=== PATIENT | female | born 1945 | race Caucasian/White ===

== ENCOUNTER 2017-04-25 13:29 | Emergency (ER) | payer OTHER, MEDICARE ==
[2017-04-25] MEDS ORDERED: SODIUM CHLORIDE 0.9% 1,000 ML IV STA (14:00)
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
[2017-04-25] MEDS ORDERED: LORazepam 1 MG TAB PO STA (14:02)
[2017-04-25 14:35] LABS: Basophils % (A) 1 %; Eosinophils # (A) 0.1 k/uL (0-0.7); Eosinophils % (A) 2 %; HCT 41.8 % (34.0-46.0); Lymphocytes # (A) 1.7 k/uL (1.0-4.8); Lymphocytes % (A) 24 %; MCH 29.5 pg (25.0-35.0); MCHC 33.5 g/dL (31.0-37.0); Mean Platelet Volume 7.1; Monocytes # (A) 0.5 k/uL (0-1.0); Monocytes % (A) 6 %; Neutrophils % (A) 67 %; Platelet Count 308 k/uL (150-450); RBC 4.76 m/uL (3.80-5.40); RDW 13.7 % (11.5-15.5); WBC 7.4 k/uL (3.8-10.6)
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
[2017-04-25 14:43] LABS: Partial Thromboplastin Time 23.7 sec (22.0-30.0)
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
[2017-04-25 14:49] LABS: ALT 46 U/L (9-52); AST 29 U/L (14-36); Albumin 4.4 g/dL (3.5-5.0); Alcohol <10 mg/dL; Alkaline Phosphatase 82 U/L (38-126); Anion Gap 10 mmol/L; Blood Urea Nitrogen 16 mg/dL (7-17); Carbon Dioxide 28 mmol/L (22-30); Chloride 106 mmol/L (98-107); Glucose 103 mg/dL (74-99); Potassium 4.3 mmol/L (3.5-5.1); Sodium 144 mmol/L (137-145); Total Bilirubin 0.4 mg/dL (0.2-1.3); Total Protein 7.4 g/dL (6.3-8.2)
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
[2017-04-25 14:59] LABS: Creatine Kinase 49 U/L (30-135)
[2017-04-25 15:00] LABS: Appearance,Urine Clear (Clear); Bilirubin,Urine Negative (Negative); Blood,Urine Negative (Negative); Color,Urine Colorless; Glucose,Urine (UA) Negative (Negative); Ketones,Urine Negative (Negative); Leukocyte Esterase,Urine Negative (Negative); Nitrite,Urine Negative (Negative); PH, Urine 5.5 (5.0-8.0); Protein,Urine Negative (Negative); Specific Gravity,Urine 1.004 (1.001-1.035); Urobilinogen,Urine <2.0 mg/dL (<2.0)
[2017-04-25 15:11] LABS: Creatine Kinase MB 0.8 ng/mL (0.0-2.4); Troponin I <0.012 ng/mL (0.000-0.034)
[2017-04-25 18:32] VITALS: BP 152/63; PULSE 68; RESP 12; TEMP 98.5
== END 2017-04-25 18:51 | disposition home or self-care (01) ==
LOC: EC 13:29
DX: D32.9 Benign neoplasm of meninges, unspecified (principal); E78.5 Hyperlipidemia, unspecified; I10 Essential (primary) hypertension; E11.9 Type 2 diabetes mellitus without complications; Z79.82 Long term (current) use of aspirin; Z79.84 Long term (current) use of oral hypoglycemic drugs; Z79.899 Other long term (current) drug therapy; V49.50XA Passenger injured in collision with unspecified motor vehicles in traffic accident, initial encounter; Y93.89 Activity, other specified; Y92.410 Unspecified street and highway as the place of occurrence of the external cause
CPT/HCPCS: 36415; 70450; 71045; 72170; 80053; 80320; 81003; 82550; 82553; 84484; 85025; 85610; 85730; 93005; 96360; 96361; 99284

== ENCOUNTER → 2017-11-12 | Outpatient (CLI) | payer MEDICARE ==
--- NOTE | 2017-11-13 12:16 | ECHOF ---
Referral Reason:R55 syncope and collapse MEASUREMENTS -------- HEIGHT: 170.2 cm WEIGHT: 101.6 kg BP: IVSd: 1.3 cm (0.6 - 1.1) LVIDd: 3.8 cm (3.9 - 5.3) LVPWd: 1.5 cm (0.6 - 1.1) IVSs: 2.2 cm LVIDs: 2.5 cm LVPWs: 1.5 cm Ao Diam: 3.2 cm (2.0 - 3.7) AV Cusp: 1.8 cm (1.5 - 2.6) LA Diam: 3.7 cm (2.7 - 3.8) MV EXCURSION: 12.842 mm (> 18.000) MV EF SLOPE: 86 mm/s (70 - 150) EPSS: 0.7 cm MV E Dany: 1.08 m/s MV DecT: 205 ms MV A Dany: 1.11 m/s MV E/A Ratio: 0.97 RAP: 5.00 mmHg RVSP: 12.67 mmHg FINDINGS -------- Sinus rhythm. This was a technically good study. The left ventricular size is normal. There is mild concentric left ventricular hypertrophy. Overa ll left ventricular systolic function is normal with, an EF between 55 - 60 %. The right ventricle is normal in size and function. The left atrium is normal in size. The right atrium is normal in size. The aortic valve is trileaflet and appears structurally normal. There is trace mitral regurgitation. Trace tricuspid regurgitation present. The right ventricular systolic pressure, as measured by Dopp ler, is 12.67mmHg. Pulmonic valve appears structurally normal. The aortic root size is normal. The pericardium is normal. CONCLUSIONS -------- 1. Sinus rhythm. 2. This was a technically good study. 3. The left ventricular size is normal. 4. There is mild concentric left ventricular hypertrophy. 5. Overall left ventricular systolic function is normal with, an EF between 55 - 60 %. 6. The right ventricle is normal in size and function. 7. The left atrium is normal in size. 8. The right atrium is normal in size. 9. The aortic valve is trileaflet and appears structurally normal. 10. There is trace mitral regurgitation. 11. Trace tricuspid regurgitation present. 12. The right ventricular systolic pressure, as measured by Doppler, is 12.67mmHg. 13. Pulmonic valve appears structurally normal. 14. The aortic root size is normal. 15. The pericardium is normal. MIXER AND BLENDER: Candice Gagnon RDCS
== END | disposition home or self-care (01) ==
LOC: RADECHMAIN 12:55
PROVIDERS: ATTEND Family Medicine
DX: I08.1 Rheumatic disorders of both mitral and tricuspid valves (principal); I11.9 Hypertensive heart disease without heart failure
CPT/HCPCS: 93306

== ENCOUNTER → 2017-12-03 | Outpatient (CLI) | payer MEDICARE | LOC: RADMRIMAIN 12:05 | PROVIDERS: ATTEND Family Medicine | DX: Z53.9 Procedure and treatment not carried out, unspecified reason (principal) ==

== ENCOUNTER 2018-02-05 15:36 | Emergency (ER) | payer MEDICARE ==
[2018-02-05 15:56] VITALS: TEMP 98.2
--- NOTE | 2018-02-05 17:24 | ED ---
Recheck HPI - General Chief Complaint: Neuro Symptoms/Deficit Stated Complaint: Headaches/vision problems Time Seen by Provider: 02/05/18 16:55 Source: patient, RN notes reviewed, old records reviewed Mode of arrival: ambulatory Limitations: no limitations - History of Present Illness Initial Comments: This is a 72-year-old female the ER for evaluation. Today she presents for evaluation regards to headache dizziness vision changes in blood pressure issues. Patient has been increasing her blood pressure medication will blood pressure is continued to run high. Patient denies any chest pain shortness of breath or abdominal pain. Patient is stable medically medication for quite some time. Patient's current finding of abnormal blood pressure was issue with the family doctor did note elevated blood pressure, patient has been continually checking her blood pressure been noticing it to be continually high. MD Complaint: other (Abnormal blood pressure) -: month(s) Initial Visit For: other (Abnormal blood pressure) Symptoms Since Prior Visit: no new symptoms Associated Symptoms: none Treatments Prior to Arrival: other (None) - Related Data Home Medications Medication Instructions Recorded Confirmed Ascorbic Acid [Vitamin C] 1,000 mg PO DAILY 04/25/17 02/05/18 Aspirin 81 mg PO DAILY 04/25/17 02/05/18 Levothyroxine Sodium [Synthroid] 112 mcg PO DAILY 04/25/17 02/05/18 Metoprolol Succinate [Toprol XL] 25 mg PO DAILY 04/25/17 02/05/18 Insulin Glargine,Hum.rec.anlog 18 unit SQ HS 02/05/18 02/05/18 [Lantus Solostar] Lisinopril [Zestril] 10 mg PO DAILY 02/05/18 02/05/18 Omeprazole 20 mg PO DAILY 02/05/18 02/05/18 Previous Rx's Medication Instructions Recorded Metoprolol Succinate (ER) [Toprol 50 mg PO DAILY #30 tab 02/05/18 XL] Allergies Allergy/AdvReac Type Severity Reaction Status Date / Time No Known Allergies Allergy Verified 02/05/18 17:53 Review of Systems ROS Statement: Those systems with pertinent positive or pertinent negative responses have been documented in the HPI. ROS Other: All systems not noted in ROS Statement are negative. Past Medical History Past Medical History: Diabetes Mellitus, Hyperlipidemia, Hypertension History of Any Multi-Drug Resistant Organisms: None Reported Past Surgical History: Tubal Ligation Past Psychological History: No Psychological Hx Reported Smoking Status: Never smoker Past Alcohol Use History: None Reported Past Drug Use History: None Reported General Exam Limitations: no limitations General appearance: alert, in no apparent distress Head exam: Present: atraumatic, normocephalic, normal inspection Eye exam: Present: normal appearance, PERRL, EOMI. Absent: scleral icterus, conjunctival injection, periorbital swelling ENT exam: Present: normal exam, mucous membranes moist Neck exam: Present: normal inspection. Absent: tenderness, meningismus, lymphadenopathy Respiratory exam: Present: normal lung sounds bilaterally. Absent: respiratory distress, wheezes, rales, rhonchi, stridor Cardiovascular Exam: Present: regular rate, normal rhythm, normal heart sounds. Absent: systolic murmur, diastolic murmur, rubs, gallop, clicks GI/Abdominal exam: Present: soft, normal bowel sounds. Absent: distended, tenderness, guarding, rebound, rigid Extremities exam: Present: normal inspection, full ROM, normal capillary refill. Absent: tenderness, pedal edema, joint swelling, calf tenderness Back exam: Present: normal inspection Neurological exam: Present: alert, oriented X3, CN II-XII intact Psychiatric exam: Present: normal affect, normal mood Skin exam: Present: warm, dry, intact, normal color. Absent: rash Course Vital Signs 02/05/18 02/05/18 15:53 20:01 Temperature 98.2 F Pulse Rate 74 65 Respiratory 18 16 Rate Blood Pressure 157/75 145/71 O2 Sat by Pulse 97 98 Oximetry - Reevaluation(s) Reevaluation #1: Medical record is reviewed Patient has improvement in blood pressure here in the emergency room and remains asymptomatic Medical Decision Making - Medical Decision Making 72 female the ER for evaluation of elevated blood pressure. We did have normal CAT scan lab values and EKG here in the ER, patient can be discharged home with increased blood pressure - Lab Data Result diagrams: 02/05/18 18:03 02/05/18 18:03 Lab Results 02/05/18 02/05/18 02/05/18 Range/Units 18:03 18:03 18:03 WBC 7.6 (3.8-10.6) k/uL RBC 4.80 (3.80-5.40) m/uL Hgb 14.2 (11.4-16.0) gm/dL Hct 42.9 (34.0-46.0) % MCV 89.4 (80.0-100.0) fL MCH 29.5 (25.0-35.0) pg MCHC 33.0 (31.0-37.0) g/dL RDW 14.1 (11.5-15.5) % Plt Count 295 (150-450) k/uL Neutrophils % 59 % Lymphocytes % 31 % Monocytes % 5 % Eosinophils % 2 % Basophils % 1 % Neutrophils # 4.4 (1.3-7.7) k/uL Lymphocytes # 2.3 (1.0-4.8) k/uL Monocytes # 0.4 (0-1.0) k/uL Eosinophils # 0.2 (0-0.7) k/uL Basophils # 0.1 (0-0.2) k/uL Sodium 143 (137-145) mmol/L Potassium 4.5 (3.5-5.1) mmol/L Chloride 108 H (98-107) mmol/L Carbon Dioxide 25 (22-30) mmol/L Anion Gap 10 mmol/L BUN 17 (7-17) mg/dL Creatinine 0.76 (0.52-1.04) mg/dL Est GFR (CKD-EPI)AfAm >90 (>60 ml/min/1.73 sqM) Est GFR (CKD-EPI)NonAf 80 (>60 ml/min/1.73 sqM) Glucose 87 (74-99) mg/dL Calcium 9.9 (8.4-10.2) mg/dL Phosphorus 3.8 (2.5-4.5) mg/dL Magnesium 1.8 (1.6-2.3) mg/dL Total Bilirubin 0.5 (0.2-1.3) mg/dL AST 29 (14-36) U/L ALT 35 (9-52) U/L Alkaline Phosphatase 86 (38-126) U/L Total Creatine Kinase 52 (30-135) U/L CK-MB (CK-2) 1.0 (0.0-2.4) ng/mL CK-MB (CK-2) Rel Index 1.9 Troponin I <0.012 (0.000-0.034) ng/mL Total Protein 7.7 (6.3-8.2) g/dL Albumin 4.5 (3.5-5.0) g/dL Urine Color Urine Appearance (Clear) Urine pH (5.0-8.0) Ur Specific [place] (1.001-1.035) Urine Protein (Negative) Urine Glucose (UA) (Negative) Urine Ketones (Negative) Urine Blood (Negative) Urine Nitrite (Negative) Urine Bilirubin (Negative) Urine Urobilinogen (<2.0) mg/dL Ur Leukocyte Esterase (Negative) Urine RBC (0-5) /hpf Urine WBC (0-5) /hpf 02/05/18 Range/Units 19:32 WBC (3.8-10.6) k/uL RBC (3.80-5.40) m/uL Hgb (11.4-16.0) gm/dL Hct (34.0-46.0) % MCV (80.0-100.0) fL MCH (25.0-35.0) pg MCHC (31.0-37.0) g/dL RDW (11.5-15.5) % Plt Count (150-450) k/uL Neutrophils % % Lymphocytes % % Monocytes % % Eosinophils % % Basophils % % Neutrophils # (1.3-7.7) k/uL Lymphocytes # (1.0-4.8) k/uL Monocytes # (0-1.0) k/uL Eosinophils # (0-0.7) k/uL Basophils # (0-0.2) k/uL Sodium (137-145) mmol/L Potassium (3.5-5.1) mmol/L Chloride (98-107) mmol/L Carbon Dioxide (22-30) mmol/L Anion Gap mmol/L BUN (7-17) mg/dL Creatinine (0.52-1.04) mg/dL Est GFR (CKD-EPI)AfAm (>60 ml/min/1.73 sqM) Est GFR (CKD-EPI)NonAf (>60 ml/min/1.73 sqM) Glucose (74-99) mg/dL Calcium (8.4-10.2) mg/dL Phosphorus (2.5-4.5) mg/dL Magnesium (1.6-2.3) mg/dL Total Bilirubin (0.2-1.3) mg/dL AST (14-36) U/L ALT (9-52) U/L Alkaline Phosphatase (38-126) U/L Total Creatine Kinase (30-135) U/L CK-MB (CK-2) (0.0-2.4) ng/mL CK-MB (CK-2) Rel Index Troponin I (0.000-0.034) ng/mL Total Protein (6.3-8.2) g/dL Albumin (3.5-5.0) g/dL Urine Color Light Yellow Urine Appearance Clear (Clear) Urine pH 6.0 (5.0-8.0) Ur Specific [place] 1.006 (1.001-1.035) Urine Protein Negative (Negative) Urine Glucose (UA) Negative (Negative) Urine Ketones Negative (Negative) Urine Blood Negative (Negative) Urine Nitrite Negative (Negative) Urine Bilirubin Negative (Negative) Urine Urobilinogen <2.0 (<2.0) mg/dL Ur Leukocyte Esterase Small H (Negative) Urine RBC 1 (0-5) /hpf Urine WBC 5 (0-5) /hpf - EKG Data -: EKG Interpreted by Me (EKG shows sinus bradycardia, rate 59, MD 160, QRS 90 QTc 427) - Radiology Data Radiology results: report reviewed (CT brain is negative for acute disease), image reviewed Disposition Clinical Impression: Uncontrolled hypertension Disposition: HOME SELF-CARE Condition: Good Instructions: Hypertension (ED) Prescriptions: Metoprolol Succinate (ER) [Toprol XL] 50 mg PO DAILY #30 tab Is patient prescribed a controlled substance at d/c from ED?: No Referrals: Mitch Hayes DO [Primary Care Provider] - 1-2 days
[2018-02-05] MEDS ORDERED: LABETALOL 5 MG/ML VIAL MDV IVP STA (18:27)
--- NOTE | 2018-02-05 18:53 | CT ---
EXAMINATION TYPE: CT brain wo con DATE OF EXAM: 02/05/2018 COMPARISON: 04/25/2017 HISTORY: HEADACHES, VISION ISSUES, HYPERTENTION CT DLP: 1105.4 mGycm Automated exposure control for dose reduction was used. FINDINGS: Ventricles and sulci appear normal. There is no mass effect nor midline shift. There is no sign of in tracranial hemorrhage. The calvarium is intact. There is 2 cm extra-axial calcifying mass at the inne r table of the lateral right frontal lobe consistent with a meningioma. IMPRESSION: RIGHT FRONTAL LOBE CALCIFYING MASS CONSISTENT WITH MENINGIOMA AND UNCHANGED COMPARED TO OLD EXAM. NO ACUTE INTRACRANIAL ABNORMALITY.
[2018-02-05 19:31] LABS: Basophils # (A) 0.1 k/uL (0-0.2); Basophils % (A) 1 %; Eosinophils # (A) 0.2 k/uL (0-0.7); Eosinophils % (A) 2 %; HCT 42.9 % (34.0-46.0); HGB 14.2 gm/dL (11.4-16.0); Lymphocytes # (A) 2.3 k/uL (1.0-4.8); Lymphocytes % (A) 31 %; MCH 29.5 pg (25.0-35.0); MCV 89.4 fL (80.0-100.0); Monocytes # (A) 0.4 k/uL (0-1.0); Monocytes % (A) 5 %; Neutrophils # (A) 4.4 k/uL (1.3-7.7); Neutrophils % (A) 59 %; Platelet Count 295 k/uL (150-450); RDW 14.1 % (11.5-15.5); WBC 7.6 k/uL (3.8-10.6)
[2018-02-05 19:43] LABS: ALT 35 U/L (9-52); AST 29 U/L (14-36); Albumin 4.5 g/dL (3.5-5.0); Alkaline Phosphatase 86 U/L (38-126); Anion Gap 10 mmol/L; Blood Urea Nitrogen 17 mg/dL (7-17); Calcium 9.9 mg/dL (8.4-10.2); Carbon Dioxide 25 mmol/L (22-30); Chloride 108 mmol/L (98-107); Glucose 87 mg/dL (74-99); Magnesium 1.8 mg/dL (1.6-2.3); Phosphorus 3.8 mg/dL (2.5-4.5); Potassium 4.5 mmol/L (3.5-5.1); Sodium 143 mmol/L (137-145); Total Bilirubin 0.5 mg/dL (0.2-1.3); Total Protein 7.7 g/dL (6.3-8.2)
[2018-02-05 19:50] LABS: Creatine Kinase 52 U/L (30-135)
[2018-02-05 19:57] LABS: Appearance,Urine Clear (Clear); Bilirubin,Urine Negative (Negative); Blood,Urine Negative (Negative); Color,Urine Light Yellow; Glucose,Urine (UA) Negative (Negative); Ketones,Urine Negative (Negative); Leukocyte Esterase,Urine Small (Negative); Nitrite,Urine Negative (Negative); Protein,Urine Negative (Negative); RBC,Urine 1 /hpf (0-5); Specific Gravity,Urine 1.006 (1.001-1.035); Urobilinogen,Urine <2.0 mg/dL (<2.0); WBC,Urine 5 /hpf (0-5)
[2018-02-05 20:02] VITALS: BP 145/71; PULSE 65; RESP 16
[2018-02-05 20:03] LABS: Troponin I <0.012 ng/mL (0.000-0.034)
== END 2018-02-05 20:07 | disposition home or self-care (01) ==
LOC: EC 15:36
DX: I10 Essential (primary) hypertension (principal); E11.9 Type 2 diabetes mellitus without complications; Z79.4 Long term (current) use of insulin; Z79.82 Long term (current) use of aspirin; Z79.899 Other long term (current) drug therapy
CPT/HCPCS: 36415; 70450; 80053; 81001; 82550; 82553; 83735; 84100; 84484; 85025; 93005; 96374; 99285

== ENCOUNTER → 2018-11-01 | Outpatient (CLI) | payer MEDICARE ==
--- NOTE | 2018-11-01 14:39 | XR ---
EXAMINATION TYPE: XR finger RT DATE OF EXAM: 11/01/2018 COMPARISON: None HISTORY: Cellulitis, July stuck in finger TECHNIQUE: 2 view right index finger FINDINGS: There are advanced degenerative changes at the index finger metacarpal phalangeal joint spa ce. Note is made of degenerative changes at the first metacarpal phalangeal joint space the scaphoid. No acute fractures are evident. Radiopaque or radiolucent foreign bodies are not identified. There is subluxation of the proximal phalanx on the second metacarpal. IMPRESSION: 1. Advanced degenerative changes second metacarpal phalangeal joint space. 2. Mild diffuse joint space degenerative changes of the remaining visualized osseous structures. 3. No foreign bodies are identified.
== END ==
LOC: RADXRYALE 13:57
PROVIDERS: ATTEND Physician Assistant Medical
DX: M19.041 Primary osteoarthritis, right hand (principal)

== ENCOUNTER → 2019-01-09 | Outpatient (CLI) | payer MEDICARE ==
--- NOTE | 2019-01-10 13:54 | MM ---
Reason for exam: screening (asymptomatic). Last mammogram was performed 3 years and 1 month ago. History: Patient is postmenopausal. Took hormonal contraceptives for 1 year beginning at age 21. Physical Findings: A clinical breast exam by your physician is recommended on an annual basis and results should be correlated with mammographic findings. MG 3D Screening Mammo W/Cad Bilateral CC and MLO view(s) were taken. Prior study comparison: November 26, 2015, bilateral MG 3d screening mammo w/cad. There are scattered fibroglandular densities. No suspicious abnormality. No significant changes when compared with prior studies. ASSESSMENT: Negative, BI-RAD 1 RECOMMENDATION: Routine screening mammogram of both breasts in 1 year.
== END | disposition home or self-care (01) ==
LOC: RADMAMWWP 09:14
PROVIDERS: ATTEND Family Medicine
DX: Z12.31 Encounter for screening mammogram for malignant neoplasm of breast (principal)
CPT/HCPCS: 77063; 77067

== ENCOUNTER → 2019-08-27 | Outpatient (CLI) | payer MEDICARE ==
--- NOTE | 2019-08-27 14:49 | US ---
EXAMINATION TYPE: US kidneys/renal and bladder DATE OF EXAM: 08/27/2019 COMPARISON: NONE CLINICAL HISTORY: I129 Chronic Kidney Disease, N183 Chronic kidney disease. CKD EXAM MEASUREMENTS: Right Kidney: 10.5 x 4.4 x 4.4 cm Left Kidney: 10.9 x 5.6 x 4.8 cm Right Kidney: wnl Left Kidney: wnl Bladder: wnl Bilateral Jets seen: Yes There is no evidence for hydronephrosis at this point in time. No nephrolithiasis is seen. No aditya s are identified on images saved. The urinary bladder is satisfactorily distended. Bilateral ureter al jets are seen. IMPRESSION: No hydronephrosis is seen bilaterally.
== END | disposition home or self-care (01) ==
LOC: RADUSWWP 14:19
PROVIDERS: ATTEND Family Medicine
DX: I12.9 Hypertensive chronic kidney disease with stage 1 through stage 4 chronic kidney disease, or unspecified chronic kidney disease (principal); N18.3 Chronic kidney disease, stage 3 (moderate)
CPT/HCPCS: 76770

== ENCOUNTER → 2020-06-02 | Outpatient (CLI) | payer MEDICARE ==
--- NOTE | 2020-06-02 09:27 | US ---
EXAMINATION TYPE: US abdomen limited DATE OF EXAM: 06/02/2020 COMPARISON: NONE CLINICAL HISTORY: R10.11 RUQ Pain. right upper back issue, got out of bed a couple weeks ago and back pain was present. EXAM MEASUREMENTS: Liver Length: 18.8 cm Gallbladder Wall: 0.2 cm CBD: 0.6 cm Right Kidney: 9.1 x 3.4 x 4.2 cm Pancreas: wnl Liver: wnl Gallbladder: wnl Evidence for sonographic Rivers's sign: no CBD: wnl Right Kidney: wnl IMPRESSION: No distinct abnormality seen.
== END | disposition home or self-care (01) ==
LOC: RADUSWWP 08:04
PROVIDERS: ATTEND Family Medicine
DX: R10.11 Right upper quadrant pain (principal)
CPT/HCPCS: 76705

== ENCOUNTER 2021-02-20 13:26 | Inpatient (IN) | payer MEDICARE ==
[2021-02-20] MEDS ORDERED: SODIUM CHLORIDE 0.9% 1,000 ML IV STA (14:33)
--- NOTE | 2021-02-20 14:43 | ED ---
General Adult HPI - General Chief complaint: Dizziness Stated complaint: dizziness, BP fluctuating Time Seen by Provider: 02/20/21 14:06 Source: patient, family, RN notes reviewed Mode of arrival: EMS Limitations: no limitations - History of Present Illness Initial comments: 75-year-old female presents to the emergency department with complaints of dizz iness onset this morning. Patient states she is COVID +, with symptom onset February 09. States she was started on oral steroids Sunday the and declined the monoclonal antibody infusion at that time. States since Sunday she has had elevated with glucose readings and is using sliding scale insulin for coverage. Woke up this morning with profuse sweating, feeling lightheaded, and somewhat short of breath. Reports a morning blood pressure reading of 66/49 and glucose of 130. He also had a mild headache for which she took Tylenol and had improvement. States she was unable to prepare a meal for herself due to her dizziness therefore family came over and assisted her. Has also had decreased appetite and poor oral intake. States recheck of her blood pressure was 101/53 around noon. States dizziness/lightheaded has persisted; shortness of breath and diaphoresis have resolved. Patient denies fever, chills, blurry vision, chest pain, difficulty breathing, abdominal pain, nausea, vomiting, diarrhea, dysuria, or hematuria. - Related Data Home Medications Medication Instructions Recorded Confirmed Ascorbic Acid [Vitamin C] 1,000 mg PO BID 04/25/17 02/20/21 Aspirin 81 mg PO DAILY 04/25/17 02/20/21 Levothyroxine Sodium [Synthroid] 112 mcg PO DAILY 04/25/17 02/20/21 Insulin Glargine,Hum.rec.anlog 24 unit SQ HS 02/05/18 02/20/21 [Lantus Solostar] Omeprazole 20 mg PO AC-BRKFST 02/05/18 02/20/21 Allopurinol [Zyloprim] 100 mg PO DAILY 02/20/21 02/20/21 Carvedilol [Coreg] 25 mg PO BID 02/20/21 02/20/21 Cholecalciferol [Vitamin D3 (25 25 mcg PO DAILY 02/20/21 02/20/21 Mcg = 1000 Iu)] Ezetimibe [Zetia] 10 mg PO DAILY 02/20/21 02/20/21 Furosemide [Lasix] 20 mg PO DAILY PRN 02/20/21 02/20/21 Indapamide [Lozol] 1.25 mg PO DAILY 02/20/21 02/20/21 Insulin Lispro [humaLOG Kwikpen] See Protocol SQ AC-TID 02/20/21 02/20/21 Isosorbide Mononitrate ER [Imdur] 30 mg PO DAILY 02/20/21 02/20/21 Multivitamins, Thera [Multivitamin 1 tab PO DAILY 02/20/21 02/20/21 (formulary)] [place]-3 Fatty Acids/Fish Oil [Fish 1 cap PO BID 02/20/21 02/20/21 Oil 1,000 mg Softgel] Rosuvastatin [Crestor] 10 mg PO HS 02/20/21 02/20/21 Zinc 50 mg PO DAILY 02/20/21 02/20/21 lisinopriL [Zestril] 20 mg PO DAILY 02/20/21 02/20/21 Allergies Allergy/AdvReac Type Severity Reaction Status Date / Time No Known Allergies Allergy Verified 02/20/21 16:01 Review of Systems ROS Statement: Those systems with pertinent positive or pertinent negative responses have been documented in the HPI. ROS Other: All systems not noted in ROS Statement are negative. Past Medical History Past Medical History: Diabetes Mellitus, Hyperlipidemia, Hypertension History of Any Multi-Drug Resistant Organisms: None Reported Past Surgical History: Tubal Ligation Past Psychological History: No Psychological Hx Reported Smoking Status: Never smoker Past Alcohol Use History: None Reported Past Drug Use History: None Reported General Exam Limitations: no limitations (Developed, well nourished female in no acute distress. Initial temperature 98.1, pulse 73, respirations 18, blood pressure 102/63, pulse ox 99% on room air.) General appearance: alert, in no apparent distress Head exam: Present: atraumatic, normocephalic, normal inspection Eye exam: Present: normal appearance, PERRL, EOMI. Absent: scleral icterus, conjunctival injection, periorbital swelling, periorbital tenderness Pupils: Present: normal accommodation ENT exam: Present: mucous membranes dry Neck exam: Present: normal inspection. Absent: tenderness, meningismus, lymphadenopathy Respiratory exam: Present: normal lung sounds bilaterally. Absent: respiratory distress, wheezes, rales, rhonchi, stridor Cardiovascular Exam: Present: regular rate, normal rhythm, normal heart sounds. Absent: systolic murmur, diastolic murmur, rubs, gallop, clicks GI/Abdominal exam: Present: soft, normal bowel sounds. Absent: distended, tenderness, guarding, rebound, rigid Neurological exam: Present: alert, oriented X3, CN II-XII intact Psychiatric exam: Present: normal affect, normal mood Skin exam: Present: warm, dry, intact, normal color Course Vital Signs 02/20/21 02/20/21 02/20/21 13:56 17:00 18:14 Temperature 98.1 F Pulse Rate 73 67 80 Respiratory 18 18 18 Rate Blood Pressure 102/63 119/53 154/77 O2 Sat by Pulse 99 98 96 Oximetry 02/20/21 02/20/21 02/20/21 18:16 19:19 23:11 Temperature Pulse Rate 67 74 Respiratory 16 16 Rate Blood Pressure 139/63 154/77 151/79 O2 Sat by Pulse 97 98 Oximetry - Reevaluation(s) Reevaluation #1: 02/20/21 17:47 Upon reevaluation, patient's family is present at bedside. Discussed recommendation that patient be admitted to the hospital for further evaluation and treatment due to her persistent weakness and concern for her safety at home. Patient and family are agreeable to this plan. She is resting comfortably and is able to tolerate small amount of oral intake. Medical Decision Making - Medical Decision Making This is a 75-year-old female with a past medical history of diabetes and hypertension who presents to the emergency department for evaluation of weakness. Patient is Covid positive and is on oral steroids. Upon exam, patient is weak and has very dry oral mucosa. Vital signs are stable. However, she reports an episode of hypotension and diaphoresis this morning. States she is too weak to care for herself and reports significant decrease in appetite and oral intake. Laboratory studies were obtained showing dehydration and renal impairment. D-Dimer is elevated, though when adjusted for age, is not alarming. Blood glucose is 110. Chest Xray and EKG are unremarkable. After discussion with patient and family, it was felt that patient would benefit from inpatient admission for IV hydration, blood pressure monitoring, and tight glucose control. This patient's care was discussed with attending, Dr. Ferrell who spoke with admitting physician provider. - Lab Data Result diagrams: 02/20/21 15:25 02/20/21 15:25 Lab Results 02/20/21 02/20/21 02/20/21 Range/Units 15:25 15:25 15:25 WBC 10.3 (3.8-10.6) k/uL RBC 4.43 (3.80-5.40) m/uL Hgb 13.1 (11.4-16.0) gm/dL Hct 39.5 (34.0-46.0) % MCV 89.1 (80.0-100.0) fL MCH 29.6 (25.0-35.0) pg MCHC 33.2 (31.0-37.0) g/dL RDW 15.1 (11.5-15.5) % Plt Count 262 (150-450) k/uL MPV 7.0 Neutrophils % 81 % Lymphocytes % 13 % Monocytes % 4 % Eosinophils % 0 % Basophils % 0 % Neutrophils # 8.3 H (1.3-7.7) k/uL Lymphocytes # 1.4 (1.0-4.8) k/uL Monocytes # 0.5 (0-1.0) k/uL Eosinophils # 0.0 (0-0.7) k/uL Basophils # 0.0 (0-0.2) k/uL PT (9.0-12.0) sec INR (<1.2) APTT (22.0-30.0) sec D-Dimer (<0.60) mg/L FEU Sodium 131 L (137-145) mmol/L Potassium 3.6 (3.5-5.1) mmol/L Chloride 101 (98-107) mmol/L Carbon Dioxide 21 L (22-30) mmol/L Anion Gap 9 mmol/L BUN 44 H (7-17) mg/dL Creatinine 1.20 H (0.52-1.04) mg/dL Est GFR (CKD-EPI)AfAm 52 (>60 ml/min/1.73 sqM) Est GFR (CKD-EPI)NonAf 45 (>60 ml/min/1.73 sqM) Glucose 110 H (74-99) mg/dL Calcium 8.4 (8.4-10.2) mg/dL Total Bilirubin 0.8 (0.2-1.3) mg/dL AST 30 (14-36) U/L ALT 20 (4-34) U/L Alkaline Phosphatase 63 (38-126) U/L Troponin I <0.012 (0.000-0.034) ng/mL Total Protein 6.2 L (6.3-8.2) g/dL Albumin 3.3 L (3.5-5.0) g/dL Urine Color Urine Appearance (Clear) Urine pH (5.0-8.0) Ur Specific [place] (1.001-1.035) Urine Protein (Negative) Urine Glucose (UA) (Negative) Urine Ketones (Negative) Urine Blood (Negative) Urine Nitrite (Negative) Urine Bilirubin (Negative) Urine Urobilinogen (<2.0) mg/dL Ur Leukocyte Esterase (Negative) Urine RBC (0-5) /hpf Urine WBC (0-5) /hpf Urine Bacteria (None) /hpf Hyaline Casts (0-2) /lpf Urine Mucus (None) /hpf 02/20/21 02/20/21 Range/Units 15:25 18:43 WBC (3.8-10.6) k/uL RBC (3.80-5.40) m/uL Hgb (11.4-16.0) gm/dL Hct (34.0-46.0) % MCV (80.0-100.0) fL MCH (25.0-35.0) pg MCHC (31.0-37.0) g/dL RDW (11.5-15.5) % Plt Count (150-450) k/uL MPV Neutrophils % % Lymphocytes % % Monocytes % % Eosinophils % % Basophils % % Neutrophils # (1.3-7.7) k/uL Lymphocytes # (1.0-4.8) k/uL Monocytes # (0-1.0) k/uL Eosinophils # (0-0.7) k/uL Basophils # (0-0.2) k/uL PT 10.1 (9.0-12.0) sec INR 0.9 (<1.2) APTT 23.8 (22.0-30.0) sec D-Dimer 0.68 H (<0.60) mg/L FEU Sodium (137-145) mmol/L Potassium (3.5-5.1) mmol/L Chloride (98-107) mmol/L Carbon Dioxide (22-30) mmol/L Anion Gap mmol/L BUN (7-17) mg/dL Creatinine (0.52-1.04) mg/dL Est GFR (CKD-EPI)AfAm (>60 ml/min/1.73 sqM) Est GFR (CKD-EPI)NonAf (>60 ml/min/1.73 sqM) Glucose (74-99) mg/dL Calcium (8.4-10.2) mg/dL Total Bilirubin (0.2-1.3) mg/dL AST (14-36) U/L ALT (4-34) U/L Alkaline Phosphatase (38-126) U/L Troponin I (0.000-0.034) ng/mL Total Protein (6.3-8.2) g/dL Albumin (3.5-5.0) g/dL Urine Color Yellow Urine Appearance Clear (Clear) Urine pH 5.5 (5.0-8.0) Ur Specific [place] 1.012 (1.001-1.035) Urine Protein Negative (Negative) Urine Glucose (UA) Negative (Negative) Urine Ketones Negative (Negative) Urine Blood Negative (Negative) Urine Nitrite Negative (Negative) Urine Bilirubin Negative (Negative) Urine Urobilinogen <2.0 (<2.0) mg/dL Ur Leukocyte Esterase Moderate H (Negative) Urine RBC 1 (0-5) /hpf Urine WBC 16 H (0-5) /hpf Urine Bacteria Occasional H (None) /hpf Hyaline Casts 1 (0-2) /lpf Urine Mucus Rare H (None) /hpf - EKG Data EKG shows normal: sinus rhythm Rate: normal EKG Comments: EKG was obtained at 1513 and shows normal sinus rhythm. Ventricular rate 63, HI interval 150, QRS duration 80, QT/QTc 422/with 31. Interpretation normal ECG. - Radiology Data Radiology results: report reviewed, image reviewed Two-view chest x-ray was obtained. Report was reviewed in its entirety. Impression per Dr. Weiss as no acute cardiopulmonary process. Disposition Clinical Impression: COVID-19, Weakness, Dehydration Disposition: ADMITTED IP TO THIS [facility] Condition: Serious Is patient prescribed a controlled substance at d/c from ED?: No Decision Date: 02/20/21 Decision Time: 19:51
--- NOTE | 2021-02-20 15:46 | XR ---
EXAMINATION TYPE: XR chest 2V DATE OF EXAM: 02/20/2021 COMPARISON: Radiograph 04/25/2017 HISTORY: Cough TECHNIQUE: Frontal and lateral views of the chest are obtained. FINDINGS: There is no focal air space opacity, pleural effusion, or pneumothorax seen. The cardiac silhouette size is within normal limits. The osseous structures are intact. IMPRESSION: No acute cardiopulmonary process.
[2021-02-20 15:50] LABS: Albumin 3.3 g/dL (3.5-5.0); Calcium 8.4 mg/dL (8.4-10.2); Potassium 3.6 mmol/L (3.5-5.1); Total Bilirubin 0.8 mg/dL (0.2-1.3); Total Protein 6.2 g/dL (6.3-8.2)
[2021-02-20 15:51] LABS: INR 0.9 (<1.2); Partial Thromboplastin Time 23.8 sec (22.0-30.0); Prothrombin Time 10.1 sec (9.0-12.0)
[2021-02-20 16:10] LABS: Basophils % (A) 0 %; Eosinophils % (A) 0 %; HCT 39.5 % (34.0-46.0); HGB 13.1 gm/dL (11.4-16.0); Lymphocytes # (A) 1.4 k/uL (1.0-4.8); Lymphocytes % (A) 13 %; MCH 29.6 pg (25.0-35.0); MCHC 33.2 g/dL (31.0-37.0); MCV 89.1 fL (80.0-100.0); Monocytes # (A) 0.5 k/uL (0-1.0); Monocytes % (A) 4 %; Neutrophils # (A) 8.3 k/uL (1.3-7.7); Neutrophils % (A) 81 %; Platelet Count 262 k/uL (150-450); RBC 4.43 m/uL (3.80-5.40); RDW 15.1 % (11.5-15.5); WBC 10.3 k/uL (3.8-10.6)
[2021-02-20] MEDS ORDERED: SODIUM CHLORIDE 0.9% 500 ML 500 ML IV STA (17:45)
[2021-02-20] MEDS ORDERED: IBUPROFEN 600 MG TAB PO STA (18:05)
[2021-02-20 18:54] LABS: Appearance,Urine Clear (Clear); Bacteria,Urine Occasional /hpf; Bilirubin,Urine Negative (Negative); Blood,Urine Negative (Negative); Color,Urine Yellow; Glucose,Urine (UA) Negative (Negative); Hyaline Casts,Urine 1 /lpf (0-2); Ketones,Urine Negative (Negative); Leukocyte Esterase,Urine Moderate (Negative); Mucus,Urine Rare /hpf; Nitrite,Urine Negative (Negative); PH, Urine 5.5 (5.0-8.0); Protein,Urine Negative (Negative); RBC,Urine 1 /hpf (0-5); Specific Gravity,Urine 1.012 (1.001-1.035); Urobilinogen,Urine <2.0 mg/dL (<2.0); WBC,Urine 16 /hpf (0-5)
[2021-02-20] MEDS ORDERED: ONDANSETRON 4 MG/2 ML VIAL IVP PRN (19:36)
[2021-02-20] MEDS ORDERED: NALOXONE 0.4 MG/ML 1 ML VIAL IV PRN (19:36)
[2021-02-20] MEDS: ATORVASTATIN 20 MG TAB PO SCH (20:47)
[2021-02-20] MEDS: carvediloL 12.5 MG TAB PO SCH (20:47)
[2021-02-20] MEDS: ASCORBIC ACID 500 MG TAB PO SCH (20:48)
[2021-02-20] MEDS: INSULIN DETEMIR (LEVEMIR) 100 UNIT/ML SYR SQ SCH (20:48)
[2021-02-20 20:55] LABS: Glucose,Whole Blood 153 mg/dL (75-99)
[2021-02-20] MEDS ORDERED: NON FORMULARY DRUG (Omega-3 Fatty Acids/Fish Oil [Fish Oil 1,000 Mg Softgel] 1 EACH Capsul PO SCH (21:00)
[2021-02-21] MEDS: ACETAMINOPHEN TAB 325 MG TAB PO PRN ×2 (08:00→17:28)
[2021-02-21] MEDS: SODIUM CHLORIDE 0.9% 1,000 ML IV SCH ×4 (09:12→20:27)
[2021-02-21] MEDS: ISOSORBIDE MONONITRATE ER 30 MG TAB.ER.24H PO SCH (09:12)
[2021-02-21] MEDS: PANTOPRAZOLE 40 MG TABLET PO SCH (09:13)
[2021-02-21] MEDS: MULTIVITAMINS, THERA 1 EACH TAB PO SCH (09:13)
[2021-02-21] MEDS: allopurinoL 100 MG TAB PO SCH (09:13)
[2021-02-21] MEDS: carvediloL 12.5 MG TAB PO SCH ×2 (09:13→18:13)
[2021-02-21] MEDS: ASCORBIC ACID 500 MG TAB PO SCH ×2 (09:13→20:27)
[2021-02-21] MEDS: hydroCHLOROthiazide 12.5 MG CAP PO SCH (09:14)
[2021-02-21] MEDS: ZINC SULFATE 220 MG CAP PO SCH (09:14)
[2021-02-21] MEDS: ASPIRIN 81 MG PO SCH (09:14)
[2021-02-21] MEDS: CHOLECALCIFEROL 25 MCG (1000 IU) TABLET PO SCH (09:14)
[2021-02-21 10:58] LABS: Basophils % (A) 0 %; Eosinophils % (A) 0 %; HCT 37.9 % (34.0-46.0); HGB 12.4 gm/dL (11.4-16.0); Lymphocytes # (A) 0.9 k/uL (1.0-4.8); Lymphocytes % (A) 9 %; MCH 29.1 pg (25.0-35.0); MCHC 32.8 g/dL (31.0-37.0); MCV 88.6 fL (80.0-100.0); Mean Platelet Volume 7.2; Monocytes # (A) 0.4 k/uL (0-1.0); Monocytes % (A) 4 %; Neutrophils # (A) 8.3 k/uL (1.3-7.7); Neutrophils % (A) 85 %; Platelet Count 263 k/uL (150-450); RBC 4.28 m/uL (3.80-5.40); RDW 14.7 % (11.5-15.5); WBC 9.7 k/uL (3.8-10.6)
[2021-02-21 11:09] LABS: Calcium 8.3 mg/dL (8.4-10.2); Potassium 3.8 mmol/L (3.5-5.1)
--- NOTE | 2021-02-21 11:40 | P.HPIM ---
History of Present Illness This is a pleasant 75 years old female with past medical history of diabetes mellitus, hypertension, hyperlipidemia, gout, hypothyroidism. Her PCP is Dr. 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 Her system has been going on for about a week. She denies chest pain or dyspnea. No abdominal pain or vomiting or diarrhea. She denies any dysuria or urgency or suprapubic tenderness. But also she is diabetic. No numbness or weakness in limbs. No blurred vision or slurred speech. She denies smoking, alcohol or illicit drug She has dry mucous membranes so decreased appetite and eating drinking for the last few days. The patient is saturating 97% on room air. She's been afebrile. Labs show an unremarkable CBC except for mild lymphopenia, d-dimer slightly elevated at 0.68. INR is normal at 0.9. Sodium is 131, BUN is 44 and creatinine 1.2. Baseline creatinine is 1.1-1.3. Urinalysis is suspicious for infection, maravilla first detected EKG showing normal sinus rhythm at [address]-T changes and 50 mL 431 Review of Systems CONSTITUTIONAL: No fever, no malaise, no fatigue. HEENT: No recent visual problems or hearing problems. Denied any sore throat. CARDIOVASCULAR: No orthopnea, PND, no palpitations, no syncope. PULMONARY: No shortness of breath, no cough, no hemoptysis. GASTROINTESTINAL: No diarrhea, no nausea, no vomiting, no abdominal pain. Normoactive bowel sounds. NEUROLOGICAL: No headaches, no weakness, no numbness. HEMATOLOGICAL: Denies any bleeding or petechiae. GENITOURINARY: Denies any burning micturition, frequency, or urgency. MUSCULOSKELETAL/RHEUMATOLOGICAL: Denies any joint pain, swelling, or any muscle pain. ENDOCRINE: Denies any polyuria or polydipsia. Past Medical History Past Medical History: Diabetes Mellitus, Hyperlipidemia, Hypertension History of Any Multi-Drug Resistant Organisms: None Reported Past Surgical History: Tubal Ligation Past Psychological History: No Psychological Hx Reported Smoking Status: Never smoker Past Alcohol Use History: None Reported Past Drug Use History: None Reported Medications and Allergies Home Medications Medication Instructions Recorded Confirmed Type Ascorbic Acid [Vitamin C] 1,000 mg PO BID 04/25/17 02/20/21 History Aspirin 81 mg PO DAILY 04/25/17 02/20/21 History Levothyroxine Sodium [Synthroid] 112 mcg PO DAILY 04/25/17 02/20/21 History Insulin Glargine,Hum.rec.anlog 24 unit SQ HS 02/05/18 02/20/21 History [Lantus Solostar] Omeprazole 20 mg PO AC-BRKFST 02/05/18 02/20/21 History Allopurinol [Zyloprim] 100 mg PO DAILY 02/20/21 02/20/21 History Carvedilol [Coreg] 25 mg PO BID 02/20/21 02/20/21 History Cholecalciferol [Vitamin D3 (25 25 mcg PO DAILY 02/20/21 02/20/21 History Mcg = 1000 Iu)] Ezetimibe [Zetia] 10 mg PO DAILY 02/20/21 02/20/21 History Furosemide [Lasix] 20 mg PO DAILY PRN 02/20/21 02/20/21 History Indapamide [Lozol] 1.25 mg PO DAILY 02/20/21 02/20/21 History Insulin Lispro [humaLOG Kwikpen] See Protocol SQ AC-TID 02/20/21 02/20/21 History Isosorbide Mononitrate ER [Imdur] 30 mg PO DAILY 02/20/21 02/20/21 History Multivitamins, Thera [Multivitamin 1 tab PO DAILY 02/20/21 02/20/21 History (formulary)] [place]-3 Fatty Acids/Fish Oil [Fish 1 cap PO BID 02/20/21 02/20/21 History Oil 1,000 mg Softgel] Rosuvastatin [Crestor] 10 mg PO HS 02/20/21 02/20/21 History Zinc 50 mg PO DAILY 02/20/21 02/20/21 History lisinopriL [Zestril] 20 mg PO DAILY 02/20/21 02/20/21 History Allergies Allergy/AdvReac Type Severity Reaction Status Date / Time No Known Allergies Allergy Verified 02/20/21 16:01 Physical Exam Vitals: Vital Signs Temp Pulse Resp BP Pulse Ox 02/21/21 09:24 73 20 120/50 95 02/21/21 06:00 78 16 120/88 99 02/20/21 23:11 74 16 151/79 98 02/20/21 19:19 67 16 154/77 97 02/20/21 18:16 139/63 02/20/21 18:14 80 18 154/77 96 02/20/21 17:00 67 18 119/53 98 02/20/21 13:56 98.1 F 73 18 102/63 99 GENERAL: The patient is alert and oriented x3, not in any acute distress. Well developed, well nourished. -HEENT: Pupils are round and equally reacting to light. EOMI. No scleral icterus. No conjunctival pallor. Normocephalic, atraumatic. No pharyngeal erythema. No thyromegaly. Dry mucous membranes CARDIOVASCULAR: S1 and S2 present. No murmurs, rubs, or gallops. PULMONARY: Chest is clear to auscultation, no wheezing or crackles. ABDOMEN: Soft, nontender, nondistended, normoactive bowel sounds. No palpable organomegaly. MUSCULOSKELETAL: No joint swelling or deformity. EXTREMITIES: No cyanosis, clubbing, or pedal edema. NEUROLOGICAL: Gross neurological examination did not reveal any focal deficits. SKIN: No rashes. No petechiae Results CBC & Chem 7: 02/21/21 10:34 02/20/21 15:25 Labs: Abnormal Lab Results - Last 24 Hours (Table) 02/20/21 02/20/21 02/20/21 Range/Units 15:25 15:25 15:25 Neutrophils # 8.3 H (1.3-7.7) k/uL Lymphocytes # (1.0-4.8) k/uL D-Dimer 0.68 H (<0.60) mg/L FEU Sodium 131 L (137-145) mmol/L Carbon Dioxide 21 L (22-30) mmol/L BUN 44 H (7-17) mg/dL Creatinine 1.20 H (0.52-1.04) mg/dL Glucose 110 H (74-99) mg/dL POC Glucose (mg/dL) (75-99) mg/dL Total Protein 6.2 L (6.3-8.2) g/dL Albumin 3.3 L (3.5-5.0) g/dL Ur Leukocyte Esterase (Negative) Urine WBC (0-5) /hpf Urine Bacteria (None) /hpf Urine Mucus (None) /hpf Coronavirus (PCR) (Not Detectd) 02/20/21 02/20/21 02/20/21 Range/Units 18:43 20:10 20:53 Neutrophils # (1.3-7.7) k/uL Lymphocytes # (1.0-4.8) k/uL D-Dimer (<0.60) mg/L FEU Sodium (137-145) mmol/L Carbon Dioxide (22-30) mmol/L BUN (7-17) mg/dL Creatinine (0.52-1.04) mg/dL Glucose (74-99) mg/dL POC Glucose (mg/dL) 153 H (75-99) mg/dL Total Protein (6.3-8.2) g/dL Albumin (3.5-5.0) g/dL Ur Leukocyte Esterase Moderate H (Negative) Urine WBC 16 H (0-5) /hpf Urine Bacteria Occasional H (None) /hpf Urine Mucus Rare H (None) /hpf Coronavirus (PCR) Detected A (Not Detectd) 02/21/21 Range/Units 10:34 Neutrophils # 8.3 H (1.3-7.7) k/uL Lymphocytes # 0.9 L (1.0-4.8) k/uL D-Dimer (<0.60) mg/L FEU Sodium (137-145) mmol/L Carbon Dioxide (22-30) mmol/L BUN (7-17) mg/dL Creatinine (0.52-1.04) mg/dL Glucose (74-99) mg/dL POC Glucose (mg/dL) (75-99) mg/dL Total Protein (6.3-8.2) g/dL Albumin (3.5-5.0) g/dL Ur Leukocyte Esterase (Negative) Urine WBC (0-5) /hpf Urine Bacteria (None) /hpf Urine Mucus (None) /hpf Coronavirus (PCR) (Not Detectd) Microbiology - Last 24 Hours (Table) 02/20/21 18:43 Urine Culture - Preliminary Urine,Voided Assessment and Plan Assessment: Generalized deconditioning and dehydration Possible Acute urinary tract infection versus asymptomatic bacteriuria Acute Covid infection without pneumonia Chronic kidney disease, stage III most likely diabetic nephropathy Diabetes mellitus Hypertension Hyperlipidemia History of gout hypothyroidism Plan: his is a pleasant 75 years old female who presents with UTI and covid infection without pneumonia continue with intravenous hydration Continue with ceftriaxone follow-up urine culture. Check production calcitonin Continue with vitamin C, vitamin D and zinc Check inflammatory markers Labs and medication were reviewed.. Continue same treatment. Continue with symptomatic treatment. Resume home medication. Monitor lytes and vitals. DVT and GI prophylaxis. Further recommendations depends on the clinical course of the patient DVT prophylaxis: Subcutaneous heparin GI Prophylaxis: Ppiu PT/OT: Pending Prognosis is guarded
[2021-02-21] MEDS: EZETIMIBE 10 MG TAB PO SCH (13:03)
[2021-02-21] MEDS: LEVOTHYROXINE 112 MCG TAB PO SCH (13:03)
[2021-02-21 17:22] LABS: Glucose,Whole Blood 100 mg/dL (75-99)
[2021-02-21 20:27] LABS: Glucose,Whole Blood 119 mg/dL (75-99)
[2021-02-21] MEDS: ATORVASTATIN 20 MG TAB PO SCH ×2 (20:27→20:32)
[2021-02-21] MEDS: TEMAZEPAM 15 MG CAP PO PRN ×2 (20:27→20:40)
[2021-02-21] MEDS: INSULIN DETEMIR (LEVEMIR) 100 UNIT/ML SYR SQ SCH (20:27)
[2021-02-22] MEDS: ENOXAPARIN 30 MG/0.3 ML SYRINGE SQ SCH ×2 (00:05→10:13)
[2021-02-22] MEDS: LEVOTHYROXINE 112 MCG TAB PO SCH (06:14)
[2021-02-22 08:07] LABS: Glucose,Whole Blood 63 mg/dL (75-99)
[2021-02-22 08:07] LABS: Glucose,Whole Blood 78 mg/dL (75-99)
[2021-02-22] MEDS: hydroCHLOROthiazide 12.5 MG CAP PO SCH (10:13)
[2021-02-22] MEDS: EZETIMIBE 10 MG TAB PO SCH (10:13)
[2021-02-22] MEDS: PANTOPRAZOLE 40 MG TABLET PO SCH (10:14)
[2021-02-22] MEDS: ASPIRIN 81 MG PO SCH (10:14)
[2021-02-22] MEDS: MULTIVITAMINS, THERA 1 EACH TAB PO SCH (10:14)
[2021-02-22] MEDS: ZINC SULFATE 220 MG CAP PO SCH (10:14)
[2021-02-22] MEDS: ISOSORBIDE MONONITRATE ER 30 MG TAB.ER.24H PO SCH (10:15)
[2021-02-22] MEDS: carvediloL 12.5 MG TAB PO SCH ×2 (10:15→18:35)
[2021-02-22] MEDS: ASCORBIC ACID 500 MG TAB PO SCH ×2 (10:15→21:36)
[2021-02-22] MEDS: CHOLECALCIFEROL 25 MCG (1000 IU) TABLET PO SCH (10:15)
[2021-02-22] MEDS: allopurinoL 100 MG TAB PO SCH (10:16)
[2021-02-22 10:37] LABS: Basophils # (A) 0.02 X 10*3/uL (0.00-0.10); Basophils % (A) 0.2 %; Eosinophils # (A) 0.03 X 10*3/uL (0.04-0.35); Eosinophils % (A) 0.3 %; HCT 37.3 % (37.2-46.3); HGB 12.1 g/dL (12.0-15.0); Lymphocytes % (A) 13.9 %; MCH 28.1 pg (27.0-32.0); MCHC 32.4 g/dL (32.0-37.0); MCV 86.5 fL (80.0-97.0); Mean Platelet Volume 9.7 fL (9.5-12.2); Monocytes # (A) 0.57 X 10*3/uL (0.20-1.00); Monocytes % (A) 6.1 %; Neutrophils # (A) 7.32 X 10*3/uL (1.80-7.70); Neutrophils % (A) 78.2 %; Platelet Count 240 X 10*3/uL (140-440); RBC 4.31 X 10*6/uL (4.10-5.20); RDW 15.2 % (11.5-14.5); WBC 9.36 X 10*3/uL (4.50-10.00)
[2021-02-22 11:11] LABS: C Reactive Protein 12.3 mg/dL (0.00-0.80)
[2021-02-22 11:15] LABS: African American GFR (CKD) 53.7 (60.0-200.0); Albumin 3.2 g/dL (3.8-4.9); Albumin/Globulin Ratio 1.37 (1.60-3.17); Anion Gap 13.1 mmol/L (10.00-18.00); BUN/Creat Ratio 20.95 Ratio (12.00-20.00); Blood Urea Nitrogen 24.3 mg/dL (9.0-27.0); Calcium 8.3 mg/dL (8.7-10.3); Carbon Dioxide 21.2 mmol/L (20.0-27.5); Globulin 2.3 g/dL (1.6-3.3); Non-African American GFR(CKD) 46.4 (60.0-200.0); Potassium 3.9 mmol/L (3.5-5.5); Total Bilirubin 0.4 mg/dL (0.30-1.20); Total Protein 5.5 g/dL (6.2-8.2)
[2021-02-22 12:17] LABS: Glucose,Whole Blood 90 mg/dL (75-99)
--- NOTE | 2021-02-22 13:14 | US ---
EXAMINATION TYPE: US venous doppler duplex LE DATE OF EXAM: 02/22/2021 1:06 PM COMPARISON: NONE CLINICAL HISTORY: leg swelling. Covid +, on baby aspirin, no redness SIDE PERFORMED: Bilateral TECHNIQUE: The lower extremity deep venous system is examined utilizing real time linear array sonog lucia with graded compression, doppler sonography and color-flow sonography. VESSELS IMAGED: Common Femoral Vein Deep Femoral Vein Greater Saphenous Vein * Femoral Vein Popliteal Vein Small Saphenous Vein * Proximal Calf Veins (* superficial vessels) Right Leg: Negative for DVT Left Leg: Negative for DVT, Rouleaux flow seen Grayscale, color doppler, spectral doppler imaging performed of the deep veins of the bilateral lower extremities. There is normal flow, compressibility, vascular waveforms. IMPRESSION: No ultrasound evidence for acute DVT in either lower extremity.
[2021-02-22 14:46] VITALS: BMI 35.5
--- NOTE | 2021-02-22 15:10 | NM ---
EXAMINATION TYPE: NM pul perfusion DATE OF EXAM: 02/22/2021 COMPARISON: Chest x-ray 2 days ago. HISTORY: Shortness of breath Following administration of 5.3 mCi Tc 99m MAA. Images obtained post injection. FINDINGS: In the posterior lower aspect of the right lower lobe seen best on RPO image there is moderate to lar ge sized segmental defect without chest x-ray abnormality. Some smaller segmental perfusion defects a re suspected. IMPRESSION: Nondiagnostic (low or intermediate probability)
[2021-02-22] MEDS: ACETAMINOPHEN TAB 325 MG TAB PO PRN (16:51)
[2021-02-22 17:27] LABS: Glucose,Whole Blood 105 mg/dL (75-99)
[2021-02-22] MEDS: SODIUM CHLORIDE 0.9% 1,000 ML IV SCH ×2 (20:04→21:36)
[2021-02-22 20:39] LABS: Glucose,Whole Blood 146 mg/dL (75-99)
[2021-02-22] MEDS ORDERED: INSULIN DETEMIR (LEVEMIR) 100 UNIT/ML SYR SQ SCH (21:00)
[2021-02-22] MEDS: ATORVASTATIN 20 MG TAB PO SCH (21:36)
--- NOTE | 2021-02-22 23:06 | P.PN ---
Subjective This is a pleasant 75 years old female with past medical history of diabetes mellitus, hypertension, hyperlipidemia, gout, hypothyroidism. Her PCP is Dr. Hayes an sustainable systems analyst Dr. nettles and she has a cuff stitcher at [place] for blockage and her heart but no history of stent She presents with generalized weakness, shakiness and hyperglycemia while she is on steroids for her Covid associated with some severe headache which is improved with Tylenol but not completely resolved and some postural lightheadedness. Her system has been going on for about a week. She denies chest pain or dyspnea. No abdominal pain or vomiting or diarrhea. She denies any dysuria or urgency or suprapubic tenderness. But also she is diabetic. No numbness or weakness in limbs. No blurred vision or slurred speech. She denies smoking, alcohol or illicit drug She has dry mucous membranes so decreased appetite and eating drinking for the last few days. The patient is saturating 97% on room air. She's been afebrile. Labs show an unremarkable CBC except for mild lymphopenia, d-dimer slightly elevated at 0.68. INR is normal at 0.9. Sodium is 131, BUN is 44 and creatinine 1.2. Baseline creatinine is 1.1-1.3. Urinalysis is suspicious for infection, maravilla first detected EKG showing normal sinus rhythm at [address]-T changes and 50 mL 431 02/22/2021 Patient today started feeling better but she still feels malaise and week, she is not tachypneic or shortness of breath but she staying on the bed most of the time. Patient developed a fever today for 102, her oxygen saturation was 92-93% on room air which is lower than yesterday. Her glucose was on the low side and this morning so we lowered her Levemir 24 units at bedtime down to 20 units. Other labs showed creatinine slightly better at 1.2 with evidence of chronic kidney disease stage III. Urine culture was negative. Broad discussed on it is only slightly elevated at 0.12. D-dimer increased from 0.68 up to 1.1. VQ scan is nondiagnostic with low and intermediate probability for PE, while Doppler of the lower extremity is negative for DVT. Patient kept on Lovenox renal dose after 20 mg daily, vitamin C, D and zinc, normal sinus 75 mm/h and Protonix We'll keep monitoring the patient for now. Check labs in the morning and repeat chest x-ray in the morning Objective - Vital Signs Vital signs: Vital Signs Temp 99.0 F 02/22/21 08:00 Pulse 70 02/22/21 08:00 Resp 18 02/22/21 08:00 BP 135/70 02/22/21 08:00 Pulse Ox 92 L 02/22/21 08:00 Intake & Output 02/21/21 02/22/21 02/22/21 18:59 06:59 18:59 Intake Total 120 120 Balance 120 120 Weight 100.244 kg 103 kg Intake: Oral 120 120 Other: # Voids 1 2 - Exam -GENERAL: The patient is alert and oriented x3, not in any acute distress. Well developed, well nourished. Malaise and generally weak HEENT: Pupils are round and equally reacting to light. EOMI. No scleral icterus. No conjunctival pallor. Normocephalic, atraumatic. No pharyngeal erythema. No thyromegaly. CARDIOVASCULAR: S1 and S2 present. No murmurs, rubs, or gallops. PULMONARY: Chest is clear to auscultation, no wheezing or crackles. ABDOMEN: Soft, nontender, nondistended, normoactive bowel sounds. No palpable organomegaly. MUSCULOSKELETAL: No joint swelling or deformity. EXTREMITIES: No cyanosis, clubbing, or pedal edema. NEUROLOGICAL: Gross neurological examination did not reveal any focal deficits. SKIN: No rashes. no petechiae. - Labs CBC & Chem 7: 02/22/21 06:35 02/22/21 06:35 Labs: Abnormal Lab Results - Last 24 Hours (Table) 02/21/21 02/21/21 02/21/21 Range/Units 10:34 10:34 17:18 Neutrophils # 8.3 H (1.3-7.7) k/uL Lymphocytes # 0.9 L (1.0-4.8) k/uL D-Dimer (<0.60) mg/L FEU Sodium 133 L (137-145) mmol/L Carbon Dioxide 20 L (22-30) mmol/L BUN 35 H (7-17) mg/dL Creatinine 1.30 H (0.52-1.04) mg/dL Glucose 120 H (74-99) mg/dL POC Glucose (mg/dL) 100 H (75-99) mg/dL Calcium 8.3 L (8.4-10.2) mg/dL 02/21/21 02/22/21 02/22/21 Range/Units 20:26 06:35 07:47 Neutrophils # (1.3-7.7) k/uL Lymphocytes # (1.0-4.8) k/uL D-Dimer 1.11 H (<0.60) mg/L FEU Sodium (137-145) mmol/L Carbon Dioxide (22-30) mmol/L BUN (7-17) mg/dL Creatinine (0.52-1.04) mg/dL Glucose (74-99) mg/dL POC Glucose (mg/dL) 119 H 63 L (75-99) mg/dL Calcium (8.4-10.2) mg/dL Microbiology - Last 24 Hours (Table) 02/20/21 18:43 Urine Culture - Final Urine,Voided Assessment and Plan Assessment: Generalized deconditioning and dehydration Possible Acute urinary tract infection versus asymptomatic bacteriuria Acute Covid infection without pneumonia Chronic kidney disease, stage III most likely diabetic nephropathy Diabetes mellitus Hypertension Hyperlipidemia History of gout hypothyroidism Plan: his is a pleasant 75 years old female who presents with UTI and covid infection without pneumonia continue with intravenous hydration Discontinue antibiotics for negative urine culture Continue with vitamin C, vitamin D and zinc And dexamethasone for mild hypoxia Perfusion scan and Doppler of the lower extremity are nondiagnostic. Check inflammatory markers, general labs and repeat chest x-ray in the morning. We will keep monitoring d-dimer in the morning Labs and medication were reviewed.. Continue same treatment. Continue with symptomatic treatment. Resume home medication. Monitor lytes and vitals. DVT and GI prophylaxis. Further recommendations depends on the clinical course of the patient DVT prophylaxis: Subcutaneous Lovenox GI Prophylaxis: Ppi PT/OT: Recommended home health care versus subacute rehab, bilingual social worker consulted Prognosis is guarded
[2021-02-22] MEDS: DEXAMETHASONE SOD PHOSPHATE 10 MG/ML 1 ML VIAL IVP SCH (23:18)
[2021-02-23] MEDS: LEVOTHYROXINE 112 MCG TAB PO SCH (05:57)
[2021-02-23] MEDS ORDERED: carvediloL 12.5 MG TAB PO SCH (07:30)
[2021-02-23 07:34] LABS: Glucose,Whole Blood 200 mg/dL (75-99)
--- NOTE | 2021-02-23 08:07 | XR ---
EXAMINATION TYPE: XR chest 1V DATE OF EXAM: 02/23/2021 COMPARISON: 02/20/2021 INDICATION: Short of breath TECHNIQUE: Single frontal view of the chest is obtained. FINDINGS: The heart size is normal. The pulmonary vasculature is normal. Mild scattered increased infiltrates through the right mid and lower lung field. This is nonspecific. Correlate for atelectasis and pneumonia. Consider atypical. IMPRESSION: 1. Developing nonspecific infiltrate in the right mid and lower lung field. Follow-up can be performe d.
[2021-02-23 09:36] LABS: Basophils # (A) 0.02 X 10*3/uL (0.00-0.10); Basophils % (A) 0.2 %; Eosinophils # (A) 0 X 10*3/uL (0.04-0.35); Eosinophils % (A) 0 %; HCT 36.9 % (37.2-46.3); Lymphocytes # (A) 0.71 X 10*3/uL (0.90-5.00); Lymphocytes % (A) 8.1 %; MCH 28.1 pg (27.0-32.0); MCHC 32.5 g/dL (32.0-37.0); MCV 86.4 fL (80.0-97.0); Mean Platelet Volume 9.6 fL (9.5-12.2); Monocytes # (A) 0.21 X 10*3/uL (0.20-1.00); Monocytes % (A) 2.4 %; Neutrophils # (A) 7.73 X 10*3/uL (1.80-7.70); Neutrophils % (A) 88.4 %; Platelet Count 256 X 10*3/uL (140-440); RBC 4.27 X 10*6/uL (4.10-5.20); RDW 15.4 % (11.5-14.5); WBC 8.75 X 10*3/uL (4.50-10.00)
[2021-02-23] MEDS: ASCORBIC ACID 500 MG TAB PO SCH (10:09)
[2021-02-23] MEDS: ASPIRIN 81 MG PO SCH (10:10)
[2021-02-23] MEDS: ISOSORBIDE MONONITRATE ER 30 MG TAB.ER.24H PO SCH (10:10)
[2021-02-23] MEDS: ZINC SULFATE 220 MG CAP PO SCH (10:10)
[2021-02-23] MEDS: CHOLECALCIFEROL 25 MCG (1000 IU) TABLET PO SCH (10:10)
[2021-02-23] MEDS: PANTOPRAZOLE 40 MG TABLET PO SCH (10:13)
[2021-02-23] MEDS: allopurinoL 100 MG TAB PO SCH (10:14)
[2021-02-23] MEDS: DEXAMETHASONE SOD PHOSPHATE 10 MG/ML 1 ML VIAL IVP SCH ×2 (10:14→10:41)
[2021-02-23] MEDS: MULTIVITAMINS, THERA 1 EACH TAB PO SCH (10:14)
[2021-02-23] MEDS: EZETIMIBE 10 MG TAB PO SCH (10:26)
[2021-02-23] MEDS: ENOXAPARIN 30 MG/0.3 ML SYRINGE SQ SCH (10:26)
[2021-02-23] MEDS: hydroCHLOROthiazide 12.5 MG CAP PO SCH (10:26)
[2021-02-23 11:29] LABS: C Reactive Protein 12.4 mg/dL (0.00-0.80); Magnesium 2.3 mg/dL (1.5-2.4)
[2021-02-23 11:40] LABS: African American GFR (CKD) 57.3 (60.0-200.0); Anion Gap 13.2 mmol/L (10.00-18.00); BUN/Creat Ratio 19.55 Ratio (12.00-20.00); Blood Urea Nitrogen 21.5 mg/dL (9.0-27.0); Calcium 8.2 mg/dL (8.7-10.3); Carbon Dioxide 20.8 mmol/L (20.0-27.5); Non-African American GFR(CKD) 49.4 (60.0-200.0); Potassium 4.6 mmol/L (3.5-5.5)
[2021-02-23 12:18] LABS: Glucose,Whole Blood 277 mg/dL (75-99)
[2021-02-23] MEDS ORDERED: dexAMETHasone 2 MG TAB PO SCH ×2 (12:38→12:45)
[2021-02-23 14:01] VITALS: BP 105/54; PULSE 66; RESP 18; TEMP 98.1
[2021-02-23] MEDS ORDERED: INSULIN DETEMIR (LEVEMIR) 100 UNIT/ML SYR SQ SCH (21:00)
[2021-02-24] MEDS ORDERED: dexAMETHasone 2 MG TAB PO SCH (09:00)
--- NOTE | 2021-02-24 23:02 | P.DS ---
Providers Date of admission: 02/23/21 07:31 Attending physician: Jeronimo Thorpe MD Primary care physician: Mitch Hayes [facility] Course: Final Diagnosis Generalized deconditioning and dehydration Asymptomatic bacteriuria, urine culture negative Acute Covid infection without pneumonia Chronic kidney disease, stage III most likely diabetic nephropathy Diabetes mellitus Hypertension Hyperlipidemia History of gout hypothyroidism Obesity Discharge Disposition Patient is cleared medically for discharge in stable condition. She has maintained oxygen saturation on room air. Hospital Course This is a pleasant 75 years old female with past medical history of diabetes mellitus, hypertension, hyperlipidemia, gout, hypothyroidism. 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 She presents with generalized weakness, shakiness and hyperglycemia while she is on steroids for her Covid, she also has been lightheaded while ambulating. She has had decreased oral intak e over the last few days as well. Denies chest pain, shortness of breath. Denies dysuria, urgency, frequency. The patient is saturating 97% on room air. She's been afebrile. Labs show an unremarkable CBC except for mild lymphopenia, d-dimer slightly elevated at 0.68, 1.11, 0.85. CRP 12.40, LDH within normal limits at 202, 218. AST 59, ALT 73. INR is normal at 0.9. Sodium is 131, BUN is 44 and creatinine 1.2. Baseline creatinine is 1.1-1.3. Urinalysis is suspicious for infection, coronavirus detected via PCR. EKG showing normal sinus rhythm at [address]-T changes. Vital signs on admission, pt is afebrile, heart rate 78, blood pressure 120/88, 99% on room air. VQ scan nondiagnostic with low and intermediate probability for PE, doppler of lower extremity negative for DVT. Patient treated with IV decadron 6 mg for 2 days and will finish a course of therapy with 8 days of oral decadron 6 mg PO daily. Carvedilol decreased to 12.5 mg po BID and lantus decreased to lantus 20 units HS. Repeat chest xray shoes developing infiltrate in the right mid and lower lung field, recommend follow up. Incentive spirometry supplied. 02/23/2021 Patient evaluated today resting in bed. She has been ambulating to room and to the bathroom and back. No acute events overnight and her main complete is mild fatigue. She feels ready for discharge. She remains on room air, vitals stable. Denies chest pain, shortness of breath, cough. Denies further episodes of lightheadedness. Blood glucose has stabilized. Lungs are clear, S1 S2 auscultated. Focal neurological exam is negative. PT evaluation recommends home on discharge. Repeat metabolic panel in 3 days. Follow up with PCP. Please see medication reconciliation for a list of current medications. Thank you for allowing us to participate in the care of this patient. Patient Condition at Discharge: Fair Plan - Discharge Summary Discharge Rx Participant: No New Discharge Prescriptions: New Acetaminophen Tab [Tylenol] 650 mg PO Q6HR PRN tab PRN Reason: Mild Pain Or Fever > 100.5 carvediloL [Coreg*] 12.5 mg PO AC-BID 30 Days #60 tab dexAMETHasone ORAL [Hexadrol] 6 mg PO DAILY #8 tab Continue Ascorbic Acid [Vitamin C] 1,000 mg PO BID Levothyroxine Sodium [Synthroid] 112 mcg PO DAILY Aspirin 81 mg PO DAILY Omeprazole 20 mg PO AC-BRKFST Rosuvastatin [Crestor] 10 mg PO HS Isosorbide Mononitrate ER [Imdur] 30 mg PO DAILY Indapamide [Lozol] 1.25 mg PO DAILY Insulin Lispro [humaLOG Kwikpen] See Protocol SQ AC-TID Zinc 50 mg PO DAILY Furosemide [Lasix] 20 mg PO DAILY PRN PRN Reason: Edema [place]-3 Fatty Acids/Fish Oil [Fish Oil 1,000 mg Softgel] 1 cap PO BID Multivitamins, Thera [Multivitamin (formulary)] 1 tab PO DAILY Cholecalciferol [Vitamin D3 (25 Mcg = 1000 Iu)] 25 mcg PO DAILY Ezetimibe [Zetia] 10 mg PO DAILY Allopurinol [Zyloprim] 100 mg PO DAILY Changed Insulin Glargine,Hum.rec.anlog [Lantus Solostar Pen] 20 unit SQ HS #0 Discontinued Carvedilol [Coreg] 25 mg PO BID lisinopriL [Zestril] 20 mg PO DAILY Discharge Medication List Ascorbic Acid [Vitamin C] 1,000 mg PO BID 04/25/17 [History] Aspirin 81 mg PO DAILY 04/25/17 [History] Levothyroxine Sodium [Synthroid] 112 mcg PO DAILY 04/25/17 [History] Omeprazole 20 mg PO AC-BRKFST 02/05/18 [History] Allopurinol [Zyloprim] 100 mg PO DAILY 02/20/21 [History] Cholecalciferol [Vitamin D3 (25 Mcg = 1000 Iu)] 25 mcg PO DAILY 02/20/21 [History] Ezetimibe [Zetia] 10 mg PO DAILY 02/20/21 [History] Furosemide [Lasix] 20 mg PO DAILY PRN 02/20/21 [History] Indapamide [Lozol] 1.25 mg PO DAILY 02/20/21 [History] Insulin Lispro [humaLOG Kwikpen] See Protocol SQ AC-TID 02/20/21 [History] Isosorbide Mononitrate ER [Imdur] 30 mg PO DAILY 02/20/21 [History] Multivitamins, Thera [Multivitamin (formulary)] 1 tab PO DAILY 02/20/21 [History] [place]-3 Fatty Acids/Fish Oil [Fish Oil 1,000 mg Softgel] 1 cap PO BID 02/20/21 [History] Rosuvastatin [Crestor] 10 mg PO HS 02/20/21 [History] Zinc 50 mg PO DAILY 02/20/21 [History] Acetaminophen Tab [Tylenol] 650 mg PO Q6HR PRN tab 02/23/21 [Rx] Insulin Glargine,Hum.rec.anlog [Lantus Solostar Pen] 20 unit SQ HS #0 02/23/21 [Rx] carvediloL [Coreg*] 12.5 mg PO AC-BID 30 Days #60 tab 02/23/21 [Rx] dexAMETHasone ORAL [Hexadrol] 6 mg PO DAILY #8 tab 02/23/21 [Rx] Follow up Appointment(s)/Referral(s): Mitch Hayes DO [Primary Care Provider] - 1-2 days (let the office know you were just discharged from the hospital) Ambulatory/Diagnostic Orders: Comprehensive Metabolic Panel [LAB.AMB] Time Frame: 3 Days, Location: None Selected Patient Instructions/Handouts: Coronavirus Disease 2019 (COVID-19) Activity/Diet/Wound Care/Special Instructions: Can resume lisinopril outpatient if blood pressure increases ( BP at 1pm 94/48. take BP at home before taking BP meds at night) consistent carbohydrate diet at home. drink fluids. Follow up Dr as directed. Call his office with return or worsening of symptoms that brought you here or any concerns. lab script to patient. Discharge Disposition: HOME SELF-CARE
== END 2021-02-23 15:55 | disposition home or self-care (01) | DRG 179 ==
LOC: EC 13:26 → 3SCARD 19:39 → 6NMEDSUR 02-21 11:48 → OBSVTOIN 02-23 07:31
PROVIDERS: ADMIT Internal Medicine; ATTEND Internal Medicine
DX: U07.1 COVID-19 (principal); E11.22 Type 2 diabetes mellitus with diabetic chronic kidney disease; I95.9 Hypotension, unspecified; E11.65 Type 2 diabetes mellitus with hyperglycemia; E03.9 Hypothyroidism, unspecified; D72.810 Lymphocytopenia; N18.30 Chronic kidney disease, stage 3 unspecified; Z79.4 Long term (current) use of insulin; I12.9 Hypertensive chronic kidney disease with stage 1 through stage 4 chronic kidney disease, or unspecified chronic kidney disease; E86.0 Dehydration; R82.71 Bacteriuria; E78.5 Hyperlipidemia, unspecified; E66.9 Obesity, unspecified; Z68.35 Body mass index [BMI] 35.0-35.9, adult; M10.9 Gout, unspecified; Z79.82 Long term (current) use of aspirin; Z79.890 Hormone replacement therapy; Z79.899 Other long term (current) drug therapy; Z98.51 Tubal ligation status; Z71.3 Dietary counseling and surveillance
CPT/HCPCS: 36415; 71045; 71046; 78580; 80048; 80053; 81001; 83615; 83735; 84145; 84484; 85025; 85379; 85610; 85730; 86140; 87086; 87635; 93005; 93970; 96360; 96361; 96372; 99285

== ENCOUNTER → 2021-02-24 | Outpatient (CLI) | payer MEDICARE ==
[2021-02-25 00:18] LABS: ALT 61 U/L (8-44); AST 25 U/L (13-35); African American GFR (CKD) 51.6 (60.0-200.0); Albumin 3.4 g/dL (3.8-4.9); Albumin/Globulin Ratio 1.03 (1.60-3.17); Alkaline Phosphatase 112 U/L (41-126); BUN/Creat Ratio 28.92 Ratio (12.00-20.00); Blood Urea Nitrogen 34.7 mg/dL (9.0-27.0); Carbon Dioxide 17.4 mmol/L (20.0-27.5); Chloride 102 mmol/L (96-109); Globulin 3.3 g/dL (1.6-3.3); Glucose 333 mg/dL (70-110); Non-African American GFR(CKD) 44.5 (60.0-200.0); Potassium 4.6 mmol/L (3.5-5.5); Sodium 132 mmol/L (135-145); Total Bilirubin <0.20 mg/dL (0.30-1.20); Total Protein 6.7 g/dL (6.2-8.2)
== END | disposition home or self-care (01) ==
LOC: LABWHC1 15:49
PROVIDERS: ATTEND Nurse Practitioner Family
DX: U07.1 COVID-19 (principal)
CPT/HCPCS: 36415; 80053

== ENCOUNTER → 2021-03-29 | Outpatient (CLI) | payer MEDICARE ==
--- NOTE | 2021-03-29 18:31 | BD ---
EXAMINATION TYPE: Axial Bone Density DATE OF EXAM: 03/29/2021 COMPARISON: NONE CLINICAL HISTORY: disorder of continuity of bone Height: 5'6 Weight: 226 FRAX RISK QUESTIONS: History of Fracture in Adulthood: y Secondary Osteoporosis: RISK FACTORS HISTORY OF: Family History of Osteoporosis: y Diet low in dairy products/other sources of calcium: y Postmenopausal woman: y MEDICATIONS: Thyroid Medications: Which medication: Synthroid How Lon-30 years Additional Medications: cholesterol pressure, insulin type 2 diabetes Additional History: EXAM MEASUREMENTS: Bone mineral densitometry was performed using the [employer]. Bone mineral density as measured about the Lumbar spine is: ----- L1-L4(G/cm2): 1.198 T Score Values are as follows: ----- L2: -0.5 ----- L3: 0.5 ----- L4: 0.7 ----- L1-L4:0.1 Bone mineral density about the R hip (g/cm2): 0.963 Bone mineral density about the L hip (g/cm2): 0.945 T Score values are as follows: -----R Neck: -0.5 -----L Neck: -0.7 -----R Total: 0.2 -----L Total: -0.2 IMPRESSION: Normal (Values between +1 and -1 indicate normal bone mass). Consider repeating this study in 5 year s or sooner if there is some new clinical indication. NOTE: T-SCORE=SD OF THE YOUNG ADULT MEAN.
--- NOTE | 2021-03-31 10:54 | MM ---
Reason for exam: screening (asymptomatic). Last mammogram was performed 2 years and 3 months ago. History: Patient is postmenopausal. Took hormonal contraceptives for 1 year beginning at age 21. Physical Findings: A clinical breast exam by your physician is recommended on an annual basis and results should be correlated with mammographic findings. MG 3D Screening Mammo W/Cad Bilateral CC and MLO view(s) were taken. Prior study comparison: January 09, 2019, bilateral MG 3d screening mammo w/cad. November 26, 2015, bilateral MG 3d screening mammo w/cad. There are scattered fibroglandular densities. No significant changes when compared with prior studies. ASSESSMENT: Benign, BI-RAD 2 RECOMMENDATION: Routine screening mammogram of both breasts in 1 year.
== END | disposition home or self-care (01) ==
LOC: RADMAMWWP 11:52
PROVIDERS: ATTEND Family Medicine
DX: Z12.31 Encounter for screening mammogram for malignant neoplasm of breast (principal); M84.80 Other disorders of continuity of bone, unspecified site
CPT/HCPCS: 77063; 77067; 77080

== ENCOUNTER → 2021-09-19 | Outpatient (CLI) | payer MEDICARE ==
[2021-09-19 19:19] LABS: T4, Free (Free Thyroxine) 1.65 ng/dL (0.800-1.800)
== END | disposition home or self-care (01) ==
LOC: LABWHC1 13:55
PROVIDERS: ATTEND Internal Medicine Endocrinology, Diabetes & Metabolism
DX: E11.21 Type 2 diabetes mellitus with diabetic nephropathy (principal); E11.65 Type 2 diabetes mellitus with hyperglycemia; E55.9 Vitamin D deficiency, unspecified; E79.0 Hyperuricemia without signs of inflammatory arthritis and tophaceous disease
CPT/HCPCS: 36415; 84439; 84443; 84481

== ENCOUNTER 2021-11-23 11:06 | Observation (INO) | payer MEDICARE ==
[2021-11-23] MEDS ORDERED: SODIUM CHLORIDE 0.9% 1,000 ML IV STA (11:28)
[2021-11-23] MEDS ORDERED: SODIUM CHLORIDE 0.9% 500 ML 500 ML IV STA (11:28)
[2021-11-23 11:49] LABS: Partial Thromboplastin Time 26.9 sec (22.0-30.0); Prothrombin Time 10.7 sec (9.0-12.0)
[2021-11-23 11:52] LABS: Albumin 3.8 g/dL (3.5-5.0); Calcium 8.2 mg/dL (8.4-10.2); Magnesium 1.8 mg/dL (1.6-2.3); Potassium 3.7 mmol/L (3.5-5.1); Total Bilirubin 0.4 mg/dL (0.2-1.3)
[2021-11-23 11:56] LABS: Basophils % (A) 1 %; Eosinophils % (A) 0 %; HCT 33.8 % (34.0-46.0); HGB 11.4 gm/dL (11.4-16.0); Lymphocytes # (A) 1.6 k/uL (1.0-4.8); Lymphocytes % (A) 44 %; MCH 30.1 pg (25.0-35.0); MCHC 33.7 g/dL (31.0-37.0); MCV 89.4 fL (80.0-100.0); Mean Platelet Volume 7.9; Monocytes # (A) 0.3 k/uL (0-1.0); Monocytes % (A) 9 %; Neutrophils # (A) 1.5 k/uL (1.3-7.7); Neutrophils % (A) 43 %; Platelet Count 216 k/uL (150-450); RBC 3.78 m/uL (3.80-5.40); RDW 14.2 % (11.5-15.5); WBC 3.6 k/uL (3.8-10.6)
--- NOTE | 2021-11-23 12:17 | XR ---
EXAMINATION TYPE: XR chest 2V DATE OF EXAM: 11/23/2021 12:13 PM COMPARISON: Chest radiographs from 02/23/2021. TECHNIQUE: XR chest 2V Frontal and lateral views of the chest. CLINICAL INDICATION:Female, 75 years old with history of syncope; FINDINGS: Lungs/Pleura: There is no evidence of pleural effusion, focal consolidation, or pneumothorax. Improv ed aeration of the right lung from prior examination. Pulmonary vascularity: Unremarkable. Heart/mediastinum: Cardiomediastinal silhouette is prominent in size. Musculoskeletal: No acute osseous pathology. IMPRESSION: No acute cardiopulmonary disease/process.
--- NOTE | 2021-11-23 13:14 | ED ---
General Adult HPI - General Chief complaint: Syncope Stated complaint: Syncope,flu symptoms Time Seen by Provider: 11/23/21 11:11 Source: patient, RN notes reviewed Mode of arrival: ambulatory Limitations: no limitations - History of Present Illness Initial comments: This a 75-year-old female presents emergency from chief complaint of syncopal episode patient brought to the emergency Department via EMS. Patient states she has not felt well for several days. She states that cough congestion decreased appetite states she's not eating or drinking much over the last day she felt nauseated today states that she walked short distance wants it down does not remember anything after that. She states that she felt very sick to her stomach felt skin pass out. Patient brought to emergency Department which he feels slightly improved but very weak denies any chest pain no current blurred vision or any focal weakness. - Related Data Home Medications Medication Instructions Recorded Confirmed Ascorbic Acid [Vitamin C] 1,000 mg PO BID 04/25/17 02/20/21 Aspirin 81 mg PO DAILY 04/25/17 02/20/21 Levothyroxine Sodium [Synthroid] 112 mcg PO DAILY 04/25/17 02/20/21 Omeprazole 20 mg PO AC-BRKFST 02/05/18 02/20/21 Cholecalciferol [Vitamin D3 (25 25 mcg PO DAILY 02/20/21 02/20/21 Mcg = 1000 Iu)] Ezetimibe [Zetia] 10 mg PO DAILY 02/20/21 02/20/21 Furosemide [Lasix] 20 mg PO DAILY PRN 02/20/21 02/20/21 Indapamide [Lozol] 1.25 mg PO DAILY 02/20/21 02/20/21 Insulin Lispro [humaLOG Kwikpen] See Protocol SQ AC-TID 02/20/21 02/20/21 Isosorbide Mononitrate ER [Imdur] 30 mg PO DAILY 02/20/21 02/20/21 Multivitamins, Thera [Multivitamin 1 tab PO DAILY 02/20/21 02/20/21 (formulary)] [place]-3 Fatty Acids/Fish Oil [Fish 1 cap PO BID 02/20/21 02/20/21 Oil 1,000 mg Softgel] Rosuvastatin [Crestor] 10 mg PO HS 02/20/21 02/20/21 Zinc 50 mg PO DAILY 02/20/21 02/20/21 allopurinoL [Zyloprim] 100 mg PO DAILY 02/20/21 02/20/21 Previous Rx's Medication Instructions Recorded Acetaminophen Tab [Tylenol] 650 mg PO Q6HR PRN tab 02/23/21 Insulin Glargine,Hum.rec.anlog 20 unit SQ HS #0 02/23/21 [Lantus Solostar Pen] carvediloL [Coreg*] 12.5 mg PO AC-BID 30 Days #60 tab 02/23/21 dexAMETHasone ORAL [Hexadrol] 6 mg PO DAILY #8 tab 02/23/21 Allergies Allergy/AdvReac Type Severity Reaction Status Date / Time No Known Allergies Allergy Verified 11/23/21 11:21 Review of Systems ROS Statement: Those systems with pertinent positive or pertinent negative responses have been documented in the HPI. ROS Other: All systems not noted in ROS Statement are negative. 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, UTI years ago, hypothyroid, occasional back pain History of Any Multi-Drug Resistant Organisms: None Reported Past Surgical History: Tubal Ligation Additional Past Surgical History / Comment(s): EGD, colonoscopy, endocapsule Past Anesthesia/Blood Transfusion Reactions: No Reported Reaction Past Psychological History: No Psychological Hx Reported Smoking Status: Never smoker Past Alcohol Use History: None Reported Past Drug Use History: None Reported - Past Family History Father Family Medical History: Coronary Artery Disease (CAD) Mother Family Medical History: Coronary Artery Disease (CAD) Additional Family Medical History / Comment(s): Mother had 4 vessel CABG General Exam Limitations: no limitations General appearance: alert, in no apparent distress Head exam: Present: atraumatic, normocephalic, normal inspection Eye exam: Present: normal appearance, PERRL, EOMI. Absent: scleral icterus, conjunctival injection, periorbital swelling ENT exam: Present: normal exam, normal oropharynx, mucous membranes moist Neck exam: Present: normal inspection, full ROM. Absent: tenderness, meningismus, lymphadenopathy Respiratory exam: Present: normal lung sounds bilaterally. Absent: respiratory distress, wheezes, rales, rhonchi, stridor Cardiovascular Exam: Present: normal rhythm, bradycardia, normal heart sounds. Absent: systolic murmur, diastolic murmur, rubs, gallop, clicks GI/Abdominal exam: Present: soft, normal bowel sounds. Absent: distended, tenderness, guarding, rebound, rigid Course Vital Signs 11/23/21 11/23/21 11/23/21 11:15 12:20 12:30 Temperature 98 F Pulse Rate 48 L 50 L Pulse Rate [ 52 L Pulse Oximetery ] Respiratory 18 16 17 Rate Blood Pressure 118/55 146/69 Blood Pressure [Sitting] Blood Pressure [Standing] Blood Pressure 136/65 [Supine] O2 Sat by Pulse 98 98 100 Oximetry 11/23/21 11/23/21 12:32 12:36 Temperature Pulse Rate Pulse Rate [ 56 L 57 L Pulse Oximetery ] Respiratory 18 18 Rate Blood Pressure Blood Pressure 147/80 [Sitting] Blood Pressure 138/78 [Standing] Blood Pressure [Supine] O2 Sat by Pulse 99 96 Oximetry Medical Decision Making - Medical Decision Making 75-year-old presented from it for syncopal episode. Patient found to be acutely dehydrated with acute kidney injury creatinine 2.3 from baseline less than 1. Patient was given fluid bolus. Patient will be admitted for dehydration, syncopal episode, acute kidney injury patient is influenza a positive - Lab Data Result diagrams: 11/23/21 11:30 11/23/21 11:30 Lab Results 11/23/21 11/23/21 11/23/21 Range/Units 11:30 11:30 11:30 WBC 3.6 L (3.8-10.6) k/uL RBC 3.78 L (3.80-5.40) m/uL Hgb 11.4 (11.4-16.0) gm/dL Hct 33.8 L (34.0-46.0) % MCV 89.4 (80.0-100.0) fL MCH 30.1 (25.0-35.0) pg MCHC 33.7 (31.0-37.0) g/dL RDW 14.2 (11.5-15.5) % Plt Count 216 (150-450) k/uL MPV 7.9 Neutrophils % 43 % Lymphocytes % 44 % Monocytes % 9 % Eosinophils % 0 % Basophils % 1 % Neutrophils # 1.5 (1.3-7.7) k/uL Lymphocytes # 1.6 (1.0-4.8) k/uL Monocytes # 0.3 (0-1.0) k/uL Eosinophils # 0.0 (0-0.7) k/uL Basophils # 0.0 (0-0.2) k/uL PT 10.7 (9.0-12.0) sec INR 1.0 (<1.2) APTT 26.9 (22.0-30.0) sec Sodium 139 (137-145) mmol/L Potassium 3.7 (3.5-5.1) mmol/L Chloride 102 (98-107) mmol/L Carbon Dioxide 24 (22-30) mmol/L Anion Gap 13 mmol/L BUN 41 H (7-17) mg/dL Creatinine 2.30 H (0.52-1.04) mg/dL Est GFR (CKD-EPI)AfAm 23 (>60 ml/min/1.73 sqM) Est GFR (CKD-EPI)NonAf 20 (>60 ml/min/1.73 sqM) Glucose 94 (74-99) mg/dL Calcium 8.2 L (8.4-10.2) mg/dL Magnesium 1.8 (1.6-2.3) mg/dL Total Bilirubin 0.4 (0.2-1.3) mg/dL AST 42 H (14-36) U/L ALT 34 (4-34) U/L Alkaline Phosphatase 71 (38-126) U/L Troponin I (0.000-0.034) ng/mL Total Protein 6.0 L (6.3-8.2) g/dL Albumin 3.8 (3.5-5.0) g/dL Coronavirus (PCR) (Not Detectd) Influenza Type A RNA (Not Detectd) Influenza Type B (PCR) (Not Detectd) 11/23/21 11/23/21 11/23/21 Range/Units 11:30 11:42 11:42 WBC (3.8-10.6) k/uL RBC (3.80-5.40) m/uL Hgb (11.4-16.0) gm/dL Hct (34.0-46.0) % MCV (80.0-100.0) fL MCH (25.0-35.0) pg MCHC (31.0-37.0) g/dL RDW (11.5-15.5) % Plt Count (150-450) k/uL MPV Neutrophils % % Lymphocytes % % Monocytes % % Eosinophils % % Basophils % % Neutrophils # (1.3-7.7) k/uL Lymphocytes # (1.0-4.8) k/uL Monocytes # (0-1.0) k/uL Eosinophils # (0-0.7) k/uL Basophils # (0-0.2) k/uL PT (9.0-12.0) sec INR (<1.2) APTT (22.0-30.0) sec Sodium (137-145) mmol/L Potassium (3.5-5.1) mmol/L Chloride (98-107) mmol/L Carbon Dioxide (22-30) mmol/L Anion Gap mmol/L BUN (7-17) mg/dL Creatinine (0.52-1.04) mg/dL Est GFR (CKD-EPI)AfAm (>60 ml/min/1.73 sqM) Est GFR (CKD-EPI)NonAf (>60 ml/min/1.73 sqM) Glucose (74-99) mg/dL Calcium (8.4-10.2) mg/dL Magnesium (1.6-2.3) mg/dL Total Bilirubin (0.2-1.3) mg/dL AST (14-36) U/L ALT (4-34) U/L Alkaline Phosphatase (38-126) U/L Troponin I <0.012 (0.000-0.034) ng/mL Total Protein (6.3-8.2) g/dL Albumin (3.5-5.0) g/dL Coronavirus (PCR) Not Detected (Not Detectd) Influenza Type A RNA Detected H (Not Detectd) Influenza Type B (PCR) Not Detected (Not Detectd) Disposition Clinical Impression: Influenza A, Dehydration, Syncope, Acute kidney injury Disposition: ADMITTED IP TO THIS HOSP Condition: Fair Referrals: Mitch Hayes DO [Primary Care Provider] - 1-2 days Time of Disposition: 13:14
[2021-11-23] MEDS ORDERED: NALOXONE 0.4 MG/ML 1 ML VIAL IV PRN (13:15)
[2021-11-23] MEDS ORDERED: ACETAMINOPHEN TAB 325 MG TAB PO PRN (13:15)
--- NOTE | 2021-11-23 13:55 | P.HPIM ---
History of Present Illness H&P Date: 11/23/21 Chief Complaint: Syncope Patient is a 75-year-old female with a past medical history of diabetes, hypertension, hyperlipidemia, gout, hypothyroidism who presents to the ED with an episode of syncope. Patient states that she was sitting on a recliner and told her grandchild to get her something to vomit in because she felt nauseous. The next thing she remembers is that her granddaughter is trying to wake her up. The granddaughter then told her she passed out and had called EMS. When EMS arrived they tried to make the patient stand up however she felt dizzy. She was then brought into the ED for further evaluation. Patient denied any urinary incontinence, confusion or tongue soreness. She also denied any chest pain or diaphoresis. Patient was found to have influenza A. Patient admitted that for the past 2 days she has been having a cough and a headache. She states that her cough is improving. Currently she said that she is feeling much better. In the ED patient was found to have a creatinine of 2.2. Her baseline creatinine is around 1.3. Patient was referred for admission for an acute kidney injury. Review of Systems 10 ROS reviewed and are negative except as noted in HPI 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, UTI years ago, hypothyroid, occasional back pain History of Any Multi-Drug Resistant Organisms: None Reported Past Surgical History: Tubal Ligation Additional Past Surgical History / Comment(s): EGD, colonoscopy, endocapsule Past Anesthesia/Blood Transfusion Reactions: No Reported Reaction Past Psychological History: No Psychological Hx Reported Smoking Status: Never smoker Past Alcohol Use History: None Reported Past Drug Use History: None Reported - Past Family History Father Family Medical History: Coronary Artery Disease (CAD) Mother Family Medical History: Coronary Artery Disease (CAD) Additional Family Medical History / Comment(s): Mother had 4 vessel CABG Medications and Allergies Home Medications Medication Instructions Recorded Confirmed Type Ascorbic Acid [Vitamin C] 1,000 mg PO BID 04/25/17 02/20/21 History Aspirin 81 mg PO DAILY 04/25/17 02/20/21 History Levothyroxine Sodium [Synthroid] 112 mcg PO DAILY 04/25/17 02/20/21 History Omeprazole 20 mg PO AC-BRKFST 02/05/18 02/20/21 History Cholecalciferol [Vitamin D3 (25 25 mcg PO DAILY 02/20/21 02/20/21 History Mcg = 1000 Iu)] Ezetimibe [Zetia] 10 mg PO DAILY 02/20/21 02/20/21 History Furosemide [Lasix] 20 mg PO DAILY PRN 02/20/21 02/20/21 History Indapamide [Lozol] 1.25 mg PO DAILY 02/20/21 02/20/21 History Insulin Lispro [humaLOG Kwikpen] See Protocol SQ AC-TID 02/20/21 02/20/21 History Isosorbide Mononitrate ER [Imdur] 30 mg PO DAILY 02/20/21 02/20/21 History Multivitamins, Thera [Multivitamin 1 tab PO DAILY 02/20/21 02/20/21 History (formulary)] [place]-3 Fatty Acids/Fish Oil [Fish 1 cap PO BID 02/20/21 02/20/21 History Oil 1,000 mg Softgel] Rosuvastatin [Crestor] 10 mg PO HS 02/20/21 02/20/21 History Zinc 50 mg PO DAILY 02/20/21 02/20/21 History allopurinoL [Zyloprim] 100 mg PO DAILY 02/20/21 02/20/21 History Acetaminophen Tab [Tylenol] 650 mg PO Q6HR PRN tab 02/23/21 Rx Insulin Glargine,Hum.rec.anlog 20 unit SQ HS #0 02/23/21 02/20/21 Rx [Lantus Solostar Pen] carvediloL [Coreg*] 12.5 mg PO AC-BID 30 Days #60 tab 02/23/21 Rx dexAMETHasone ORAL [Hexadrol] 6 mg PO DAILY #8 tab 02/23/21 Rx Allergies Allergy/AdvReac Type Severity Reaction Status Date / Time No Known Allergies Allergy Verified 11/23/21 11:21 Physical Exam Osteopathic Statement: *. No significant issues noted on an osteopathic structural exam other than those noted in the History and Physical/Consult. Vitals: Vital Signs Temp Pulse Pulse Resp BP BP BP 11/23/21 13:45 53 L 16 133/61 11/23/21 12:36 57 L 18 138/78 11/23/21 12:32 56 L 18 147/80 11/23/21 12:30 52 L 17 11/23/21 12:20 50 L 16 146/69 11/23/21 11:15 98 F 48 L 18 118/55 BP Pulse Ox 11/23/21 13:45 97 11/23/21 12:36 96 11/23/21 12:32 99 11/23/21 12:30 136/65 100 11/23/21 12:20 98 11/23/21 11:15 98 Intake and Output 11/22/21 11/23/21 11/23/21 22:59 06:59 14:59 Other: Weight 103.419 kg General: [Alert and oriented, well nourished, no acute distress]. Eye: [PERRL, EOMI, normal conjunctiva]. HENT: [Normocephalic, clear tympanic membranes, normal hearing, dry oral mucosa, no scleral icterus, no sinus tenderness]. Neck: [Supple, non-tender, no carotid bruits, no JVD, no lymphadenopathy]. Lungs: [Clear to auscultation and percussion, non-labored respiration]. Heart: [Normal rate, regular rhythm, no murmur, gallop or edema]. Abdomen: [Soft, non-tender, non-distended, normal bowel sounds, no masses]. Musculoskeletal: [Normal range of motion and strength, no tenderness or swelling]. Skin: [Skin is warm, dry and pink, no rashes or lesions]. Neurologic: [Awake, alert, and oriented X3, CN II-XII intact]. Psychiatric: [Cooperative, appropriate mood and affect]. Results CBC & Chem 7: 11/23/21 11:30 11/23/21 11:30 Labs: Abnormal Lab Results - Last 24 Hours (Table) 11/23/21 11/23/21 11/23/21 Range/Units 11:30 11:30 11:42 WBC 3.6 L (3.8-10.6) k/uL RBC 3.78 L (3.80-5.40) m/uL Hct 33.8 L (34.0-46.0) % BUN 41 H (7-17) mg/dL Creatinine 2.30 H (0.52-1.04) mg/dL Calcium 8.2 L (8.4-10.2) mg/dL AST 42 H (14-36) U/L Total Protein 6.0 L (6.3-8.2) g/dL Influenza Type A RNA Detected H (Not Detectd) Assessment and Plan Assessment: Syncope secondary to orthostatic hypotension from dehydration Acute kidney injury Resume fluids trend BMP Influenza A We'll start the patient on Tamiflu Diabetes mellitus Resume insulin regimen Hyperlipidemia Resume zetia Gout Resume allopurinol Hypothyroidism Resume the levothyroxine CODE STATUS:full code DVT prophylaxis: Subcu heparin Discussed with: Patient, ER, rn Anticipated length of stay < than [address]: home A total of 50 minutes was spent on the care of this complex patient more than 50% of the time was spent in counseling and care coordination.
[2021-11-23] MEDS ORDERED: DEXTROSE 50% SYRINGE 50 ML IVP PRN ×2 (13:57)
[2021-11-23 14:59] LABS: Glucose,Whole Blood 124 mg/dL (70-110)
[2021-11-23] MEDS: SODIUM CHLORIDE 0.9% 1,000 ML IV SCH (15:00)
[2021-11-23] MEDS: OSELTAMIVIR 60 MG/10 ML ORAL SYRINGE PO SCH (15:46)
[2021-11-23 17:51] LABS: Glucose,Whole Blood 94 mg/dL (70-110)
[2021-11-23] MEDS: INSULIN ASPART (NovoLOG) 100 UNIT/ML VIAL SQ SCH ×3 (18:05→20:38)
[2021-11-23 20:12] LABS: Glucose,Whole Blood 119 mg/dL (70-110)
[2021-11-23] MEDS: INSULIN DETEMIR (LEVEMIR) 100 UNIT/ML SYR SQ SCH (20:51)
[2021-11-23] MEDS: HEPARIN SODIUM,PORCINE/PF 5,000 UNIT/0.5 ML SYRINGE SQ SCH (20:51)
[2021-11-24] MEDS: SODIUM CHLORIDE 0.9% 1,000 ML IV SCH (01:57)
[2021-11-24 06:12] LABS: African American GFR (CKD) 52 (>60 ml/min/1.73 sqM); Anion Gap 8 mmol/L; Blood Urea Nitrogen 27 mg/dL (7-17); Calcium 8.1 mg/dL (8.4-10.2); Carbon Dioxide 22 mmol/L (22-30); Chloride 110 mmol/L (98-107); Glucose 105 mg/dL (74-99); Non-African American GFR(CKD) 45 (>60 ml/min/1.73 sqM); Sodium 140 mmol/L (137-145)
[2021-11-24 07:03] LABS: Glucose,Whole Blood 99 mg/dL (70-110)
[2021-11-24 08:01] VITALS: BP 129/67; PULSE 56; RESP 16; TEMP 98.3
[2021-11-24] MEDS: INSULIN DETEMIR (LEVEMIR) 100 UNIT/ML SYR SQ SCH (08:59)
[2021-11-24] MEDS: INSULIN ASPART (NovoLOG) 100 UNIT/ML VIAL SQ SCH ×4 (08:59→12:02)
[2021-11-24] MEDS ORDERED: carvediloL 12.5 MG TAB PO SCH (09:00)
[2021-11-24] MEDS ORDERED: allopurinoL 100 MG TAB PO SCH (09:00)
[2021-11-24] MEDS ORDERED: hydroCHLOROthiazide 12.5 MG CAP PO SCH (09:00)
[2021-11-24] MEDS ORDERED: ZINC SULFATE 220 MG CAP PO SCH (09:00)
[2021-11-24] MEDS ORDERED: ASCORBIC ACID 500 MG TAB PO SCH (09:00)
[2021-11-24] MEDS ORDERED: MULTIVITAMINS, THERA 1 EACH TAB PO SCH (09:00)
[2021-11-24] MEDS ORDERED: ASPIRIN 81 MG PO SCH (09:00)
[2021-11-24] MEDS ORDERED: ISOSORBIDE MONONITRATE ER 30 MG TAB.ER.24H PO SCH (09:00)
[2021-11-24] MEDS ORDERED: NON FORMULARY DRUG (Omega-3 Fatty Acids/Fish Oil [Fish Oil 1,000 Mg Softgel] 1 EACH Capsul PO SCH (09:00)
[2021-11-24] MEDS ORDERED: CHOLECALCIFEROL 125 MCG (5000 IU) TABLET PO SCH (09:00)
[2021-11-24] MEDS ORDERED: EZETIMIBE 10 MG TAB PO SCH (09:00)
--- NOTE | 2021-11-24 09:00 | P.DS ---
Providers Date of admission: 11/23/21 13:12 Expected date of discharge: 11/24/21 Attending physician: Sd Pruett MD Primary care physician: Mitch Hayes [facility] Course: Discharge Diagnosis: Syncope Dehydration Acute kidney injury Influenza A Diabetes mellitus Hyperlipidemia Gout Hypothyroidism Hospital Course: Patient is a 75-year-old female with a past medical history of diabetes, hypertension, hyperlipidemia, gout, hypothyroidism who presents to the ED with an episode of syncope. Patient was found to have influenza A and she is also found to have renal failure likely due to dehydration. Patient was referred for admission for her acute kidney injury. Patient was given fluids overnight. The following day her renal function improved. Patient is also feeling better and was looking for to going home. I told the patient to hold off on the lisinopril for a week. Patient will be also be discharged on Tamiflu to complete her antiviral course. Patient seen and examined at bedside on 11/24/2021 Vital signs reviewed and stable. General: [non toxic], [no distress], [appears at stated age] Derm: [warm], [dry] Head: [atraumatic], [normocephalic], [symmetric] Eyes: [EOMI], [no lid lag], [anicteric sclera] Mouth: [no lip lesion], [mucus membranes moist] Cardiovascular: [S1S2 reg], [no murmur], [positive posterior tibial pulse cindi ateral], Lungs: [CTA bilateral], [no rhonchi, no rales] , [no accessory muscle use] Abdominal: [soft], [ nontender to palpation], [no guarding], [no appreciable organomegaly] Ext: [no gross muscle atrophy], [no edema], [no contractures] Neuro: [ CN II-XI grossly intact], [no focal neuro deficits] Psych: [Alert], [oriented], [appropriate affect] A total of [33] minutes of time were spent preparing this complex discharge summary . Patient Condition at Discharge: Fair Plan - Discharge Summary Discharge Rx Participant: No New Discharge Prescriptions: New Oseltamivir 6Mg/ml Oral Susp [Tamiflu] 30 mg PO DAILY 3 Days #3 each Continue Ascorbic Acid [Vitamin C] 1,000 mg PO BID Levothyroxine Sodium [Synthroid] 112 mcg PO DAILY@0600 Aspirin 81 mg PO DAILY Omeprazole 20 mg PO DAILY@0600 Isosorbide Mononitrate ER [Imdur] 30 mg PO DAILY Indapamide [Lozol] 1.25 mg PO DAILY Zinc 50 mg PO DAILY carvediloL [Coreg] 25 mg PO BID [place]-3 Fatty Acids/Fish Oil [Fish Oil 1,000 mg Softgel] 1 cap PO TID Multivitamins, Thera [Multivitamin (formulary)] 1 tab PO DAILY Ezetimibe [Zetia] 10 mg PO DAILY allopurinoL [Zyloprim] 100 mg PO DAILY Insulin Aspart [NovoLOG Flexpen] 5 units SQ AC-BRKFST Cholecalciferol [Vitamin D3 (125 Mcg = 5000 Iu)] 125 mcg PO DAILY Levothyroxine Sodium [Synthroid] 50 mcg PO DOHERTY@0600 Insulin Glargine,Hum.rec.anlog [Lantus Solostar Pen] 30 unit SQ HS Discontinued lisinopriL [Zestril] 40 mg PO HS Discharge Medication List Ascorbic Acid [Vitamin C] 1,000 mg PO BID 04/25/17 [History] Aspirin 81 mg PO DAILY 04/25/17 [History] Levothyroxine Sodium [Synthroid] 112 mcg PO DAILY@0600 04/25/17 [History] Omeprazole 20 mg PO DAILY@0600 02/05/18 [History] Ezetimibe [Zetia] 10 mg PO DAILY 02/20/21 [History] Indapamide [Lozol] 1.25 mg PO DAILY 02/20/21 [History] Isosorbide Mononitrate ER [Imdur] 30 mg PO DAILY 02/20/21 [History] Multivitamins, Thera [Multivitamin (formulary)] 1 tab PO DAILY 02/20/21 [History] [place]-3 Fatty Acids/Fish Oil [Fish Oil 1,000 mg Softgel] 1 cap PO TID 02/20/21 [History] Zinc 50 mg PO DAILY 02/20/21 [History] allopurinoL [Zyloprim] 100 mg PO DAILY 02/20/21 [History] Cholecalciferol [Vitamin D3 (125 Mcg = 5000 Iu)] 125 mcg PO DAILY 11/23/21 [History] Insulin Aspart [NovoLOG Flexpen] 5 units SQ AC-BRKFST 11/23/21 [History] Insulin Glargine,Hum.rec.anlog [Lantus Solostar Pen] 30 unit SQ HS 11/23/21 [History] Levothyroxine Sodium [Synthroid] 50 mcg PO DOHERTY@0600 11/23/21 [History] carvediloL [Coreg] 25 mg PO BID 11/23/21 [History] Oseltamivir 6Mg/ml Oral Susp [Tamiflu] 30 mg PO DAILY 3 Days #3 each 11/24/21 [Rx] Follow up Appointment(s)/Referral(s): Mitch Hayes DO [Primary Care Provider] - 1-2 days Discharge Disposition: HOME SELF-CARE
[2021-11-24] MEDS: HEPARIN SODIUM,PORCINE/PF 5,000 UNIT/0.5 ML SYRINGE SQ SCH (09:06)
[2021-11-24] MEDS: OSELTAMIVIR 60 MG/10 ML ORAL SYRINGE PO SCH (09:13)
[2021-11-24] MEDS ORDERED: NON FORMULARY DRUG (Lisinopril [Zestril] 40 MG Tablet) PO SCH (21:00)
[2021-11-24] MEDS ORDERED: OSELTAMIVIR 60 MG/10 ML ORAL SYRINGE PO SCH (21:00)
[2021-11-25] MEDS ORDERED: LEVOTHYROXINE 112 MCG TAB PO SCH (06:00)
[2021-11-25] MEDS ORDERED: PANTOPRAZOLE 40 MG TABLET PO SCH (06:00)
[2021-11-27] MEDS ORDERED: LEVOTHYROXINE 50 MCG TAB PO SCH (06:00)
== END 2021-11-24 12:15 | disposition home or self-care (01) ==
LOC: EC 11:06 → 6NMEDSUR 13:12
PROVIDERS: ADMIT Internal Medicine; ATTEND Internal Medicine
DX: R55 Syncope and collapse (principal); E86.0 Dehydration; N17.9 Acute kidney failure, unspecified; J10.1 Influenza due to other identified influenza virus with other respiratory manifestations; E11.9 Type 2 diabetes mellitus without complications; E78.5 Hyperlipidemia, unspecified; M10.9 Gout, unspecified; E03.9 Hypothyroidism, unspecified; I10 Essential (primary) hypertension; G47.33 Obstructive sleep apnea (adult) (pediatric); K21.9 Gastro-esophageal reflux disease without esophagitis; Z20.822 Contact with and (suspected) exposure to COVID-19; Z79.890 Hormone replacement therapy; Z79.82 Long term (current) use of aspirin; Z79.899 Other long term (current) drug therapy; Z79.4 Long term (current) use of insulin; Z82.49 Family history of ischemic heart disease and other diseases of the circulatory system
CPT/HCPCS: 96372; 96360; 99285; 36415; 93005; 80053; 80048; 83735; 84484; 85025; 85610; 85730; 87502; 87635; 71046; G0378 ×2

== ENCOUNTER 2021-11-27 12:47 | Observation (INO) | payer MEDICARE ==
--- NOTE | 2021-11-27 13:13 | ED ---
General Adult HPI - General Chief complaint: Weakness Stated complaint: confusion Time Seen by Provider: 11/27/21 12:57 Source: patient Mode of arrival: wheelchair Limitations: no limitations - History of Present Illness Initial comments: Dictation was produced using [employer] dictation software. please excuse any grammatical, word or spelling errors. Chief Complaint: 76-year-old female presents emergency department for altered mental status History of Present Illness: Patient is a 76-year-old female she presents to the emergency department for acute altered mental status. Patient brought in by her grandson who lives with her. She was last normal last night. Patient's grandson who provides history present illness states that he received a call from his grandmother earlier today. She states that she did not feel very well. When grandson got there she had been very confused. She has had repetitive questioning. She is unable to identify certain people. As a numbness and paresthesias to her arms or legs. Chart review shows that she was recently admitted for influenza A and acute kidney injury. Patient does have a history of thyroid disease. She does not remember being in the hospital recently. The ROS documented in this emergency department record has been reviewed and confirmed by me. Those systems with pertinent positive or negative responses have been documented in the HPI. All other systems are other negative and/or noncontributory. PHYSICAL EXAM: General Impression: Alert and oriented x3, not in acute distress HEENT: Normocephalic atraumatic, extra-ocular movements intact, pupils equal and reactive to light bilaterally, mucous membranes moist. Cardiovascular: Heart regular rate and rhythm Chest: Able to complete full sentences, no retractions, no tachypnea Abdomen: abdomen soft, non-tender, non-distended, no organomegaly Musculoskeletal: Pulses present and equal in all extremities, no peripheral edema Motor: no focal deficits noted Neurological: CN II-XII grossly intact, no focal motor or sensory deficits noted, nih 3 Skin: Intact with no visualized rashes Psych: Normal affect and mood ED course: 76-year-old female presents emergency department for altered mental status. Last known normal was sometime last night. Patient woke up with symptoms. Patient given an NIH score of 3. Code stroke not patient due to low NIH score. Clinically risk outweighed the benefits for any aggressive interventions at this time. Nonetheless altered mental status workup is pursued. EKG interpretation: Ventricular rate 55, sinus bradycardia,. Interval 136, rest 91, QTC 419. No NM prolongation, no QTC prolongation, no ST or T-wave changes noted. EKG compared to 11/23/2021 showing no changes. Overall, this EKG is unremarkable Computed tomography scan the brain shows no intracranial abnormalities. CT angiography of the head and neck shows plaque formation at the carotid bifurcations with stenosis. No significant intracranial angiographic abnormality. She has a stable size meningioma at the right temporal lobe compared to computed tomography scan from 2019. Laboratory evaluation obtained. CBC, coag panel, metabolic panel is unremarkable. Urinalysis shows 13 white blood cells in the urine suggesting urinary tract infection. Patient reevaluated at bedside at 3:30 PM found to be stable medical condition however she is still encephalopathic. Patient given aspirin for concerns of possible CVA versus TIA. Patient be admitted to [facility] with consultation to neurology. - Related Data Home Medications Medication Instructions Recorded Confirmed Ascorbic Acid [Vitamin C] 1,000 mg PO BID 04/25/17 11/23/21 Aspirin 81 mg PO DAILY 04/25/17 11/23/21 Levothyroxine Sodium [Synthroid] 112 mcg PO DAILY@0600 04/25/17 11/23/21 Omeprazole 20 mg PO DAILY@0600 02/05/18 11/23/21 Ezetimibe [Zetia] 10 mg PO DAILY 02/20/21 11/23/21 Indapamide [Lozol] 1.25 mg PO DAILY 02/20/21 11/23/21 Isosorbide Mononitrate ER [Imdur] 30 mg PO DAILY 02/20/21 11/23/21 Multivitamins, Thera [Multivitamin 1 tab PO DAILY 02/20/21 11/23/21 (formulary)] [place]-3 Fatty Acids/Fish Oil [Fish 1 cap PO TID 02/20/21 11/23/21 Oil 1,000 mg Softgel] Zinc 50 mg PO DAILY 02/20/21 11/23/21 allopurinoL [Zyloprim] 100 mg PO DAILY 02/20/21 11/23/21 Cholecalciferol [Vitamin D3 (125 125 mcg PO DAILY 11/23/21 11/23/21 Mcg = 5000 Iu)] Insulin Aspart [NovoLOG Flexpen] 5 units SQ AC-BRKFST 11/23/21 11/23/21 Insulin Glargine,Hum.rec.anlog 30 unit SQ HS 11/23/21 11/23/21 [Lantus Solostar Pen] Levothyroxine Sodium [Synthroid] 50 mcg PO DOHERTY@0600 11/23/21 11/23/21 carvediloL [Coreg] 25 mg PO BID 11/23/21 11/23/21 Previous Rx's Medication Instructions Recorded Oseltamivir 6Mg/ml Oral Susp 30 mg PO DAILY 3 Days #3 each 11/24/21 [Tamiflu] Allergies Allergy/AdvReac Type Severity Reaction Status Date / Time No Known Allergies Allergy Verified 11/27/21 12:51 Review of Systems ROS Statement: Those systems with pertinent positive or pertinent negative responses have been documented in the HPI. ROS Other: All systems not noted in ROS Statement are negative. 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, UTI years ago, hypothyroid, occasional back pain History of Any Multi-Drug Resistant Organisms: None Reported Past Surgical History: Tubal Ligation Additional Past Surgical History / Comment(s): EGD, colonoscopy, endocapsule Past Anesthesia/Blood Transfusion Reactions: No Reported Reaction Past Psychological History: No Psychological Hx Reported Smoking Status: Never smoker Past Alcohol Use History: None Reported Past Drug Use History: None Reported - Past Family History Father Family Medical History: Coronary Artery Disease (CAD) Mother Family Medical History: Coronary Artery Disease (CAD) Additional Family Medical History / Comment(s): Mother had 4 vessel CABG General Exam Limitations: no limitations Course Vital Signs 11/27/21 12:49 Temperature 97.5 F L Pulse Rate 61 Respiratory 20 Rate Blood Pressure 164/75 O2 Sat by Pulse 100 Oximetry Medical Decision Making - Lab Data Result diagrams: 11/27/21 13:18 11/27/21 13:18 Lab Results 11/27/21 11/27/21 11/27/21 Range/Units 13:15 13:18 13:18 WBC 5.2 (3.8-10.6) k/uL RBC 3.90 (3.80-5.40) m/uL Hgb 11.9 (11.4-16.0) gm/dL Hct 34.4 (34.0-46.0) % MCV 88.3 (80.0-100.0) fL MCH 30.6 (25.0-35.0) pg MCHC 34.6 (31.0-37.0) g/dL RDW 14.2 (11.5-15.5) % Plt Count 241 (150-450) k/uL MPV 7.8 Neutrophils % 47 % Lymphocytes % 40 % Monocytes % 7 % Eosinophils % 1 % Basophils % 1 % Neutrophils # 2.5 (1.3-7.7) k/uL Lymphocytes # 2.1 (1.0-4.8) k/uL Monocytes # 0.3 (0-1.0) k/uL Eosinophils # 0.1 (0-0.7) k/uL Basophils # 0.0 (0-0.2) k/uL PT (9.0-12.0) sec INR (<1.2) APTT (22.0-30.0) sec Sodium 139 (137-145) mmol/L Potassium 4.3 (3.5-5.1) mmol/L Chloride 106 (98-107) mmol/L Carbon Dioxide 23 (22-30) mmol/L Anion Gap 10 mmol/L BUN 17 (7-17) mg/dL Creatinine 1.05 H (0.52-1.04) mg/dL Est GFR (CKD-EPI)AfAm 60 (>60 ml/min/1.73 sqM) Est GFR (CKD-EPI)NonAf 52 (>60 ml/min/1.73 sqM) Glucose 109 H (74-99) mg/dL POC Glucose (mg/dL) 99 (70-110) mg/dL POC Glu Community Liaison ID Danny Bowser Plasma Lactic Acid Bib (0.7-2.0) mmol/L Calcium 9.1 (8.4-10.2) mg/dL Magnesium 1.7 (1.6-2.3) mg/dL Ammonia (<30) umol/L TSH 4.460 (0.465-4.680) mIU/L Urine Color Urine Appearance (Clear) Urine pH (5.0-8.0) Ur Specific [place] (1.001-1.035) Urine Protein (Negative) Urine Glucose (UA) (Negative) Urine Ketones (Negative) Urine Blood (Negative) Urine Nitrite (Negative) Urine Bilirubin (Negative) Urine Urobilinogen (<2.0) mg/dL Ur Leukocyte Esterase (Negative) Urine RBC (0-5) /hpf Urine WBC (0-5) /hpf 11/27/21 11/27/21 11/27/21 Range/Units 13:18 13:18 14:55 WBC (3.8-10.6) k/uL RBC (3.80-5.40) m/uL Hgb (11.4-16.0) gm/dL Hct (34.0-46.0) % MCV (80.0-100.0) fL MCH (25.0-35.0) pg MCHC (31.0-37.0) g/dL RDW (11.5-15.5) % Plt Count (150-450) k/uL MPV Neutrophils % % Lymphocytes % % Monocytes % % Eosinophils % % Basophils % % Neutrophils # (1.3-7.7) k/uL Lymphocytes # (1.0-4.8) k/uL Monocytes # (0-1.0) k/uL Eosinophils # (0-0.7) k/uL Basophils # (0-0.2) k/uL PT 10.2 (9.0-12.0) sec INR 0.9 (<1.2) APTT 25.6 (22.0-30.0) sec Sodium (137-145) mmol/L Potassium (3.5-5.1) mmol/L Chloride (98-107) mmol/L Carbon Dioxide (22-30) mmol/L Anion Gap mmol/L BUN (7-17) mg/dL Creatinine (0.52-1.04) mg/dL Est GFR (CKD-EPI)AfAm (>60 ml/min/1.73 sqM) Est GFR (CKD-EPI)NonAf (>60 ml/min/1.73 sqM) Glucose (74-99) mg/dL POC Glucose (mg/dL) (70-110) mg/dL POC Glu Community Liaison ID Plasma Lactic Acid Bib 1.3 (0.7-2.0) mmol/L Calcium (8.4-10.2) mg/dL Magnesium (1.6-2.3) mg/dL Ammonia <9 (<30) umol/L TSH (0.465-4.680) mIU/L Urine Color Light Yellow Urine Appearance Clear (Clear) Urine pH 7.0 (5.0-8.0) Ur Specific [place] 1.006 (1.001-1.035) Urine Protein Negative (Negative) Urine Glucose (UA) Negative (Negative) Urine Ketones Negative (Negative) Urine Blood Negative (Negative) Urine Nitrite Negative (Negative) Urine Bilirubin Negative (Negative) Urine Urobilinogen <2.0 (<2.0) mg/dL Ur Leukocyte Esterase Small H (Negative) Urine RBC <1 (0-5) /hpf Urine WBC 13 H (0-5) /hpf Disposition Clinical Impression: Encephalopathy Disposition: ADMITTED IP TO [facility] Condition: Fair Referrals: Mitch Hayes DO [Primary Care Provider] - 1-2 days Decision Time: 15:40
[2021-11-27 13:17] LABS: Glucose,Whole Blood 99 mg/dL (70-110)
[2021-11-27 13:43] LABS: Basophils % (A) 1 %; Eosinophils # (A) 0.1 k/uL (0-0.7); Eosinophils % (A) 1 %; HCT 34.4 % (34.0-46.0); HGB 11.9 gm/dL (11.4-16.0); Lymphocytes # (A) 2.1 k/uL (1.0-4.8); Lymphocytes % (A) 40 %; MCH 30.6 pg (25.0-35.0); MCHC 34.6 g/dL (31.0-37.0); MCV 88.3 fL (80.0-100.0); Mean Platelet Volume 7.8; Monocytes # (A) 0.3 k/uL (0-1.0); Monocytes % (A) 7 %; Neutrophils # (A) 2.5 k/uL (1.3-7.7); Neutrophils % (A) 47 %; Platelet Count 241 k/uL (150-450); RDW 14.2 % (11.5-15.5); WBC 5.2 k/uL (3.8-10.6)
[2021-11-27 13:46] LABS: Lactic Acid, Venous 1.3 mmol/L (0.7-2.0)
[2021-11-27 13:47] LABS: Calcium 9.1 mg/dL (8.4-10.2); Magnesium 1.7 mg/dL (1.6-2.3); Potassium 4.3 mmol/L (3.5-5.1)
[2021-11-27 13:57] LABS: INR 0.9 (<1.2); Partial Thromboplastin Time 25.6 sec (22.0-30.0); Prothrombin Time 10.2 sec (9.0-12.0)
[2021-11-27 14:59] LABS: Appearance,Urine Clear (Clear); Bilirubin,Urine Negative (Negative); Blood,Urine Negative (Negative); Color,Urine Light Yellow; Glucose,Urine (UA) Negative (Negative); Ketones,Urine Negative (Negative); Leukocyte Esterase,Urine Small (Negative); Nitrite,Urine Negative (Negative); Protein,Urine Negative (Negative); RBC,Urine <1 /hpf (0-5); Specific Gravity,Urine 1.006 (1.001-1.035); Urobilinogen,Urine <2.0 mg/dL (<2.0); WBC,Urine 13 /hpf (0-5)
--- NOTE | 2021-11-27 14:59 | CT ---
EXAMINATION TYPE: CT brain wo con DATE OF EXAM: 11/27/2021 COMPARISON: 02/05/2018 HISTORY: ams CT DLP: 1100.4 mGycm Automated exposure control for dose reduction was used. Ventricles of normal size. There is no mass effect or midline shift. No sign of intracranial hemorrha ge. The calvarium is intact. IMPRESSION: Negative unenhanced head CT scan. No change. Mild atrophy appropriate for age.
--- NOTE | 2021-11-27 15:20 | CT ---
EXAMINATION TYPE: CT angio head neck DATE OF EXAM: 11/27/2021 COMPARISON: None HISTORY: ams CT DLP: 639.2 mGycm Automated exposure control for dose reduction was used. CONTRAST: Performed with IV Contrast, patient injected with 65 mL of Isovue 370. Images obtained from the aortic arch to the vertex of the brain with the IV contrast. There are 3-D post processed images. There is normal branching pattern of the great vessels of the aortic arch. There is bilateral arteria l flow in the subclavian arteries. There is arterial flow in the common internal and external carotid arteries bilaterally. There is some plaque formation at the left and right carotid artery bifurcatio n. There is estimated 50% stenosis at the origin of the right internal carotid artery. There is 35% s tenosis origin of the left internal carotid artery. There is arterial flow in the anterior middle and posterior cerebral arteries bilaterally. There is e xtra-axial calcified mass at the anterior right temporal bone measuring 2 cm and consistent with meni ngioma. There is no mass effect. No evidence of intracranial Hemodynamic arterial stenosis. No eviden ce of intracranial aneurysm or neovascularity. There is normal enhancement of the venous sinuses. IMPRESSION: Plaque formation at the carotid bifurcations with stenosis as above at the origins of the internal ca rotid arteries. No significant intracranial angiographic abnormality. Meningioma in the right temporal lobe without c hange compared to CT scan of 02/05/2018.
[2021-11-27] MEDS ORDERED: cefTRIAXone IN SWFI 1,000 MG/10 ML SYRINGE IVP STA (15:22)
[2021-11-27] MEDS ORDERED: NALOXONE 0.4 MG/ML 1 ML VIAL IV PRN (15:38)
[2021-11-27] MEDS ORDERED: ASPIRIN 81 MG PO STA (15:38)
[2021-11-27] MEDS ORDERED: SODIUM CHLORIDE 0.9% 1,000 ML IV SCH (15:45)
[2021-11-27] MEDS ORDERED: NON FORMULARY DRUG (Omega-3 Fatty Acids/Fish Oil [Fish Oil 1,000 Mg Softgel] 1 EACH Capsul PO SCH (16:00)
[2021-11-27] MEDS ORDERED: ACETAMINOPHEN TAB 325 MG TAB PO PRN (16:02)
--- NOTE | 2021-11-27 16:02 | P.HPIM ---
History of Present Illness H&P Date: 11/27/21 Chief Complaint: Confusion 76-year-old woman with medical history of diabetes, hypothyroidism, hypertension, gout, hyperlipidemia, recent flu or pneumonia discharged 3 days ag o on Tamiflu presented with episodes of confusion and headache. Patient does not remember much of her history due to being altered, therefore, history is provided by ER provider signout as well as family was at bedside. From my understanding, patient has been demonstrating episodes of confusion and loss of memory regarding her previous hospitalization as well as was been going on at home over the last 3 days. She is usually very "sharp" and now she is having trouble remembering basic medications that she's been taking as well as recent events. Based on this change of mental status, patient's family became concerned and brought patient to the hospital for further evaluation. Patient's review of systems is positive for headache, otherwise negative for fevers, chills, nausea, vomiting, chest pain, palpitations, syncope, presyncope, cough, dyspnea, abdominal pain, constipation, diarrhea, dysuria, dyschezia, numbness/weakness of extremities. In the emergency room, patient is afebrile, 164/75, heart rate 61, 100% on room air. CBC is unremarkable. Chemistries show improving creatinine from previous acute kidney injury. Liver function tests are unremarkable. Ammonia is less than 9. TSH is 4.46. Lactic acid is 1.3. UA shows small leukocyte esterase as well as 13 white blood cells. Patient's brain CT is negative for acute cardiopulmonary pathology. CT of the head and neck with angiography demonstrates no focal stenosis but does show right meningioma. EKG shows sinus bradycardia with occasional PVC. All Systems reviewed and pertinent positives and negatives noted in HPI, all other symptoms are negative Gen: in no apparent distress, resting comfortably in bed, alert and oriented 1 Eyes: PERRL, no scleral injection or icterus HENT: normocephalic, atraumatic, good hearing acuity, moist mucous membranes Neck: no tracheal deviation, full range of motion Resp: good air exchange, breathing comfortably with no accessory muscle use, no tactile fremitus, clear to auscultation bilaterally CVS: good distal perfusion x 4, no pitting edema, regular rate and rhythm witho ut murmurs GI: soft, NTTP, ND, no hepatosplenomegaly : no suprapubic tenderness, no CVAT, berkowitz catheter not present MSK: no clubbing, no cyanosis, no noted contractures of extremities Skin: no noted rashes, petechiae; temperature of skin is appropriate Neuro: moving all extremities without signs of weakness, CN II-XII intact Psych: cooperative, euthymic mood, insight and judgment intact Labs and imaging reviewed as above Assessment/plan: Altered mental status Headache Recent influenza a infection, on Tamiflu -Admit to observation -Neurology consult -Hold Tamiflu as this can cause headache and confusion -Frequent reorientation -Maintain day/night cycles -Avoid anticholinergics, benzodiazepines -Tylenol when necessary Diabetes type 2 Hypothyroidism Hypertension Gout Hyperlipidemia -Home medications reviewed and reconciled -Sliding-scale insulin Patient is full code DVT prophylaxis with heparin 3 times a day 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, UTI years ago, hypothyroid, occasional back pain History of Any Multi-Drug Resistant Organisms: None Reported Past Surgical History: Tubal Ligation Additional Past Surgical History / Comment(s): EGD, colonoscopy, endocapsule Past Anesthesia/Blood Transfusion Reactions: No Reported Reaction Past Psychological History: No Psychological Hx Reported Smoking Status: Never smoker Past Alcohol Use History: None Reported Past Drug Use History: None Reported - Past Family History Father Family Medical History: Coronary Artery Disease (CAD) Mother Family Medical History: Coronary Artery Disease (CAD) Additional Family Medical History / Comment(s): Mother had 4 vessel CABG Medications and Allergies Home Medications Medication Instructions Recorded Confirmed Type Ascorbic Acid [Vitamin C] 1,000 mg PO BID 04/25/17 11/23/21 History Aspirin 81 mg PO DAILY 04/25/17 11/23/21 History Levothyroxine Sodium [Synthroid] 112 mcg PO DAILY@0600 04/25/17 11/23/21 History Omeprazole 20 mg PO DAILY@0600 02/05/18 11/23/21 History Ezetimibe [Zetia] 10 mg PO DAILY 02/20/21 11/23/21 History Indapamide [Lozol] 1.25 mg PO DAILY 02/20/21 11/23/21 History Isosorbide Mononitrate ER [Imdur] 30 mg PO DAILY 02/20/21 11/23/21 History Multivitamins, Thera [Multivitamin 1 tab PO DAILY 02/20/21 11/23/21 History (formulary)] [place]-3 Fatty Acids/Fish Oil [Fish 1 cap PO TID 02/20/21 11/23/21 History Oil 1,000 mg Softgel] Zinc 50 mg PO DAILY 02/20/21 11/23/21 History allopurinoL [Zyloprim] 100 mg PO DAILY 02/20/21 11/23/21 History Cholecalciferol [Vitamin D3 (125 125 mcg PO DAILY 11/23/21 11/23/21 History Mcg = 5000 Iu)] Insulin Aspart [NovoLOG Flexpen] 5 units SQ AC-BRKFST 11/23/21 11/23/21 History Insulin Glargine,Hum.rec.anlog 30 unit SQ HS 11/23/21 11/23/21 History [Lantus Solostar Pen] Levothyroxine Sodium [Synthroid] 50 mcg PO DOHERTY@0600 11/23/21 11/23/21 History carvediloL [Coreg] 25 mg PO BID 11/23/21 11/23/21 History Oseltamivir 6Mg/ml Oral Susp 30 mg PO DAILY 3 Days #3 each 11/24/21 Rx [Tamiflu] Allergies Allergy/AdvReac Type Severity Reaction Status Date / Time No Known Allergies Allergy Verified 11/27/21 15:54 Physical Exam Osteopathic Statement: *. No significant issues noted on an osteopathic structural exam other than those noted in the History and Physical/Consult. Vitals: Vital Signs Temp Pulse Resp BP Pulse Ox 11/27/21 15:48 60 18 98 11/27/21 12:49 97.5 F L 61 20 164/75 100 Intake and Output 11/27/21 11/27/21 11/27/21 06:59 14:59 22:59 Other: Weight 90.718 kg Results CBC & Chem 7: 11/27/21 13:18 11/27/21 13:18 Labs: Abnormal Lab Results - Last 24 Hours (Table) 11/27/21 11/27/21 Range/Units 13:18 14:55 Creatinine 1.05 H (0.52-1.04) mg/dL Glucose 109 H (74-99) mg/dL Ur Leukocyte Esterase Small H (Negative) Urine WBC 13 H (0-5) /hpf
[2021-11-27 17:15] LABS: Glucose,Whole Blood 94 mg/dL (70-110)
[2021-11-27] MEDS: INSULIN ASPART (NovoLOG) 100 UNIT/ML VIAL SQ SCH (17:34)
[2021-11-27] MEDS: carvediloL 12.5 MG TAB PO SCH (18:24)
[2021-11-27] MEDS ORDERED: INSULIN DETEMIR (LEVEMIR) 100 UNIT/ML SYR SQ SCH (21:00)
[2021-11-27] MEDS: HEPARIN SODIUM,PORCINE/PF 5,000 UNIT/0.5 ML SYRINGE SQ SCH ×2 (22:59→23:09)
[2021-11-27] MEDS: ASCORBIC ACID 500 MG TAB PO SCH (23:00)
[2021-11-27 23:15] LABS: Glucose,Whole Blood 99 mg/dL (70-110)
[2021-11-28] MEDS ORDERED: LEVOTHYROXINE 112 MCG TAB PO SCH (06:00)
[2021-11-28] MEDS ORDERED: LEVOTHYROXINE 50 MCG TAB PO SCH (06:00)
[2021-11-28] MEDS ORDERED: PANTOPRAZOLE 40 MG TABLET PO SCH (06:00)
[2021-11-28] MEDS ORDERED: INSULIN ASPART (NovoLOG) 100 UNIT/ML VIAL SQ SCH (07:30)
[2021-11-28 08:04] VITALS: BP 138/78; PULSE 64; RESP 18; TEMP 98.2
[2021-11-28] MEDS: INSULIN ASPART (NovoLOG) 100 UNIT/ML VIAL SQ SCH ×2 (08:55→14:06)
[2021-11-28] MEDS ORDERED: EZETIMIBE 10 MG TAB PO SCH (09:00)
[2021-11-28] MEDS ORDERED: hydroCHLOROthiazide 12.5 MG CAP PO SCH (09:00)
[2021-11-28] MEDS ORDERED: CHOLECALCIFEROL 125 MCG (5000 IU) TABLET PO SCH (09:00)
[2021-11-28] MEDS ORDERED: ISOSORBIDE MONONITRATE ER 30 MG TAB.ER.24H PO SCH (09:00)
[2021-11-28] MEDS ORDERED: MULTIVITAMINS, THERA 1 EACH TAB PO SCH (09:00)
[2021-11-28] MEDS ORDERED: allopurinoL 100 MG TAB PO SCH (09:00)
[2021-11-28] MEDS ORDERED: ASPIRIN 81 MG PO SCH (09:00)
[2021-11-28] MEDS ORDERED: ZINC SULFATE 220 MG CAP PO SCH (09:00)
[2021-11-28 09:14] LABS: Basophils # (A) 0.03 X 10*3/uL (0.00-0.10); Basophils % (A) 0.6 %; Eosinophils # (A) 0.09 X 10*3/uL (0.04-0.35); Eosinophils % (A) 1.7 %; HCT 34.5 % (37.2-46.3); HGB 11.1 g/dL (12.0-15.0); Immature Grans, Automated 0.2 %; Lymphocytes # (A) 2.49 X 10*3/uL (0.90-5.00); Lymphocytes % (A) 47.5 %; MCH 29.4 pg (27.0-32.0); MCHC 32.2 g/dL (32.0-37.0); MCV 91.3 fL (80.0-97.0); Mean Platelet Volume 9.9 fL (9.5-12.2); Monocytes # (A) 0.54 X 10*3/uL (0.20-1.00); Monocytes % (A) 10.3 %; NRBC Per 100 WBC 0 /100 WBCS (0.0-0.0); Neutrophils # (A) 2.08 X 10*3/uL (1.80-7.70); Neutrophils % (A) 39.7 %; Platelet Count 219 X 10*3/uL (140-440); RBC 3.78 X 10*6/uL (4.10-5.20); RDW 14.4 % (11.5-14.5); WBC 5.24 X 10*3/uL (4.50-10.00)
[2021-11-28 09:25] LABS: African American GFR (CKD) 51.2 (60.0-200.0); Anion Gap 10.9 mmol/L (10.00-18.00); BUN/Creat Ratio 12.42 Ratio (12.00-20.00); Blood Urea Nitrogen 14.9 mg/dL (9.0-27.0); Calcium 8.9 mg/dL (8.7-10.3); Carbon Dioxide 24.1 mmol/L (20.0-27.5); Magnesium 1.8 mg/dL (1.5-2.4); Non-African American GFR(CKD) 44.2 (60.0-200.0); Potassium 3.7 mmol/L (3.5-5.5)
[2021-11-28] MEDS ORDERED: ONDANSETRON 4 MG/2 ML VIAL IVP STA (09:27)
--- NOTE | 2021-11-28 09:43 | P.CNNES ---
History of Present Illness Consult date: 11/28/21 Requesting physician: Leon Morrison Reason for Consult: encephalopathy History of Present Illness: This is a 76-year-old woman with medical history of hypertension, hypothyroidism, diabetes who presented emergency department because of episode of confusion and headache. Some of the history is obtained from the patient's daughter (who is at bedside). Seems to the patient has been having a dry cough since last Sunday with generalized weakness. She presented to our facility on 11/23/2021 and she had influenza a on a positive but the influenza B PCR was negative in the [place] virus PCR was negative. She received Tamiflu from Sunday till end of Sunday according to daughter and unsure if she received yesterday. At home, the patient she notified her grand-son she was not feeling well and result her family members brought her to the hospital. Per daughter she did not remember how she got to the hospital or exactly transpired yesterday but remembers so of the stuff she did at home but continues to have memory loss of how she got to hospital. Her daughter felt the patient was drastically confused yesterday and better today. She also having bilateral frontal headache since yesterday that is intermittent, dull, without radiation, 5/10, denies photophobia or phonophobia but feels nauseous and denies vomiting. Denies focal weakness, visual disturbance, sensory loss. She felt the headache resolved yesterday but reoccurred today. Per daughter her mentation has drastically improved Some of the workup during this hospitalization consisted of: Patient has been afebrile during his hospital visit. CBC with differential is unremarkable Glucose is 109 and a creatinine is 1.05 otherwise the rest of the chemistry panel is unremarkable Ammonia level is less than 9, TSH is 4.460 CT of the head is reported as negative unenhanced head CT scan. No change. Mild atrophy appropriate for age. I personally tried to open and review the CT that the head but having issues opening her CT. CT angiography of the head and neck is reported as lack formation at the carotid bifurcation was stenosis as above at the origins of internal carotid arteries. It's reported in the body that there is estimated 50% stenosis of the origin of the right internal carotid and there is a 35% stenosis at the origin of the left internal carotid. No significant intercranial and angiographic abnormality. Meningioma in the right temporal lobe without change compared to the computed tomography scan of 02/05/2018. Review of Systems Review of system: The 12 point system was reviewed and apparent positive and negative per HPI. 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, UTI years ago, hypothyroid, occasional back pain History of Any Multi-Drug Resistant Organisms: None Reported Past Surgical History: Tubal Ligation Additional Past Surgical History / Comment(s): EGD, colonoscopy, endocapsule Past Anesthesia/Blood Transfusion Reactions: No Reported Reaction Past Psychological History: No Psychological Hx Reported Smoking Status: Never smoker Past Alcohol Use History: None Reported Past Drug Use History: None Reported - Past Family History Father Family Medical History: Coronary Artery Disease (CAD) Mother Family Medical History: Coronary Artery Disease (CAD) Additional Family Medical History / Comment(s): Mother had 4 vessel CABG Medications and Allergies Home Medications Medication Instructions Recorded Confirmed Type Ascorbic Acid [Vitamin C] 1,000 mg PO BID 04/25/17 11/27/21 History Aspirin 81 mg PO DAILY 04/25/17 11/27/21 History Levothyroxine Sodium [Synthroid] 112 mcg PO DAILY@0600 04/25/17 11/27/21 History Omeprazole 20 mg PO DAILY@0600 02/05/18 11/27/21 History Ezetimibe [Zetia] 10 mg PO DAILY 02/20/21 11/27/21 History Indapamide [Lozol] 1.25 mg PO DAILY 02/20/21 11/27/21 History Isosorbide Mononitrate ER [Imdur] 30 mg PO DAILY 02/20/21 11/27/21 History Multivitamins, Thera [Multivitamin 1 tab PO DAILY 02/20/21 11/27/21 History (formulary)] [place]-3 Fatty Acids/Fish Oil [Fish 1 cap PO TID 02/20/21 11/27/21 History Oil 1,000 mg Softgel] Zinc 50 mg PO DAILY 02/20/21 11/27/21 History allopurinoL [Zyloprim] 100 mg PO DAILY 02/20/21 11/27/21 History Cholecalciferol [Vitamin D3 (125 125 mcg PO DAILY 11/23/21 11/27/21 History Mcg = 5000 Iu)] Insulin Aspart [NovoLOG Flexpen] 5 units SQ AC-BRKFST 11/23/21 11/27/21 History Insulin Glargine,Hum.rec.anlog 30 unit SQ HS 11/23/21 11/27/21 History [Lantus Solostar Pen] Levothyroxine Sodium [Synthroid] 50 mcg PO DOHERTY@0600 11/23/21 11/27/21 History carvediloL [Coreg] 25 mg PO BID 11/23/21 11/27/21 History Allergies Allergy/AdvReac Type Severity Reaction Status Date / Time No Known Allergies Allergy Verified 11/27/21 15:54 Physical Examination - Vital Signs Vital Signs: Vital Signs Temp Pulse Pulse Pulse Resp BP BP 11/28/21 08:03 98.2 F 64 18 138/78 11/28/21 02:00 97.7 F 53 L 16 11/27/21 20:00 98.0 F 53 L 16 11/27/21 16:50 56 L 16 147/70 11/27/21 15:48 60 18 11/27/21 12:49 97.5 F L 61 20 164/75 BP Pulse Ox 11/28/21 08:03 97 11/28/21 02:00 136/64 97 11/27/21 20:00 140/66 96 11/27/21 16:50 99 11/27/21 15:48 98 11/27/21 12:49 100 Intake and Output 11/27/21 11/28/21 11/28/21 22:59 06:59 14:59 Other: # Voids 1 2 GENERAL: The patient is lying in bed and is not in acute distress. CHEST: The heart rate is regular rate rhythm. No murmurs to auscultation. No carotid bruit bilaterally. LUNG: Clear to auscultation bilaterally no wheezing noted throughout. Not labored breathing. ABDOMEN/GI: Bowel sounds present in all 4 quadrants. No tenderness to palpation throughout. NEUROLOGICAL: Higher mental function: The patient is awake, alert, oriented to self, place and time. Patient is following commands. No aphasia and no neglect. Cranial nerves: The pupils are round, equal and reactive to light and accommodation. Visual borjas are full to confrontation throughout. Extraocular movement is intact no nystagmus is noted. Facial sensation is normal to touch throughout. The facial strength is normal throughout. Hearing is normal bilaterally to hand rub. Tongue is midline and moved [id number] without any difficulty. No dysarthria is noted. Shoulder shrug is normal bilaterally. Motor: The strength is 5 over 5 throughout. Normal tone and bulk. Cerebellum: Normal finger to nose heel to orr bilaterally. Sensation: Sensation is normal to touch throughout. Reflexes (right/left): 2+ throughout. Plantars are downgoing bilaterally. Results - Laboratory Findings CBC and BMP: 11/28/21 05:29 11/28/21 05:29 Abnormal Lab Findings: Abnormal Labs 11/27/21 11/27/21 13:18 14:55 Creatinine 1.05 H Glucose 109 H Ur Leukocyte Esterase Small H Urine WBC 13 H Assessment and Plan Assessment: This is a 76-year-old woman with recent influenza a and has received Tamiflu since who presented because of confusion and headache. Altered mental status for three days prior to presenting hospital. Encephalopathy of unknown etiology but possibly due to her recent Influenza with recent Tamiflu. Her daugther feels her confusion is improved except still has brief episode of transient global amnesia of how she got to our facility. Cephalgia over the bilateral frontal possibly due to above Recent influenza A infection and received recent Tamiflu Type 2 diabetes Hypothyroidism Hypertension Gout Hyperlipidemia Plan: I ordered ESR, CRP, JODY, routine EEG to rule out seizure. I initially ordered MRI Brain w/ and w/o to rule out stroke or any significant intracranial mass causing her symptoms but patient refused and stated will consider it as outpatient if continues to have symptoms as outpatient since wants open MRI. Urine cultures as ordered by the ED team is pending We'll defer the rest of the medical management to primary team. The plan is discussed with patient and her daughter who is at bedside. Thank you for the consultation. Rodrigo Friedman M.D. Neuro-Hospitalist Time with Patient: Greater than 30
[2021-11-28] MEDS: carvediloL 12.5 MG TAB PO SCH (09:46)
[2021-11-28] MEDS: ASCORBIC ACID 500 MG TAB PO SCH (09:47)
[2021-11-28] MEDS: HEPARIN SODIUM,PORCINE/PF 5,000 UNIT/0.5 ML SYRINGE SQ SCH (09:51)
[2021-11-28 13:07] LABS: Glucose,Whole Blood 121 mg/dL (70-110)
--- NOTE | 2021-11-28 13:39 | P.DS ---
Providers Date of admission: 11/27/21 15:39 Expected date of discharge: 11/28/21 Attending physician: Genaro Barnett MD Consults: 11/27/21 15:33 Consult Physician Routine Consulting Provider: Shabbir Jeffrey Consult Reason/Comments: encephalopathy Do you want consulting provider notified?: Yes Primary care physician: [facility] Course: Altered mental status Headache Recent influenza a infection, on Tamiflu Diabetes type 2 Hypothyroidism Hypertension Gout Hyperlipidemia 76-year-old woman with medical history of diabetes, hypothyroidism, hypertension, gout, hyperlipidemia, recent flu or pneumonia discharged 3 days ago on Tamiflu presented with episodes of confusion and headache. In the emergency room, patient is afebrile, 164/75, heart rate 61, 100% on room air. CBC is unremarkable. Chemistries show improving creatinine from previous acute kidney injury. Liver function tests are unremarkable. Ammonia is less than 9. TSH is 4.46. Lactic acid is 1.3. UA shows small leukocyte esterase as well as 13 white blood cells. Patient's brain CT is negative for acute cardiopulmonary pathology. CT of the head and neck with angiography demonstrates no focal stenosis but does show right meningioma. EKG shows sinus bradycardia with occasional PVC. Patient improved by the following day back to her baseline. She did undergo EEG which was negative for seizure-like activity. ESR was mildly elevated, but CRP was negative. LIVIA was negative. Patient will follow- up with primary care. She was instructed to discontinue Tamiflu. Gen: in no apparent distress, resting comfortably in bed, alert and oriented 1 Eyes: PERRL, no scleral injection or icterus HENT: normocephalic, atraumatic, good hearing acuity, moist mucous membranes Neck: no tracheal deviation, full range of motion Resp: good air exchange, breathing comfortably with no accessory muscle use, no tactile fremitus, clear to auscultation bilaterally CVS: good distal perfusion x 4, no pitting edema, regular rate and rhythm without murmurs GI: soft, NTTP, ND, no hepatosplenomegaly : no suprapubic tenderness, no CVAT, berkowitz catheter not present MSK: no clubbing, no cyanosis, no noted contractures of extremities Skin: no noted rashes, petechiae; temperature of skin is appropriate Neuro: moving all extremities without signs of weakness, CN II-XII intact Psych: cooperative, euthymic mood, insight and judgment intact Patient Condition at Discharge: Good Plan - Discharge Summary Discharge Rx Participant: Yes New Discharge Prescriptions: New Acetaminophen Tab [Tylenol] 650 mg PO Q4HR PRN tab PRN Reason: Fever and/ or Mild Pain Continue Ascorbic Acid [Vitamin C] 1,000 mg PO BID Levothyroxine Sodium [Synthroid] 112 mcg PO DAILY@0600 Aspirin 81 mg PO DAILY Omeprazole 20 mg PO DAILY@0600 Isosorbide Mononitrate ER [Imdur] 30 mg PO DAILY Indapamide [Lozol] 1.25 mg PO DAILY Zinc 50 mg PO DAILY carvediloL [Coreg] 25 mg PO BID [place]-3 Fatty Acids/Fish Oil [Fish Oil 1,000 mg Softgel] 1 cap PO TID Multivitamins, Thera [Multivitamin (formulary)] 1 tab PO DAILY Ezetimibe [Zetia] 10 mg PO DAILY allopurinoL [Zyloprim] 100 mg PO DAILY Insulin Aspart [NovoLOG Flexpen] 5 units SQ AC-BRKFST Cholecalciferol [Vitamin D3 (125 Mcg = 5000 Iu)] 125 mcg PO DAILY Levothyroxine Sodium [Synthroid] 50 mcg PO DOHERTY@0600 Insulin Glargine,Hum.rec.anlog [Lantus Solostar Pen] 30 unit SQ HS Discharge Medication List Ascorbic Acid [Vitamin C] 1,000 mg PO BID 04/25/17 [History] Aspirin 81 mg PO DAILY 04/25/17 [History] Levothyroxine Sodium [Synthroid] 112 mcg PO DAILY@0600 04/25/17 [History] Omeprazole 20 mg PO DAILY@0600 02/05/18 [History] Ezetimibe [Zetia] 10 mg PO DAILY 02/20/21 [History] Indapamide [Lozol] 1.25 mg PO DAILY 02/20/21 [History] Isosorbide Mononitrate ER [Imdur] 30 mg PO DAILY 02/20/21 [History] Multivitamins, Thera [Multivitamin (formulary)] 1 tab PO DAILY 02/20/21 [History] [place]-3 Fatty Acids/Fish Oil [Fish Oil 1,000 mg Softgel] 1 cap PO TID 02/20/21 [History] Zinc 50 mg PO DAILY 02/20/21 [History] allopurinoL [Zyloprim] 100 mg PO DAILY 02/20/21 [History] Cholecalciferol [Vitamin D3 (125 Mcg = 5000 Iu)] 125 mcg PO DAILY 11/23/21 [History] Insulin Aspart [NovoLOG Flexpen] 5 units SQ AC-BRKFST 11/23/21 [History] Insulin Glargine,Hum.rec.anlog [Lantus Solostar Pen] 30 unit SQ HS 11/23/21 [History] Levothyroxine Sodium [Synthroid] 50 mcg PO DOHERTY@0600 11/23/21 [History] carvediloL [Coreg] 25 mg PO BID 11/23/21 [History] Acetaminophen Tab [Tylenol] 650 mg PO Q4HR PRN tab 11/28/21 [Rx] Follow up Appointment(s)/Referral(s): Mitch Hayes DO [Primary Care Provider] - 1-2 days Discharge Disposition: HOME SELF-CARE
--- NOTE | 2021-11-29 02:03 | EEG ---
ELECTROENCEPHALOGRAM REPORT CLINICAL HISTORY: This is a 76-year-old woman with altered mental status. The video EEG is obtained to evaluate for seizure epileptiform activity. RELEVANT MEDICATION: The patient is not on any antiepileptic drugs. EEG TYPE: A routine 21-channel EEG is performed with video using the 10/20 electrode placement system. DESCRIPTION: Wakefulness and drowsiness are obtained. During awake state, the posterior- dominant rhythm consists of 9.5 to 10.5 hertz activity that is well modulated, well sustained. There is no physiological stage 2 sleep architecture. There is no focal slowing. Interictal and ictal is none. ACTIVATION PROCEDURE: Photic stimulation did not evoke a posterior driving response. There is no abnormality during the photic stimulation. Hyperventilation is not performed. CLINICAL INTERPRETATION: This is a normal routine EEG. There is no focal slowing, epileptiform discharges, or seizure on the EEG. Clinical correlation is recommended. MAGO / PREETI: [id number] / MTDD
[2021-12-04] MEDS ORDERED: LEVOTHYROXINE 50 MCG TAB PO SCH (06:00)
== END 2021-11-28 14:51 | disposition home or self-care (01) ==
LOC: EC 12:47 → 6NMEDSUR 15:39
PROVIDERS: ADMIT Internal Medicine; ATTEND Internal Medicine
DX: G93.40 Encephalopathy, unspecified (principal); J10.1 Influenza due to other identified influenza virus with other respiratory manifestations; E11.9 Type 2 diabetes mellitus without complications; I10 Essential (primary) hypertension; E78.5 Hyperlipidemia, unspecified; K21.9 Gastro-esophageal reflux disease without esophagitis; G47.33 Obstructive sleep apnea (adult) (pediatric); I65.23 Occlusion and stenosis of bilateral carotid arteries; D32.9 Benign neoplasm of meninges, unspecified; E03.9 Hypothyroidism, unspecified; M10.9 Gout, unspecified; I49.3 Ventricular premature depolarization; Z79.82 Long term (current) use of aspirin; Z79.890 Hormone replacement therapy; Z79.899 Other long term (current) drug therapy; Z79.4 Long term (current) use of insulin; Z98.51 Tubal ligation status; Z82.49 Family history of ischemic heart disease and other diseases of the circulatory system
CPT/HCPCS: 96375; 96372; 96374; 99285; 36415; 95816; 93005; 80048 ×2; 85652; 82140; 83605; 83735 ×2; 84443; 85025 ×2; 85610; 85730; 86140; 81001; 86038; 87086; 70496; 70450; 70498; G0378 ×2; J2405; J0696; Q9967; J1644

== ENCOUNTER → 2021-12-06 | Outpatient (CLI) | payer MEDICARE ==
--- NOTE | 2021-12-06 16:15 | XR ---
EXAMINATION TYPE: XR chest 2V DATE OF EXAM: 12/06/2021 COMPARISON: 11/23/2021 INDICATION: Cough, flu TECHNIQUE: Frontal and lateral views of the chest are obtained. FINDINGS: The heart size is normal. The pulmonary vasculature is normal. The lungs are clear. IMPRESSION: 1. No acute pulmonary process.
== END | disposition home or self-care (01) ==
LOC: RADXRYALE 14:56
PROVIDERS: ATTEND Family Medicine
DX: J10.1 Influenza due to other identified influenza virus with other respiratory manifestations (principal)
CPT/HCPCS: 71046

== ENCOUNTER → 2022-02-27 | Outpatient (CLI) | payer MEDICARE ==
--- NOTE | 2022-02-27 12:09 | XR ---
EXAMINATION TYPE: XR thoracic spine complete DATE OF EXAM: 02/27/2022 CLINICAL HISTORY: Mid back pain TECHNIQUE: Frontal, lateral, and swimmer's view of thoracic spine are obtained. COMPARISON: None. FINDINGS: Thoracic spine show satisfactory alignment without evidence of acute fracture or dislocatio n. Vertebral body heights and disc space heights are preserved. Mild multilevel anterior spurring. B ridging osteophyte right T10-T11 level. Visualized ribs are intact bilaterally. Visualized lungs ar e clear. IMPRESSION: As above.
--- NOTE | 2022-02-27 12:11 | XR ---
EXAMINATION TYPE: XR ribs RT w pa chest xray DATE OF EXAM: 02/27/2022 CLINICAL HISTORY: Chest and right-sided rib pain. TECHNIQUE: Single frontal view of the chest is obtained. A frontal and oblique images of the right-si ded ribs. COMPARISON: Chest x-ray December 06, 2021 FINDINGS: There is no suspicious new focal air space opacity, pleural effusion, or pneumothorax seen . The cardiac silhouette size remains enlarged. The osseous structures are intact. Dedicated images of the right-sided ribs show no acute displaced fractures. Overlying soft tissue is unremarkable. IMPRESSION: 1. Cardiomegaly without acute pulmonary process. 2. No acute or subacute displaced right-sided rib fractures.
== END | disposition home or self-care (01) ==
LOC: RADXRYALE 10:04
PROVIDERS: ATTEND Family Medicine
DX: R10.31 Right lower quadrant pain (principal); M25.78 Osteophyte, vertebrae; M54.6 Pain in thoracic spine; I51.7 Cardiomegaly
CPT/HCPCS: 72072

== ENCOUNTER 2023-08-27 10:17 | Emergency (ER) | payer MEDICARE ==
--- NOTE | 2023-08-27 10:43 | ED ---
General Adult HPI - General Chief complaint: Dizziness Stated complaint: dizziness Time Seen by Provider: 08/27/23 10:21 Source: patient Mode of arrival: wheelchair - History of Present Illness Initial comments: Dictation was produced using [employer] dictation software. please excuse any grammatical, word or spelling errors. Chief Complaint: 77-year-old female presents with dizziness lightheadedness History of Present Illness: Patient 77-year-old female presents emergency depa rtment dizziness and lightheadedness. Patient has multiple comorbidities including rheumatoid arthritis. She takes methotrexate. Patient also has diabetes. States that she woke up feeling dizzy and lightheaded. States that her extremities felt a little tingly especially her bilateral lower extremities. Patient states she feels cold. Denies any fever chills or night sweats. Patient denies any pain complaints. Patient states that since being in the emergency department she feels significantly improved. Though she is still slightly symptomatic. The ROS documented in this emergency department record has been reviewed and confirmed by me. Those systems with pertinent positive or negative responses have been documented in the HPI. All other systems are other negative and/or noncontributory. - Related Data Home Medications Medication Instructions Recorded Confirmed Ascorbic Acid [Vitamin C] 1,000 mg PO BID 04/25/17 11/27/21 Aspirin 81 mg PO DAILY 04/25/17 11/27/21 Levothyroxine Sodium [Synthroid] 112 mcg PO DAILY@0600 04/25/17 11/27/21 Omeprazole 20 mg PO DAILY@0600 02/05/18 11/27/21 Ezetimibe [Zetia] 10 mg PO DAILY 02/20/21 11/27/21 Indapamide [Lozol] 1.25 mg PO DAILY 02/20/21 11/27/21 Isosorbide Mononitrate ER [Imdur] 30 mg PO DAILY 02/20/21 11/27/21 Multivitamins, Thera [Multivitamin 1 tab PO DAILY 02/20/21 11/27/21 (formulary)] [place]-3 Fatty Acids/Fish Oil [Fish 1 cap PO TID 02/20/21 11/27/21 Oil 1,000 mg Softgel] Zinc 50 mg PO DAILY 02/20/21 11/27/21 allopurinoL [Zyloprim] 100 mg PO DAILY 02/20/21 11/27/21 Cholecalciferol [Vitamin D3 (125 125 mcg PO DAILY 11/23/21 11/27/21 Mcg = 5000 Iu)] Insulin Aspart [NovoLOG Flexpen] 5 units SQ AC-BRKFST 11/23/21 11/27/21 Insulin Glargine,Hum.rec.anlog 30 unit SQ HS 11/23/21 11/27/21 [Lantus Solostar Pen] Levothyroxine Sodium [Synthroid] 50 mcg PO DOHERTY@0600 11/23/21 11/27/21 carvediloL [Coreg] 25 mg PO BID 11/23/21 11/27/21 Previous Rx's Medication Instructions Recorded Acetaminophen Tab [Tylenol] 650 mg PO Q4HR PRN tab 11/28/21 Allergies Allergy/AdvReac Type Severity Reaction Status Date / Time oseltamivir [From Tamiflu] AdvReac Hallucinati Verified 08/27/23 10:26 ons Review of Systems ROS Statement: Those systems with pertinent positive or pertinent negative responses have been documented in the HPI. ROS Other: All systems not noted in ROS Statement are negative. 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, UTI years ago, hypothyroid, occasional back pain History of Any Multi-Drug Resistant Organisms: None Reported Past Surgical History: Tubal Ligation Additional Past Surgical History / Comment(s): EGD, colonoscopy, endocapsule Past Anesthesia/Blood Transfusion Reactions: No Reported Reaction Past Psychological History: No Psychological Hx Reported Smoking Status: Never smoker Past Alcohol Use History: None Reported Past Drug Use History: None Reported - Past Family History Father Family Medical History: Coronary Artery Disease (CAD) Mother Family Medical History: Coronary Artery Disease (CAD) Additional Family Medical History / Comment(s): Mother had 4 vessel CABG General Exam - General Exam Comments Initial Comments: PHYSICAL EXAM: General Impression: Alert and oriented x3, not in acute distress HEENT: Normocephalic atraumatic, extra-ocular movements intact, pupils equal and reactive to light bilaterally, mucous membranes moist. Cardiovascular: Heart regular rate and rhythm Chest: Able to complete full sentences, no retractions, no tachypnea Abdomen: abdomen soft, non-tender, non-distended, no organomegaly Musculoskeletal: Pulses present and equal in all extremities, no peripheral edema Motor: no focal deficits noted Neurological: CN II-XII grossly intact, no focal motor or sensory deficits noted Skin: Intact with no visualized rashes Psych: Normal affect and mood Course Vital Signs 08/27/23 08/27/23 10:20 11:31 Temperature 97.5 F L 97.6 F Pulse Rate 61 57 L Respiratory 18 16 Rate Blood Pressure 167/89 144/64 O2 Sat by Pulse 100 97 Oximetry EKG Findings - EKG Comments: EKG Findings:: My EKG interpretation: Ventricular rate 55, sinus bradycardia,. 169, cures 108, QTc 423. No [place] prolongation, no QTC prolongation, no ST or T- wave changes noted. Overall, this EKG is unremarkable Medical Decision Making - Medical Decision Making Was pt. sent in by a medical professional or institution (Dr. PA, LINEN TECH, urgent care, hospital, or assisted...) When possible be specific @ -No Did you speak to anyone other than the patient for history (EMS, parent, family, police, friend...)? What history was obtained from this source @ -No Did you review nursing and triage notes (agree or disagree)? Why? @ -I reviewed and agree with nursing and triage notes Were old charts reviewed (outside hosp., previous admission, EMS record, old EKG, old radiological studies, urgent care reports/EKG's, assisted records)? Report findings @ -No old charts were reviewed Differential Diagnosis (chest pain, altered mental status, abdominal pain women, abdominal pain men, vaginal bleeding, musculoskeletal, weakness, fever, dyspnea, syncope, headache, dizziness, GI bleed, back pain, seizure, CVA, palpatations, mental health)? @ -Differential Weakness: Hypoglycemia, shock, sepsis, hyponatremia, anemia, infection, NV, ETOH, adverse medicine reaction, overdose, stroke, this is not meant to be an all-inclusive list. EKG interpreted by me (3pts min.). @ -See above X-rays interpreted by me (1pt min.). @ -None done CT interpreted by me (1pt min.). @ -None done U/S interpreted by me (1pt. min.). @ -None done What testing was considered but not performed or refused? (CT, X-rays, U/S, darryl banks)? Why? @ -None What meds were considered but not given or refused? Why? @ -None Was smoking cessation discussed for >3mins.? @ -No Were there social determinants of health that impacted care today? How? (Homelessness, low income, unemployed, alcoholism, drug addiction, transportation, low edu. Level, literacy, decrease access to med. care, long-term, rehab)? @ -No Was there de-escalation of care discussed even if they declined (Discuss DNR or withdrawal of care, Hospice)? DNR status @ -No What co-morbidities impacted this encounter? (DM, HTN, Smoking, COPD, CAD, Cancer, CVA, ARF, Chemo, Hep., AIDS, mental health diagnosis, sleep apnea, morbid obesity)? @ -None Was patient admitted / discharged? Hospital course, mention meds given and route, prescriptions, significant lab abnormalities, going to OR and other pertinent info. @ -77-year-old swelling female presents emergency department with vague symptoms of reported dizziness not feeling well lightheadedness. Patient has stable vital signs. Laboratory evaluation is unremarkable. Patient given IV fluids and Zofran with which she describes resolution of symptoms. Patient will be discharged advised follow-up with primary care doctor. Did you discuss the management of the patient with other professionals (professionals i.e. , PA, LINEN TECH, lab, RT, psych nurse, clinical social worker, circuit breaker assembler, teacher, intelligence officer basic, piano case and bench assembler)? Give summary @ -No Was critical care preformed (if so, how long)? @ -No Undiagnosed new problem with uncertain prognosis? @ -No Drug Therapy requiring intensive monitoring for toxicity (Heparin, Nitro, Insulin, Cardizem)? @ -No Were any procedures done? @ -No Diagnosis/symptom? Acute, or Chronic, or Acute on Chronic? Uncomplicated (without systemic symptoms) or Complicated (systemic symptoms)? @ -Lightheadedness Side effects of treatment? @ -No Exacerbation, Progression, or Severe Exacerbation? @ -No Poses a threat to life or bodily function? How? (Chest pain, [place], NV, pneumonia, PE, COPD, DKA, ARF, appy, cholecystitis, CVA, Diverticulitis, Homicidal, Suicidal, threat to staff... and all critical care pts) @ -No - Lab Data Result diagrams: 08/27/23 10:51 08/27/23 10:51 Lab Results 08/27/23 08/27/23 08/27/23 Range/Units 10:51 10:51 10:51 WBC 6.9 (3.8-10.6) k/uL RBC 4.26 (3.80-5.40) m/uL Hgb 13.3 (11.4-16.0) gm/dL Hct 39.8 (34.0-46.0) % MCV 93.5 (80.0-100.0) fL MCH 31.2 (25.0-35.0) pg MCHC 33.4 (31.0-37.0) g/dL RDW 15.3 (11.5-15.5) % Plt Count 310 (150-450) k/uL MPV 7.0 Neutrophils % 71 % Lymphocytes % 20 % Monocytes % 5 % Eosinophils % 2 % Basophils % 0 % Neutrophils # 4.9 (1.3-7.7) k/uL Lymphocytes # 1.4 (1.0-4.8) k/uL Monocytes # 0.3 (0-1.0) k/uL Eosinophils # 0.1 (0-0.7) k/uL Basophils # 0.0 (0-0.2) k/uL Sodium 136 L (137-145) mmol/L Potassium 4.5 (3.5-5.1) mmol/L Chloride 106 (98-107) mmol/L Carbon Dioxide 24 (22-30) mmol/L Anion Gap 6 mmol/L BUN 22 H (7-17) mg/dL Creatinine 1.09 H (0.52-1.04) mg/dL Est GFR (CKD-EPI)AfAm 57 (>60 ml/min/1.73 sqM) Est GFR (CKD-EPI)NonAf 50 (>60 ml/min/1.73 sqM) Glucose 75 (74-99) mg/dL Calcium 9.7 (8.4-10.2) mg/dL Magnesium 1.8 (1.6-2.3) mg/dL Total Bilirubin 0.8 (0.2-1.3) mg/dL AST 47 H (14-36) U/L ALT 22 (4-34) U/L Alkaline Phosphatase 62 (38-126) U/L Total Protein 6.7 (6.3-8.2) g/dL Albumin 4.1 (3.5-5.0) g/dL Influenza Type A (PCR) Not Detected (Not Detectd) Influenza Type B (PCR) Not Detected (Not Detectd) RSV (PCR) Not Detected (Not Detectd) SARS-CoV-2 (PCR) Not Detected (Not Detectd) Disposition Clinical Impression: Dizziness Disposition: HOME SELF-CARE Condition: Good Instructions (If sedation given, give patient instructions): Dizziness (ED) Is patient prescribed a controlled substance at d/c from ED?: No Referrals: Mitch Hayes DO [Primary Care Provider] - 1-2 days Time of Disposition: 12:02
[2023-08-27] MEDS: ONDANSETRON 4 MG/2 ML VIAL IVP STA (10:57)
[2023-08-27] MEDS: SODIUM CHLORIDE 0.9% 1,000 ML IV STA (10:58)
[2023-08-27 11:00] LABS: Basophils % (A) 0 %; Eosinophils # (A) 0.1 k/uL (0-0.7); Eosinophils % (A) 2 %; HCT 39.8 % (34.0-46.0); HGB 13.3 gm/dL (11.4-16.0); Lymphocytes # (A) 1.4 k/uL (1.0-4.8); Lymphocytes % (A) 20 %; MCH 31.2 pg (25.0-35.0); MCHC 33.4 g/dL (31.0-37.0); MCV 93.5 fL (80.0-100.0); Monocytes # (A) 0.3 k/uL (0-1.0); Monocytes % (A) 5 %; Neutrophils # (A) 4.9 k/uL (1.3-7.7); Neutrophils % (A) 71 %; Platelet Count 310 k/uL (150-450); RBC 4.26 m/uL (3.80-5.40); RDW 15.3 % (11.5-15.5); WBC 6.9 k/uL (3.8-10.6)
[2023-08-27 11:13] LABS: ALT 22 U/L (4-34); African American GFR (CKD) 57 (>60 ml/min/1.73 sqM); Anion Gap 6 mmol/L; Blood Urea Nitrogen 22 mg/dL (7-17); Calcium 9.7 mg/dL (8.4-10.2); Carbon Dioxide 24 mmol/L (22-30); Chloride 106 mmol/L (98-107); Glucose 75 mg/dL (74-99); Non-African American GFR(CKD) 50 (>60 ml/min/1.73 sqM); Sodium 136 mmol/L (137-145); Total Bilirubin 0.8 mg/dL (0.2-1.3)
[2023-08-27 11:18] LABS: AST 47 U/L (14-36); Albumin 4.1 g/dL (3.5-5.0); Alkaline Phosphatase 62 U/L (38-126); Magnesium 1.8 mg/dL (1.6-2.3); Potassium 4.5 mmol/L (3.5-5.1); Total Protein 6.7 g/dL (6.3-8.2)
[2023-08-27 11:32] VITALS: RESP 16
[2023-08-27 12:37] VITALS: BP 144/65; PULSE 52; TEMP 97.8
== END 2023-08-27 12:43 | disposition home or self-care (01) ==
LOC: EC 10:17
DX: R42 Dizziness and giddiness (principal); Z88.8 Allergy status to other drugs, medicaments and biological substances; Z11.52 Encounter for screening for COVID-19
CPT/HCPCS: 36415; 93005; 80053; 83735; 85025; 87636; 99284; 96374; 96361; J2405

== ENCOUNTER 2024-07-22 11:33 | Inpatient (IN) | payer MEDICARE ==
[2024-07-22] MEDS: ASPIRIN 81 MG PO STA (12:08)
[2024-07-22] MEDS: SODIUM CHLORIDE 0.9% 1,000 ML IV STA (12:08)
[2024-07-22 12:11] LABS: Basophils # (A) 0.06 10*3/uL (0.00-0.10); Basophils % (A) 0.9 %; Eosinophils # (A) 0.15 10*3/uL (0.04-0.35); Eosinophils % (A) 2.1 %; HCT 37.1 % (37.2-46.3); HGB 12.5 g/dL (12.0-15.0); Lymphocytes # (A) 1.28 10*3/uL (0.90-5.00); Lymphocytes % (A) 18.3 %; MCH 31.6 pg (27.0-32.0); MCHC 33.7 g/dL (32.0-37.0); MCV 93.7 fL (80.0-97.0); Mean Platelet Volume 9.3 fL (9.5-12.2); Monocytes # (A) 0.55 10*3/uL (0.20-1.00); Monocytes % (A) 7.9 %; Neutrophils # (A) 4.94 10*3/uL (1.80-7.70); Neutrophils % (A) 70.5 %; Platelet Count 240 10*3/uL (140-440); RBC 3.96 10*6/uL (4.10-5.20); RDW 15.1 % (11.5-14.5)
[2024-07-22 12:26] LABS: ALT 20 U/L (4-34); AST 26 U/L (14-36); African American GFR (CKD) 63 (>60 ml/min/1.73 sqM); Albumin 4.2 g/dL (3.5-5.0); Alkaline Phosphatase 73 U/L (38-126); Anion Gap 11 mmol/L; Blood Urea Nitrogen 20 mg/dL (7-17); Calcium 9.7 mg/dL (8.4-10.2); Carbon Dioxide 23 mmol/L (22-30); Chloride 107 mmol/L (98-107); Glucose 87 mg/dL (74-99); Lipase 98 U/L (23-300); Magnesium 1.7 mg/dL (1.6-2.3); Non-African American GFR(CKD) 55 (>60 ml/min/1.73 sqM); Potassium 4.2 mmol/L (3.5-5.1); Sodium 141 mmol/L (137-145); Total Bilirubin 0.5 mg/dL (0.2-1.3); Total Protein 6.6 g/dL (6.3-8.2)
--- NOTE | 2024-07-22 12:30 | ED ---
General Adult HPI - General Chief complaint: Chest Pain Stated complaint: Dizziness,Abn BP Time Seen by Provider: 07/22/24 11:55 Source: patient, RN notes reviewed, old records reviewed Mode of arrival: ambulatory Limitations: no limitations - History of Present Illness Initial comments: Patient is a 78-year-old female who presents emergency department complaint of chest pain. Has been having chest pain on and off for months. Somewhat worse today. States it is intermittent. Believes she has anxiety regarding the chest pain. Has a history of diabetes, hypertension, hyperlipidemia. Is not on any blood thinners. States that there is no known palliative or provocative actions that bring on her symptoms. Describes them as intermittent chest discomfort that last for 1 to 2 minutes at a time. Last occurred approximately an hour ago . States it is a sharp sensation located substernally and also gets a strange sensation in her right arm that she has a hard time describing. She states is like numbness but is not numbness. States she gets anxious when she has it as well. Denies any diaphoresis or nausea or vomiting that coincide with the chest discomfort. He is due to have an outpatient cardiac echo and stress test in August but is concerned that she cannot make it until then which is why she presents for further evaluation. States that she occasionally also has some right-sided jaw pain with it. Currently is asymptomatic. Last round of symptoms occurred approximately 1 hour ago. Has occurred multiple times over the last few months. Presents for further evaluation at this time. - Related Data Home Medications Medication Instructions Recorded Confirmed Ascorbic Acid [Vitamin C] 1,000 mg PO BID 04/25/17 11/27/21 Aspirin 81 mg PO DAILY 04/25/17 11/27/21 Levothyroxine Sodium [Synthroid] 112 mcg PO DAILY@0600 04/25/17 11/27/21 Omeprazole 20 mg PO DAILY@0600 02/05/18 11/27/21 Ezetimibe [Zetia] 10 mg PO DAILY 02/20/21 11/27/21 Indapamide [Lozol] 1.25 mg PO DAILY 02/20/21 11/27/21 Isosorbide Mononitrate ER [Imdur] 30 mg PO DAILY 02/20/21 11/27/21 Multivitamins, Thera [Multivitamin 1 tab PO DAILY 02/20/21 11/27/21 (formulary)] [place]-3 Fatty Acids/Fish Oil [Fish 1 cap PO TID 02/20/21 11/27/21 Oil 1,000 mg Softgel] Zinc 50 mg PO DAILY 02/20/21 11/27/21 allopurinoL [Zyloprim] 100 mg PO DAILY 02/20/21 11/27/21 Cholecalciferol [Vitamin D3 (125 125 mcg PO DAILY 11/23/21 11/27/21 Mcg = 5000 Iu)] Insulin Aspart [NovoLOG Flexpen] 5 units SQ AC-BRKFST 11/23/21 11/27/21 Insulin Glargine,Hum.rec.anlog 30 unit SQ HS 11/23/21 11/27/21 [Lantus Solostar Pen] Levothyroxine Sodium [Synthroid] 50 mcg PO DOHERTY@0600 11/23/21 11/27/21 carvediloL [Coreg] 25 mg PO BID 11/23/21 11/27/21 Previous Rx's Medication Instructions Recorded Acetaminophen Tab [Tylenol] 650 mg PO Q4HR PRN tab 11/28/21 Allergies Allergy/AdvReac Type Severity Reaction Status Date / Time oseltamivir [From Tamiflu] AdvReac Hallucinati Verified 07/22/24 14:11 ons Review of Systems ROS Statement: Those systems with pertinent positive or pertinent negative responses have been documented in the HPI. Review of Systems: CONST: Denies fever EYES: Denies blurry vision ENT: Denies nasal congestion C/V: Denies Chest pain RESP: Denies shortness of breath GI: Denies abdominal pain : Denies dysuria SKIN: Denies rash. MSK: Denies joint pain. NEURO: Denies headache ROS Other: All systems not noted in ROS Statement are negative. 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, UTI years ago, hypothyroid, occasional back pain History of Any Multi-Drug Resistant Organisms: None Reported Past Surgical History: Tubal Ligation Additional Past Surgical History / Comment(s): EGD, colonoscopy, endocapsule Past Anesthesia/Blood Transfusion Reactions: No Reported Reaction Past Psychological History: No Psychological Hx Reported Smoking Status: Never smoker Past Alcohol Use History: None Reported Past Drug Use History: None Reported - Past Family History Father Family Medical History: Coronary Artery Disease (CAD) Mother Family Medical History: Coronary Artery Disease (CAD) Additional Family Medical History / Comment(s): Mother had 4 vessel CABG General Exam - General Exam Comments Initial Comments: General: Appears in no acute distress. HEAD: Normal with no signs of head trauma. EYES: PERRLA, EOMI, conjunctiva normal, no discharge. Pupils are 3 mm and equal bilaterally. ENT: Hearing grossly intact, normal oropharynx. RESPIRATORY: Clear breath sounds bilaterally. No wheezes, rales, or rhonchi. C/V: Regular rate and rhythm. S1 and S2 auscultated, no edema, peripheral pulses 2+ and intact throughout ABD: Abd is soft, nontender, nondistended EXT: Normal range of motion, no obvious deformity SKIN: No rashes or lesions observed on exposed skin. NEURO: Alert and oriented x 4. Cranial nerves II-XII intact. No focal sensory or strength deficits. GCS of 15. NIH of 0 Limitations: no limitations Course Vital Signs 07/22/24 07/22/24 07/22/24 11:35 13:00 13:18 Temperature 98.0 F Pulse Rate 63 56 L 53 L Respiratory 22 18 18 Rate Blood Pressure 194/81 162/70 170/80 O2 Sat by Pulse 97 96 96 Oximetry Medical Decision Making - Medical Decision Making Was pt. sent in by a medical professional or institution (, PA, EXCELSIOR MACHINE FEEDER, urgent care, hospital, or correction...) When possible be specific @ -No Did you speak to anyone other than the patient for history (EMS, parent, family, police, friend...)? What history was obtained from this source @ -No Did you review nursing and triage notes (agree or disagree)? Why? @ -I reviewed and agree with nursing and triage notes Were old charts reviewed (outside hosp., previous admission, EMS record, old E KG, old radiological studies, urgent care reports/EKG's, correction records)? Report findings @ -. Today's EKG compared with EKG from August 2023. No obvious acute significant change. Differential Diagnosis (chest pain, altered mental status, abdominal pain women, abdominal pain men, vaginal bleeding, weakness, fever, dyspnea, syncope, headache, dizziness, GI bleed, back pain, seizure, CVA, palpatations, mental health, musculoskeletal)? @ -Differential Chest Pain: Stable Angina, Unstable Angina, STEMI, NSTEMI Aortic Dissection, Pneumothorax, Musculoskeletal, Esophageal Spasm GERD, Cholecystitis, Pancreatitis, Zoster, this is not meant to be an all-inclusive list. EKG interpreted by me (3pts min.). @ -As above X-rays interpreted by me (1pt min.). @ -Chest x-ray reveals no obvious acute cardiopulmonary process. CT interpreted by me (1pt min.). @ -None done U/S interpreted by me (1pt. min.). @ -None done What testing was considered but not performed or refused? (CT, X-rays, U/S, labs)? Why? @ -None What meds were considered but not given or refused? Why? @ -None Did you discuss the management of the patient with other professionals (professionals i.e. , PA, EXCELSIOR MACHINE FEEDER, lab, RT, psych nurse, social secretary, director alumni relations, teacher, customer service security officer, case resolution specialist)? Give summary @ -No Was smoking cessation discussed for >3mins.? @ -No Was critical care preformed (if so, how long)? @ -No Were there social determinants of health that impacted care today? How? (Homelessness, low income, unemployed, alcoholism, drug addiction, transportation, low edu. Level, literacy, decrease access to med. care, alf, rehab)? @ -No Was there de-escalation of care discussed even if they declined (Discuss DNR or withdrawal of care, Hospice)? DNR status @ -No What co-morbidities impacted this encounter? (DM, HTN, Smoking, COPD, CAD, Cancer, CVA, ARF, Chemo, Hep., AIDS, mental health diagnosis, sleep apnea, morbid obesity)? @ -None Was patient admitted / discharged? Hospital course, mention meds given and route, prescriptions, significant lab abnormalities, going to OR and other pertinent info. @ -Patient presents for resolved chest pain. Vital signs within acceptable limits. Has had episodes multiple times over the last few months. Currently is asymptomatic. Vital signs are within acceptable limits. Patient will be given 324 mg of aspirin. Will obtain cardiac workup. She was in agreement this plan. She is also given IV fluids. EKG shows no signs of acute ischemia. Chest x-ray unremarkable. Repeat EKG unremarkable. Laboratory studies remarkable for undetectable troponin. On reevaluation, patient remains resting comfortably. Patient will be admitted to cardiac observation. She was in agreement this plan. Echo ordered. Consult placed to cardiology. I spoke with the admitting provider, Dr. Peralta who accepted the admission. Undiagnosed new problem with uncertain prognosis? @ -No Drug Therapy requiring intensive monitoring for toxicity (Heparin, Nitro, In sulin, Cardizem)? @ -No Were any procedures done? @ -No Diagnosis/symptom? @ -Chest pain Acute, or Chronic, or Acute on Chronic? @ -Acute Uncomplicated (without systemic symptoms) or Complicated (systemic symptoms)? @ -Complicated Side effects of treatment? @ -None Exacerbation, Progression, or Severe Exacerbation] @ -No Poses a threat to life or bodily function? @ -Potentially, yes - Lab Data Result diagrams: 07/22/24 12:00 07/22/24 12:00 Lab Results 07/22/24 07/22/24 07/22/24 Range/Units 12:00 12:00 12:00 WBC 7.00 (4.50-10.00) 10*3/uL RBC 3.96 L (4.10-5.20) 10*6/uL Hgb 12.5 (12.0-15.0) g/dL Hct 37.1 L (37.2-46.3) % MCV 93.7 (80.0-97.0) fL MCH 31.6 (27.0-32.0) pg MCHC 33.7 (32.0-37.0) g/dL Plt Count 240 (140-440) 10*3/uL MPV 9.3 L (9.5-12.2) fL Immature Gran % (Auto) 0.3 % Neutrophils % 70.5 % Lymphocytes % 18.3 % Monocytes % 7.9 % Eosinophils % 2.1 % Basophils % 0.9 % Immature Gran # 0.02 (0.00-0.04) 10*3/uL Neutrophils # 4.94 (1.80-7.70) 10*3/uL Lymphocytes # 1.28 (0.90-5.00) 10*3/uL Monocytes # 0.55 (0.20-1.00) 10*3/uL Eosinophils # 0.15 (0.04-0.35) 10*3/uL Basophils # 0.06 (0.00-0.10) 10*3/uL PT 10.2 (10.0-12.5) sec INR 0.9 (<1.2) APTT 24.4 (22.0-30.0) sec Sodium 141 (137-145) mmol/L Potassium 4.2 (3.5-5.1) mmol/L Chloride 107 (98-107) mmol/L Carbon Dioxide 23 (22-30) mmol/L Anion Gap 11 mmol/L BUN 20 H (7-17) mg/dL Creatinine 1.00 (0.52-1.04) mg/dL Est GFR (CKD-EPI)AfAm 63 (>60 ml/min/1.73 sqM) Est GFR (CKD-EPI)NonAf 55 (>60 ml/min/1.73 sqM) Glucose 87 (74-99) mg/dL Calcium 9.7 (8.4-10.2) mg/dL Magnesium 1.7 (1.6-2.3) mg/dL Total Bilirubin 0.5 (0.2-1.3) mg/dL AST 26 (14-36) U/L ALT 20 (4-34) U/L Alkaline Phosphatase 73 (38-126) U/L Troponin I (0.000-0.034) ng/mL NT-Pro-B Natriuret Pep 149 pg/mL Total Protein 6.6 (6.3-8.2) g/dL Albumin 4.2 (3.5-5.0) g/dL Lipase 98 (23-300) U/L 07/22/24 Range/Units 12:00 WBC (4.50-10.00) 10*3/uL RBC (4.10-5.20) 10*6/uL Hgb (12.0-15.0) g/dL Hct (37.2-46.3) % MCV (80.0-97.0) fL MCH (27.0-32.0) pg MCHC (32.0-37.0) g/dL Plt Count (140-440) 10*3/uL MPV (9.5-12.2) fL Immature Gran % (Auto) % Neutrophils % % Lymphocytes % % Monocytes % % Eosinophils % % Basophils % % Immature Gran # (0.00-0.04) 10*3/uL Neutrophils # (1.80-7.70) 10*3/uL Lymphocytes # (0.90-5.00) 10*3/uL Monocytes # (0.20-1.00) 10*3/uL Eosinophils # (0.04-0.35) 10*3/uL Basophils # (0.00-0.10) 10*3/uL PT (10.0-12.5) sec INR (<1.2) APTT (22.0-30.0) sec Sodium (137-145) mmol/L Potassium (3.5-5.1) mmol/L Chloride (98-107) mmol/L Carbon Dioxide (22-30) mmol/L Anion Gap mmol/L BUN (7-17) mg/dL Creatinine (0.52-1.04) mg/dL Est GFR (CKD-EPI)AfAm (>60 ml/min/1.73 sqM) Est GFR (CKD-EPI)NonAf (>60 ml/min/1.73 sqM) Glucose (74-99) mg/dL Calcium (8.4-10.2) mg/dL Magnesium (1.6-2.3) mg/dL Total Bilirubin (0.2-1.3) mg/dL AST (14-36) U/L ALT (4-34) U/L Alkaline Phosphatase (38-126) U/L Troponin I <0.012 (0.000-0.034) ng/mL NT-Pro-B Natriuret Pep pg/mL Total Protein (6.3-8.2) g/dL Albumin (3.5-5.0) g/dL Lipase (23-300) U/L - EKG Data -: EKG Interpreted by Me EKG Comments: 12-lead Electrocardiogram Interpretation Note EKG was reviewed and interpreted by myself. 12-lead ECG performed at 1151 is interpreted by me as revealing sinus bradycardia at a rate of 56 beats per minute. [place] is normal. ID interval is 162 ms, QRS duration is 94 ms, QTc is 402 ms.. There were no ST or T wave abnormalities to suggest myocardial i schemia or injury. R wave progression across the precordium was satisfactory. By my interpretation this EKG is non-diagnostic for acute ischemia. 12-lead Electrocardiogram Interpretation Note EKG was reviewed and interpreted by myself. 12-lead ECG performed at 1357 is interpreted by me as revealing sinus bradycardia at a rate of 52 beats per minute. [place] is normal. ID interval is 163 ms, QRS duration is 86 ms, QTc is 414 ms.. There were no ST or T wave abnormalities to suggest myocardial ischemia or injury. R wave progression across the precordium was satisfactory. By my interpretation this EKG is non-diagnostic for acute ischemia. Disposition Clinical Impression: Chest pain Disposition: ADMITTED IP TO THIS HOSP Condition: Stable Referrals: Mitch Hayes DO [Primary Care Provider] - 1-2 days Time of Disposition: 13:30
[2024-07-22 12:34] LABS: NT-Pro-B-Type Natriuretic Pept 149 pg/mL
[2024-07-22 12:40] LABS: INR 0.9 (<1.2); Partial Thromboplastin Time 24.4 sec (22.0-30.0); Prothrombin Time 10.2 sec (10.0-12.5)
--- NOTE | 2024-07-22 12:46 | XR ---
EXAMINATION TYPE: XR chest 2V DATE OF EXAM: 07/22/2024 12:37 PM COMPARISON: 02/27/2022 CLINICAL INDICATION: Female, 78 years old with history of Chest Pain; TECHNIQUE: XR chest 2V Frontal and lateral views of the chest. FINDINGS: Lungs/Pleura: There is no evidence of pleural effusion, focal consolidation, or pneumothorax. Pulmonary vascularity: Unremarkable. Heart/mediastinum: Cardiomediastinal silhouette is unremarkable. Musculoskeletal: No acute osseous pathology. IMPRESSION: No acute cardiopulmonary disease/process. [facility], , 07/22/2024 12:44 PM
--- NOTE | 2024-07-22 13:23 | P.HPIM ---
History of Present Illness H&P Date: 07/22/24 History of Presenting Illness: Patient is a very pleasant 78-year-old female with a past medical history of hypertension, hyperlipidemia, hypothyroidism, insulin-dependent diabetes mellitus, brain meningioma, carotid stenosis, and obstructive sleep apnea CPAP dependent nightly. She presented to the emergency department with a chief complaint of chest pain. Patient reports experiencing intermittent chest pain off and on for the last couple of months but states today it seemed much worse. When asked to describe patient states she is having a difficult time describing stating it feels like a flushing sensation or heaviness throughout her midsternal chest. She reports today she came to the emergency department because the pain extended up into her right lower jaw and down her right arm. She reports this pain continues to be intermittent waxing and waning. She denies anything making it better or worse. She denies experiencing a headache, lightheadedness, dizziness, fevers, chills, diaphoresis, palpitations, shortness of breath, cough or congestion, nausea or vomiting, or noticing any swelling/tingling/numbness/weakness in her lower extremities. Patient currently reports this pain is subsided at the moment. Upon arrival to our facility, patient underwent evaluation in the emergency department. Vital signs upon show blood pressure 194/81, heart rate 63, respiratory rate 22, temp 98.0 F, and SpO2 of 97% on room air. EKG completed showing sinus bradycardia at 56 bpm with no significant T wave or ST abnormality showing no signs of acute ischemia upon personal review and interpretation. Chest x-ray completed negative for acute cardiopulmonary process. Labs completed and reviewed. CBC showing a low hematocrit of 37.1 and MPV of 9.3 otherwise normal findings. Coagulation profile unremarkable. CBC showing prerenal azotemia with BUN of 20 otherwise normal findings. Blood glucose 87. Magnesium slightly low 1.7. Liver profile unremarkable. Lipase normal findings at 98. Troponin was negative at less than 0.012. proBNP 149. Patient admitted under services with consultation to cardiology. Review of systems: Pertinent positives and negatives as discussed in HPI, a complete review of systems was performed and all other systems are negative. Physical exam: Vital signs reviewed and stable. General: Nontoxic, no distress and appears stated age. Derm: Skin warm and dry, normal coloration for ethnicity. Head: Atraumatic, normocephalic and symmetric. Eyes: EOM's intact, no lid lag, and anicteric sclera Mouth: no lip lesions, mucus membranes moist Cardiovascular: regular rate and rhythm with normal S1S2, no murmur, positive posterior tibial pulses bilaterally, and cap refill < 2 seconds. Lungs: Respirations even, regular, and unlabored on room air. Lungs CTA bilaterally, no rhonchi, no rales, no wheezing, and no accessory muscle usage. Abdominal: soft, nontender to palpation, no guarding, no appreciable organomegaly Ext: ROM intact. No gross muscle atrophy, scant bilateral lower extremity edema, no contractures Neuro: Speech clear, face symmetrical and CN II-XII grossly intact with no noted focal neuro deficits Psych: Alert and oriented to person, place, time, and situation. Appropriate and pleasant affect. Assessment and Plan of Care: Chest pain, rule out acute coronary event Hypertension Hyperlipidemia -Cardiology consulted, appreciate recommendations -Telemetry monitoring -Trend troponins -Cardiac diet, NPO at midnight -Aspirin 81 mg daily, atorvastatin 40 mg nightly, Zetia 10 mg nightly, carvedilol 25 mg twice daily, and losartan 100 mg daily -Echocardiogram Hypothyroidism Continue daily medication regimen with levothyroxine 112 mcg daily and 162 mcg on Sundays. Insulin-dependent diabetes mellitus Patient to continue Lantus 29 units nightly and has been placed on glycemic protocol with Humalog sliding scale. Obstructive sleep apnea Continue CPAP nightly and while napping. Data and imaging reviewed: As stated above in HPI The patient is admitted with an anticipated less than 2 midnight stay for evaluation of chest pain CODE STATUS: Full code DVT prophylaxis: Heparin Discussed with: Patient, patient's family members at bedside, RN, and ED physician Anticipated discharge date: Pending clinical course, likely 24 to [address]: Home Patient was seen independently by Nurse Practitioner. This document was prepared using [employer] dictation software. Please allow for er rors in parts counterperson while rare they do occur. Arvind Maldonado NP rendered care for this patient independently, reviewed the findings and plan as documented in the note above and agree with plan. I did not physically speak with or examine the patient on this date. Past Medical History Past Medical History: Diabetes Mellitus, GERD/Reflux, Hyperlipidemia, Hype rtension, Osteoarthritis (OA), Sleep Apnea/CPAP/BIPAP, Thyroid Disorder, Vascular Disorder Additional Past Medical History / Comment(s): IDDM type II, past anemia with extensive workup-no cause found, JUSTICE with Cpap, brain meningioma, 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, UTI years ago, hypothyroid, occasional back pain History of Any Multi-Drug Resistant Organisms: None Reported Past Surgical History: Tubal Ligation Additional Past Surgical History / Comment(s): EGD, colonoscopy, endocapsule Past Anesthesia/Blood Transfusion Reactions: No Reported Reaction Past Psychological History: No Psychological Hx Reported Smoking Status: Never smoker Past Alcohol Use History: None Reported Past Drug Use History: None Reported - Past Family History Father Family Medical History: Coronary Artery Disease (CAD) Mother Family Medical History: Coronary Artery Disease (CAD) Additional Family Medical History / Comment(s): Mother had 4 vessel CABG Medications and Allergies Home Medications Medication Instructions Recorded Confirmed Type Aspirin 81 mg PO DAILY 04/25/17 07/22/24 History Levothyroxine Sodium [Synthroid] 112 mcg PO DAILY@0600 04/25/17 07/22/24 History Omeprazole 20 mg PO DAILY@1800 02/05/18 07/22/24 History Ezetimibe [Zetia] 10 mg PO HS 02/20/21 07/22/24 History Indapamide [Lozol] 1.25 mg PO MOWEFR 02/20/21 07/22/24 History Isosorbide Mononitrate ER [Imdur] 30 mg PO HS 02/20/21 07/22/24 History Multivitamins, Thera [Multivitamin 1 tab PO DAILY 02/20/21 07/22/24 History (formulary)] [place]-3 Fatty Acids/Fish Oil [Fish 1 cap PO BID 02/20/21 07/22/24 History Oil 1,000 mg Softgel] allopurinoL [Zyloprim] 100 mg PO DAILY 02/20/21 07/22/24 History Insulin Glargine,Hum.rec.anlog 29 unit SQ HS 11/23/21 07/22/24 History [Lantus Solostar Pen] Levothyroxine Sodium [Synthroid] 50 mcg PO DOHERTY@0600 11/23/21 07/22/24 History carvediloL [Coreg] 25 mg PO BID 11/23/21 07/22/24 History Gabapentin [Neurontin] 300 mg PO HS 07/22/24 07/22/24 History Glimepiride [Amaryl] 0.5 mg PO AC-BID 07/22/24 07/22/24 History Losartan Potassium 100 mg PO DAILY 07/22/24 07/22/24 History Methotrexate Sodium 25mg/Ml 25 mg IM MO 07/22/24 07/22/24 History Solution methylPREDNISolone Dose Pack See Taper PO DIRECTED PRN 07/22/24 07/22/24 History [Medrol Dose Pack] Allergies Allergy/AdvReac Type Severity Reaction Status Date / Time oseltamivir [From Tamiflu] AdvReac Hallucinati Verified 07/22/24 14:11 ons Physical Exam Vitals: Vital Signs Temp Pulse Resp BP Pulse Ox 07/22/24 13:18 53 L 18 170/80 96 07/22/24 13:00 56 L 18 162/70 96 07/22/24 11:35 98.0 F 63 22 194/81 97 Intake and Output 07/21/24 07/22/24 07/22/24 22:59 06:59 14:59 Other: Weight 103.419 kg Results CBC & Chem 7: 07/22/24 12:00 07/22/24 12:00 Labs: Abnormal Lab Results - Last 24 Hours (Table) 07/22/24 07/22/24 Range/Units 12:00 12:00 RBC 3.96 L (4.10-5.20) 10*6/uL Hct 37.1 L (37.2-46.3) % MPV 9.3 L (9.5-12.2) fL BUN 20 H (7-17) mg/dL
[2024-07-22] MEDS ORDERED: ONDANSETRON 4 MG/2 ML VIAL IVP PRN (13:39)
[2024-07-22] MEDS ORDERED: NALOXONE 0.4 MG/ML 1 ML VIAL IV PRN (13:39)
[2024-07-22] MEDS ORDERED: DEXTROSE 50% SYRINGE 50 ML IVP PRN ×2 (15:24)
[2024-07-22] MEDS: INSULIN LISPRO (HumaLOG) 100 UNIT/ML 10 mL VL SQ SCH (16:48)
[2024-07-22] MEDS: PANTOPRAZOLE 40 MG TABLET PO SCH (17:32)
[2024-07-22] MEDS: carvediloL 12.5 MG TAB PO SCH (17:33)
[2024-07-22] MEDS: ATORVASTATIN 40 MG TAB PO SCH (20:06)
[2024-07-22 21:02] LABS: Glucose,Whole Blood 92 mg/dL (70-110)
[2024-07-22] MEDS: EZETIMIBE 10 MG TAB PO SCH (21:08)
[2024-07-22] MEDS: GABAPENTIN 300 MG CAP PO SCH (21:08)
[2024-07-22] MEDS: ISOSORBIDE MONONITRATE ER 30 MG TAB.ER.24H PO SCH (21:08)
[2024-07-22] MEDS: HEPARIN SODIUM,PORCINE 5,000 UNIT/ML 1 ML VIAL SQ SCH (21:09)
[2024-07-22] MEDS: INSULIN GLARGINE (LANTUS) 100 UNIT/ML SYR SQ SCH (21:56)
[2024-07-23 06:01] LABS: Glucose,Whole Blood 80 mg/dL (70-110)
[2024-07-23] MEDS: LEVOTHYROXINE 112 MCG TAB PO SCH (06:34)
[2024-07-23] MEDS ORDERED: REGADENOSON 0.4 MG/5 ML SYRINGE IV PRN (07:43)
[2024-07-23] MEDS ORDERED: CAFFEINE CITRATE 60 MG/3 ML VIAL IV PRN (07:43)
[2024-07-23] MEDS ORDERED: AMINOPHYLLINE 500 MG/20 ML VIAL IV PRN (07:43)
--- NOTE | 2024-07-23 07:43 | P.CRDCN ---
History of Present Illness Consult date: 07/23/24 History of present illness: History of Present Illness: The patient is a 78-year-old female with known history of hypertension and diabetes who is followed by Dr. Pederson who presents with symptoms of chest discomfort and right-sided jaw discomfort. In June she had an episode of feeling hot and sweaty while playing cards that resolved with resting and laying down. She was subsequently evaluated by her label stamper and scheduled to undergo a stress test and an echocardiogram soon. Yesterday after watering her plants she felt some discomfort in the chest with some right jaw discomfort that persisted for over half an hour, came into the emergency room and subsequently admitted. She is relatively active but limited by her hip discomfort. She denies any exertional chest discomfort, dyspnea on exertion, dizziness or palpitations on a regular basis. She has no PND, orthopnea or peripheral edema. On presentation she was in sinus mechanism and her troponin was normal. She is pain-free at this point. She had a cardiac catheterization about 5 years ago that was reported to be normal. Medications: Amaryl, Neurontin, losartan 100 mg daily, ezetimibe 10 mg daily, Coreg 25 mg twice a day, isosorbide mononitrate 30 mg daily, insulin, levothyroxine, aspirin Review of Systems: Respiratory: No history of asthma, bronchitis or recent cough. GI: No nausea or vomiting . No history of peptic ulcer disease. No recent GI bleed. She has a prior history of reflux : No hematuria or dysuria. Nervous System: No stroke or seizure. Physical Examination: 28-year-old female, alert oriented no apparent distress,Blood pressure 135/60, Heart rate 60 Head: Normocephalic. Eyes: Sclerae nonicteric. Neck: Good carotid upstroke, no bruit, no jugular venous distention. Lungs: Clear to auscultation. Heart: Regular rate and rhythm, S1-S2, no S3, no rub. Systolic ejection murmur, 2/6 at the base Abdomen: Soft nontender, positive bowel sounds no organomegaly. Extremities: No edema, intact distal pulses. Labs: BUN 20, creatinine 1.0. Hemoglobin 12.5. Troponin less than 0.012. Chest x- ray with no acute infiltrate EKG: Sinus mechanism with no acute ST segment changes Impression: 1. Chest discomfort of unclear etiology, no evidence of acute coronary syndrome 2. History of hypertension 3. History of hyperlipidemia 4. History of diabetes Plan: 1. Obtain an echocardiogram with Doppler 2. Obtain a nuclear imaging stress test 3. Continue present therapy 4. Depending on the results of her stress test further recommendations will be made 5. Thank you for this consult we will follow with you. 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, UTI years ago, hypothyroid, occasional back pain History of Any Multi-Drug Resistant Organisms: None Reported Past Surgical History: Tubal Ligation Additional Past Surgical History / Comment(s): EGD, colonoscopy, endocapsule Past Anesthesia/Blood Transfusion Reactions: No Reported Reaction Past Psychological History: No Psychological Hx Reported Smoking Status: Never smoker Past Alcohol Use History: None Reported Past Drug Use History: None Reported - Past Family History Father Family Medical History: Coronary Artery Disease (CAD) Mother Family Medical History: Coronary Artery Disease (CAD) Additional Family Medical History / Comment(s): Mother had 4 vessel CABG Medications and Allergies Home Medications Medication Instructions Recorded Confirmed Type Aspirin 81 mg PO DAILY 04/25/17 07/22/24 History Levothyroxine Sodium [Synthroid] 112 mcg PO DAILY@0600 04/25/17 07/22/24 History Omeprazole 20 mg PO DAILY@1800 02/05/18 07/22/24 History Ezetimibe [Zetia] 10 mg PO HS 02/20/21 07/22/24 History Indapamide [Lozol] 1.25 mg PO MOWEFR 02/20/21 07/22/24 History Isosorbide Mononitrate ER [Imdur] 30 mg PO HS 02/20/21 07/22/24 History Multivitamins, Thera [Multivitamin 1 tab PO DAILY 02/20/21 07/22/24 History (formulary)] [place]-3 Fatty Acids/Fish Oil [Fish 1 cap PO BID 02/20/21 07/22/24 History Oil 1,000 mg Softgel] allopurinoL [Zyloprim] 100 mg PO DAILY 02/20/21 07/22/24 History Insulin Glargine,Hum.rec.anlog 29 unit SQ HS 11/23/21 07/22/24 History [Lantus Solostar Pen] Levothyroxine Sodium [Synthroid] 50 mcg PO DOHERTY@0600 11/23/21 07/22/24 History carvediloL [Coreg] 25 mg PO BID 11/23/21 07/22/24 History Gabapentin [Neurontin] 300 mg PO HS 07/22/24 07/22/24 History Glimepiride [Amaryl] 0.5 mg PO AC-BID 07/22/24 07/22/24 History Losartan Potassium 100 mg PO DAILY 07/22/24 07/22/24 History Methotrexate Sodium 25mg/Ml 25 mg IM MO 07/22/24 07/22/24 History Solution methylPREDNISolone Dose Pack See Taper PO DIRECTED PRN 07/22/24 07/22/24 History [Medrol Dose Pack] Allergies Allergy/AdvReac Type Severity Reaction Status Date / Time oseltamivir [From Tamiflu] AdvReac Hallucinati Verified 07/22/24 14:11 ons Physical Exam Vitals: Vital Signs Temp Pulse Pulse Resp BP BP Pulse Ox 07/23/24 07:00 97.5 F L 60 16 135/66 94 L 07/23/24 02:00 97.7 F 58 L 17 162/73 94 L 07/23/24 00:30 67 18 153/85 97 07/22/24 20:00 67 18 151/73 94 L 07/22/24 16:38 51 L 18 170/71 98 07/22/24 13:18 53 L 18 170/80 96 07/22/24 13:00 56 L 18 162/70 96 07/22/24 11:35 98.0 F 63 22 194/81 97 Intake and Output 07/22/24 07/23/24 07/23/24 22:59 06:59 14:59 Other: Voiding Method Toilet # Voids 1 Weight 103.419 kg Results 07/22/24 12:00 07/22/24 12:00 Cardiac Enzymes 07/22/24 07/22/24 07/22/24 Range/Units 12:00 12:00 14:44 AST 26 (14-36) U/L Troponin I <0.012 <0.012 (0.000-0.034) ng/mL 07/22/24 Range/Units 17:50 AST (14-36) U/L Troponin I <0.012 (0.000-0.034) ng/mL Coagulation 07/22/24 Range/Units 12:00 PT 10.2 (10.0-12.5) sec APTT 24.4 (22.0-30.0) sec CBC 07/22/24 Range/Units 12:00 WBC 7.00 (4.50-10.00) 10*3/uL RBC 3.96 L (4.10-5.20) 10*6/uL Hgb 12.5 (12.0-15.0) g/dL Hct 37.1 L (37.2-46.3) % Plt Count 240 (140-440) 10*3/uL Comprehensive Metabolic Panel 07/22/24 Range/Units 12:00 Sodium 141 (137-145) mmol/L Potassium 4.2 (3.5-5.1) mmol/L Chloride 107 (98-107) mmol/L Carbon Dioxide 23 (22-30) mmol/L BUN 20 H (7-17) mg/dL Creatinine 1.00 (0.52-1.04) mg/dL Glucose 87 (74-99) mg/dL Calcium 9.7 (8.4-10.2) mg/dL AST 26 (14-36) U/L ALT 20 (4-34) U/L Alkaline Phosphatase 73 (38-126) U/L Total Protein 6.6 (6.3-8.2) g/dL Albumin 4.2 (3.5-5.0) g/dL Current Medications Generic Name Dose Route Start Last Admin Trade Name Freq PRN Reason Stop Dose Admin Allopurinol 100 mg 07/23/24 09:00 Allopurinol 100 Mg Tab PO DAILY [facility] Aspirin 81 mg 07/23/24 09:00 Aspirin 81 Mg PO DAILY [facility] Atorvastatin Calcium 40 mg 07/22/24 21:00 07/22/24 20:06 Atorvastatin 40 Mg Tab PO Not Given HS [facility] Carvedilol 25 mg 07/22/24 17:30 07/22/24 17:33 Carvedilol 12.5 Mg Tab PO 25 mg AC-BID DAPHNE Administration Dextrose/Water 25 ml 07/22/24 15:24 Dextrose 50% Syringe 50 Ml IVP PER PROTOCOL PRN Hypoglycemia Protocol Dextrose/Water 50 ml 07/22/24 15:24 Dextrose 50% Syringe 50 Ml IVP PER PROTOCOL PRN Hypoglycemia Protocol Ezetimibe 10 mg 07/22/24 21:00 07/22/24 21:08 Ezetimibe 10 Mg Tab PO 10 mg HS DAPHNE Administration Gabapentin 300 mg 07/22/24 21:00 07/22/24 21:08 Gabapentin 300 Mg Cap PO 300 mg HS DAPHNE Administration Heparin Sodium (Porcine) 5,000 unit 07/22/24 21:00 07/22/24 21:09 Heparin Sodium,Porcine 5,000 Unit/Ml 1 Ml Vial SQ 5,000 unit Q12HR DAPHNE Administration Insulin Glargine 29 unit 07/22/24 21:00 07/22/24 21:56 Insulin Glargine (Lantus) 100 Unit/Ml Syr SQ 29 unit HS DAPHNE Administration Insulin Human Lispro 0 unit 07/22/24 17:30 07/23/24 06:11 Insulin Lispro (Humalog) 100 Unit/Ml 10 Ml Vl SQ Not Given ACHS [facility] Protocol Isosorbide Mononitrate 30 mg 07/22/24 21:00 07/22/24 21:08 Isosorbide Mononitrate Er 30 Mg Tab.Er.24h PO 30 mg HS DAPHNE Administration Levothyroxine Sodium 50 mcg 07/27/24 06:00 Levothyroxine 50 Mcg Tab PO DOHERTY@0600 [facility] Levothyroxine Sodium 112 mcg 07/23/24 06:00 07/23/24 06:34 Levothyroxine 112 Mcg Tab PO 112 mcg DAILY@0600 DAPHNE Administration Losartan Potassium 100 mg 07/23/24 09:00 Losartan 50 Mg Tab PO DAILY [facility] Multivitamins 1 each 07/23/24 09:00 Multivitamins, Thera 1 Each Tab PO DAILY [facility] Naloxone HCl 0.2 mg 07/22/24 13:39 Naloxone 0.4 Mg/Ml 1 Ml Vial IV Q2M PRN Opioid Reversal Ondansetron HCl 4 mg 07/22/24 13:39 Ondansetron 4 Mg/2 Ml Vial IVP Q8HR PRN Nausea And Vomiting Pantoprazole Sodium 40 mg 07/22/24 18:00 07/22/24 17:32 Pantoprazole 40 Mg Tablet PO 40 mg DAILY@1800 [facility] Administration Intake and Output 07/22/24 07/23/24 07/23/24 22:59 06:59 14:59 Other: Voiding Method Toilet # Voids 1 Weight 103.419 kg 07/22/24 12:00 07/22/24 12:00
[2024-07-23 08:06] LABS: Basophils # (A) 0.03 X 10*3/uL (0.00-0.10); Basophils % (A) 0.4 %; Eosinophils # (A) 0.19 X 10*3/uL (0.04-0.35); Eosinophils % (A) 2.4 %; HCT 33.8 % (37.2-46.3); HGB 11.1 g/dL (12.0-15.0); Lymphocytes # (A) 2.27 X 10*3/uL (0.90-5.00); Lymphocytes % (A) 28.6 %; MCH 31.1 pg (27.0-32.0); MCHC 32.8 g/dL (32.0-37.0); MCV 94.7 FL (80.0-97.0); Mean Platelet Volume 9.5 FL (9.5-12.2); Monocytes % (A) 7.6 %; NRBC Per 100 WBC 0 X 10*3/uL (0.00-0.01); Neutrophils # (A) 4.83 X 10*3/uL (1.80-7.70); Neutrophils % (A) 60.7 %; Platelet Count 218 X 10*3/uL (140-440); RBC 3.57 X 10*6/uL (4.10-5.20); RDW 15.5 % (11.5-14.5); WBC 7.94 X 10*3/uL (4.50-10.00)
[2024-07-23 08:26] LABS: ALT 22 U/L (8-44); AST 24 U/L (13-35); Albumin 3.7 g/dL (3.8-4.9); Albumin/Globulin Ratio 2.06 Ratio (1.60-3.17); Alkaline Phosphatase 63 U/L (41-126); Blood Urea Nitrogen 19.2 mg/dL (9.0-27.0); Calcium 8.7 mg/dL (8.7-10.3); Carbon Dioxide 22.7 mmol/L (21.6-31.8); Chloride 111 mmol/L (96-109); Globulin 1.8 g/dL (1.6-3.3); Glucose 90 mg/dL (70-110); Potassium 3.9 mmol/L (3.5-5.5); Sodium 144 mmol/L (135-145); Total Bilirubin 0.3 mg/dL (0.3-1.2); Total Protein 5.5 g/dL (6.2-8.2)
[2024-07-23] MEDS: allopurinoL 100 MG TAB PO SCH (08:49)
[2024-07-23] MEDS: MULTIVITAMINS, THERA 1 EACH TAB PO SCH (08:49)
[2024-07-23] MEDS: LOSARTAN 50 MG TAB PO SCH (08:49)
[2024-07-23] MEDS: ASPIRIN 81 MG PO SCH (08:49)
[2024-07-23 11:45] LABS: Glucose,Whole Blood 102 mg/dL (70-110)
--- NOTE | 2024-07-23 12:16 | NM ---
EXAMINATION TYPE: NM stress lexiscan cardiolite DATE OF EXAM: 07/23/2024 COMPARISON: NONE CLINICAL INDICATION: Female, 78 years old with history of chest pain, TECHNIQUE: After the intravenous administration of 10.5 mCi Tc 99m Sestamibi - Cardiolite resting SP ECT images acquired 45 minutes post injection. At peak stress 25.4 mCi Tc 99m Sestamibi - Stress images obtained 30 minutes post injection The patient was stressed with 0.4mg Lexiscan. FINDINGS: There is diminished radiotracer accumulation on the stress images along the inferior lateral wall fro m the midportion towards the cardiac apex. This area has improved radiotracer on the resting images. This area may be somewhat under estimated on the polar maps but is present. Wall motion is normal. Ejection fraction is calculated to be 65 %. IMPRESSION: 1. Mild to moderate Stress-induced ischemic change along the inferior lateral wall midportion towards the cardiac apex.. 2. No fixed defects evident. 3. Normal ejection fraction and wall motion [facility], , 07/23/2024 12:14 PM
[2024-07-23] MEDS ORDERED: NITROGLYCERIN SL TABS 0.4 MG TAB SUBLINGUAL PRN (12:53)
--- NOTE | 2024-07-23 13:32 | P.PN ---
Subjective Progress Note Date: 07/23/24 Hospital course: Patient is a very pleasant 78-year-old female with a past medical history of hypertension, hyperlipidemia, hypothyroidism, insulin-dependent diabetes mellitus, brain meningioma, carotid stenosis, and obstructive sleep apnea CPAP dependent nightly. She presented to the emergency department with a chief complaint of chest pain. Patient reports experiencing intermittent chest pain off and on for the last couple of months but states today it seemed much worse. When asked to describe patient states she is having a difficult time describing stating it feels like a flushing sensation or heaviness throughout her midsternal chest. She reports today she came to the emergency department because the pain extended up into her right lower jaw and down her right arm. She reports this pain continues to be intermittent waxing and waning. She denies anything making it better or worse. She denies experiencing a headache, lightheadedness, dizziness, fevers, chills, diaphoresis, palpitations, shortness of breath, cough or congestion, nausea or vomiting, or noticing any swelling/tingling/numbness/weakness in her lower extremities. Patient currently reports this pain is subsided at the moment. Upon arrival to our facility, patient underwent evaluation in the emergency department. Vital signs upon show blood pressure 194/81, heart rate 63, respiratory rate 22, temp 98.0 F, and SpO2 of 97% on room air. EKG completed showing sinus bradycardia at 56 bpm with no significant T wave or ST abnormality showing no signs of acute ischemia upon personal review and interpretation. Chest x-ray completed negative for acute cardiopulmonary process. Labs completed and reviewed. CBC showing a low hematocrit of 37.1 and MPV of 9.3 otherwise normal findings. Coagulation profile unremarkable. CBC showing prerenal azotemia with BUN of 20 otherwise normal findings. Blood glucose 87. Magnesium slightly low 1.7. Liver profile unremarkable. Lipase normal findings at 98. Troponin was negative at less than 0.012. proBNP 149. Patient admitted under services with consultation to cardiology. Troponins were trended all negative at less than 0.012 x 3 draws. Lexiscan stress test completed showing mild to moderate stress-induced ischemic changes along the inferior lateral wall midportion towards the cardiac apex with no fixed defects evident and reported normal ejection fraction 65% and wall motion. Physical exam: Patient was seen and fully evaluated at 11:30 am in room 630 upon returning from Lexiscan stress test. She reports currently not experiencing any chest pain or discomfort, only mild anxiety regarding waiting for stress test results. She denies having any dizziness, lightheadedness, shortness of breath, or any other complaints at this time. Vital signs reviewed and stable. General: Nontoxic, no distress and appears stated age. Derm: Skin warm and dry, normal coloration for ethnicity. Head: Atraumatic, normocephalic and symmetric. Eyes: EOM's intact, no lid lag, and anicteric sclera Mouth: no lip lesions, mucus membranes moist Cardiovascular: regular rate and rhythm with normal S1S2, no murmur, positive posterior tibial pulses bilaterally, and cap refill < 2 seconds. Lungs: Respirations even, regular, and unlabored on room air. Lungs CTA bilaterally, no rhonchi, no rales, no wheezing, and no accessory muscle usage. Abdominal: soft, nontender to palpation, no guarding, no appreciable or ganomegaly Ext: ROM intact. No gross muscle atrophy, scant bilateral lower extremity edema, no contractures Neuro: Speech clear, face symmetrical and CN II-XII grossly intact with no noted focal neuro deficits Psych: Alert and oriented to person, place, time, and situation. Appropriate and pleasant affect. 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 -Telemetry monitoring -Troponins were trended all negative at less than 0.012 x 3 draws. -Lexiscan stress test completed showing mild to moderate stress-induced ischemic changes along the inferior lateral wall midportion towards the cardiac apex with no fixed defects evident and reported normal ejection fraction 65% and wall motion. -Cardiac diet, NPO at midnight -Aspirin 81 mg daily, atorvastatin 40 mg nightly, Zetia 10 mg nightly, carvedilol 25 mg twice daily, and losartan 100 mg daily -Echocardiogram completed and pending results Hypothyroidism Continue daily medication regimen with levothyroxine 112 mcg daily and 162 mcg on Sundays. Insulin-dependent diabetes mellitus Patient to continue Lantus 29 units nightly and has been placed on glycemic protocol with Humalog sliding scale. Obstructive sleep apnea Continue CPAP nightly and while napping. Data and imaging reviewed: Labs completed and reviewed. Troponins were trended all negative at less than 0.012 x 3 draws. CBC showing stable normocytic anemia with hemoglobin of 11.1. BMP showing mild hyperchloremia with chloride of 111 otherwise normal findings. Blood glucose 128. Hemoglobin A1c 6.1%. Liver profile unremarkable with exception of low total protein of 5.5 and albumin of 3.7 Lexiscan stress test completed showing mild to moderate stress-induced ischemic changes along the inferior lateral wall midportion towards the cardiac apex with no fixed defects evident and reported normal ejection fraction 65% and wall motion. Vital signs reviewed. Blood pressure 135/66, heart rate 60, respiratory rate 16, temp 97.5 F, and SpO2 of 94% on room air CODE STATUS: Full code DVT prophylaxis: Heparin Anticipated discharge date: Pending clinical course Anticipated discharge place: Home Patient was seen independently by Nurse Practitioner. This document was prepared using [employer] dictation software. Please allow for errors in welfare interviewer while rare they do occur. Arvind Maldonado NP rendered care for this patient independently, reviewed the findings and plan as documented in the note above and agree with plan. I did not physically speak with or examine the patient on this date. Objective - Vital Signs Vital signs: Vital Signs Temp 97.5 F L 07/23/24 07:00 Pulse 60 07/23/24 07:00 Resp 16 07/23/24 07:00 BP 135/66 07/23/24 07:00 Pulse Ox 94 L 07/23/24 07:00 FiO2 Intake & Output 07/22/24 07/23/24 07/23/24 18:59 06:59 18:59 Weight 103.419 kg 103.419 kg Other: Voiding Method Toilet Toilet # Voids 1 - Labs CBC & Chem 7: 07/23/24 04:36 07/23/24 04:36 Labs: Abnormal Lab Results - Last 24 Hours (Table) 07/23/24 07/23/24 07/23/24 Range/Units 04:36 04:36 04:36 RBC 3.57 L (4.10-5.20) X 10*6/uL Hgb 11.1 L (12.0-15.0) g/dL Hct 33.8 L (37.2-46.3) % RDW 15.5 H (11.5-14.5) % Chloride 111 H (96-109) mmol/L Est GFR (CKD-EPI) 58 L (>=60) Hemoglobin A1c 6.1 H (<=6.0) % Total Protein 5.5 L (6.2-8.2) g/dL Albumin 3.7 L (3.8-4.9) g/dL
[2024-07-23 17:15] LABS: Glucose,Whole Blood 113 mg/dL (70-110)
--- NOTE | 2024-07-23 19:19 | CA ---
Lexiscan Nuclear Stress Test Report Name: Tawny Keller Exam Date: 07/23/2024 09:48 Exam Location: [place] Stress Ht (in): 67 Wt (lb): 228 BSA: 2.14 Ordering Phys: Grant Hodgson MD Referring Phys: ISIDRO Technologist: Jason Coelho Age: 78 Gender: F : 1945 Procedure CPT: Indications: Reflex order-Stress test ICD-10 Codes: Patient History: CHEST PAIN, HTN, DIABETIC, NUMBNESS IN FACE/NECK, HYPERCHOLESTEROLEMIA, FAMILY HX OF HEART DISEASE, PRIOR HEART CATH Medications: Meds past 24 hrs: Pretest Chest Pain: STRESS TEST Lexiscan Protocol Exercise Duration (min:sec): 02:[address] Depressions (mm): Angina Score: Pineda Score: Resting HR (bpm): 54 Peak HR (bpm): 78 Resting BP (mmHg): 145 / 66 Peak BP (mmHg): 147 / 62 MPHR: 143 Target HR: 122 % MPHR: 55 METS: 1.0 Total Dose: Peak Dose: Atropine: Double Product: 95726 BP Response: Stress Termination: INFUSION COMPLETE Stress Symptoms: NO SYMPTOMS Stress Summary: ECG ANALYSIS Resting ECG: Sinus rhythm. Normal conduction. No arrhythmias. Normal repolarization. Stress ECG: No ECG changes from baseline with Lexiscan infusion. CONCLUSIONS No ECG evidence of ischemia with Lexiscan infusion. Nuclear test results to follow. Dr. Grant Hodgson MD (Electronically Signed) Final Date: 23 July 2024 19:18
--- NOTE | 2024-07-23 19:22 | CA ---
Transthoracic Echo Report Name: Tawny Keller Age: 78 Gender: F : 1945 Exam Date: 07/23/2024 07:47 Exam Location: [place] Echo Ht (in): 67 Wt (lb): 228 Ordering Physician: Iftikhar Short MD Attending/Referring Phys: Payroll Associate Sima Govea RDCS Procedure CPT: Indications: Chest Pain Cardiac Hx: Technical Quality: Fair Contrast 1: Total Dose (mL): Contrast 2: Total Dose (mL): MEASUREMENTS (Male / Female) Normal Values 2D ECHO LV Diastolic Diameter PLAX 4.6 cm 4.2 - 5.9 / 3.9 - 5.3 cm LV Systolic Diameter PLAX 3.8 cm IVS Diastolic Thickness 1.5 cm 0.6 - 1.0 / 0.6 - 0.9 cm LVPW Diastolic Thickness 1.3 cm 0.6 - 1.0 / 0.6 - 0.9 cm LV Relative Wall Thickness 0.6 RV Internal Dim ED PLAX 2.5 cm LVOT Diameter 1.9 cm Aortic Root Diameter 2.9 cm LA Systolic Diameter LX 4.6 cm 3.0 - 4.0 / 2.7 - 3.8 cm LV Diastolic Volume MOD BP 66.6 cm??? 67 - 155 / 56 - 104 cm??? LV Systolic Volume MOD BP 22.2 cm??? 22 - 58 / 19 - 49 cm??? LV Ejection Fraction MOD BP 66.7 % >= 55 % LV Cardiac Index MOD BP 1123.2 cm???/min???m??? LV Diastolic Volume MOD 4C 62.9 cm??? LV Systolic Volume MOD 4C 23.3 cm??? LV Ejection Fraction MOD 4C 63.0 % LV Cardiac Index MOD 4C 1003.8 cm???/min???m??? LV Diastolic Length 4C 7.0 cm LV Systolic Length 4C 6.0 cm LV Diastolic Volume MOD 2C 66.1 cm??? LV Systolic Volume MOD 2C 20.0 cm??? LV Ejection Fraction MOD 2C 69.8 % LV Cardiac Index MOD 2C 1166.5 cm???/min???m??? LV Diastolic Length 2C 6.5 cm LV Systolic Length 2C 5.4 cm M-MODE Aortic Root Diameter MM 2.9 cm LA Systolic Diameter MM 4.8 cm LA Ao Ratio MM 1.6 AV Cusp Separation MM 1.7 cm DOPPLER AV Peak Velocity 89.3 cm/s AV Peak Gradient 3.2 mmHg AV Mean Velocity 117.4 cm/s AV Mean Gradient 6.2 mmHg AV Velocity Time Integral 48.7 cm Mitral E Point Velocity 124.5 cm/s Mitral A Point Velocity 129.6 cm/s Mitral E to A Ratio 1.0 MV Deceleration Time 210.5 ms MV E' Velocity 6.9 cm/s Mitral E to MV E' Ratio 18.0 TR Peak Velocity 244.8 cm/s TR Peak Gradient 24.0 mmHg Right Ventricular Systolic Press 34.0 mmHg FINDINGS Left Ventricle Left ventricular ejection fraction is estimated at 55-60 %.Normal left ventricular systolic function with no obvious regional wall motion abnormalities. Left ventricular cavity size normal. Moderately increased left ventricular wall thickness. Right Ventricle Normal right ventricular size and function. Right ventricular systolic pressure within normal limits. Right Atrium Mild right atrial dilatation. Left Atrium Moderately increased left atrial diameter. Mitral Valve Mitral valve thickened. Moderate mitral regurgitation. No mitral stenosis.mitral annular calcification. Aortic Valve Trileaflet aortic valve. No aortic valve stenosis or regurgitation. Diffuse thickening (sclerosis) of the aortic valve cusps without reduced excursion. Tricuspid Valve Structurally normal tricuspid valve. Mild tricuspid regurgitation. No tricuspid stenosis. Pulmonic Valve Structurally normal pulmonic valve. No pulmonic stenosis. Mild pulmonic regurgitation. Pericardium Small- Moderate pericardial effusion. No pleural effusion. Aorta Normal size aortic root and proximal ascending aorta. CONCLUSIONS 1. Normal left ventricular size and systolic function 2. Moderate mitral regurgitation 3. Mild tricuspid regurgitation 4. Mild to moderate pericardial effusion with no evidence of tamponade Previewed by: Dr. Grant Hodgson MD (Electronically Signed) Final Date: 23 July 2024 19:21
[2024-07-23 20:32] LABS: Glucose,Whole Blood 91 mg/dL (70-110)
[2024-07-23] MEDS: ALPRAZolam 0.5 MG TAB PO PRN (22:55)
[2024-07-23] MEDS: SODIUM CHLORIDE 0.9% 1,000 ML in EMPTY BAG 1 BAG IV SCH (22:56)
[2024-07-24 06:10] LABS: Glucose,Whole Blood 112 mg/dL (70-110)
[2024-07-24] MEDS: ASPIRIN 325 MG TAB PO ONE (06:28)
[2024-07-24] MEDS: ATORVASTATIN 80 MG TAB PO ONE (06:28)
[2024-07-24 08:37] LABS: Blood Urea Nitrogen 19.2 mg/dL (9.0-27.0); Calcium 8.5 mg/dL (8.7-10.3); Carbon Dioxide 22.8 mmol/L (21.6-31.8); Chloride 111 mmol/L (96-109); Glucose 121 mg/dL (70-110); Magnesium 1.7 mg/dL (1.5-2.4); Potassium 3.9 mmol/L (3.5-5.5); Sodium 144 mmol/L (135-145)
[2024-07-24 08:53] LABS: MCHC 32.4 g/dL (32.0-37.0); MCV 95.8 FL (80.0-97.0); Mean Platelet Volume 9.9 FL (9.5-12.2); NRBC Per 100 WBC 0 X 10*3/uL (0.00-0.01); Platelet Count 221 X 10*3/uL (140-440); RBC 3.55 X 10*6/uL (4.10-5.20); RDW 15.4 % (11.5-14.5); WBC 6.36 X 10*3/uL (4.50-10.00)
[2024-07-24] MEDS: ALPRAZolam 0.25 MG TAB PO PRN (09:20)
--- NOTE | 2024-07-24 10:51 | P.PN ---
Subjective HISTORY OF PRESENT ILLNESS: The patient is a 78-year-old female with known history of hypertension and diabetes who is followed by Dr. Pederson who presents with symptoms of chest discomfort and right-sided jaw discomfort. In June she had an episode of feeling hot and sweaty while playing cards that resolved with resting and laying down. She was subsequently evaluated by her qm nurse and scheduled to undergo a stress test and an echocardiogram soon. Yesterday after watering her plants she felt some discomfort in the chest with some right jaw discomfort that persisted for over half an hour, came into the emergency room and subsequently admitted. She is relatively active but limited by her hip discomfort. She denies any exertional chest discomfort, dyspnea on exertion, dizziness or palpitations on a regular basis. She has no PND, orthopnea or peripheral edema. On presentation she was in sinus mechanism and her troponin was normal. She is pain-free at this point. She had a cardiac catheterization about 5 years ago that was reported to be normal. Medications: Amaryl, Neurontin, losartan 100 mg daily, ezetimibe 10 mg daily, Coreg 25 mg twice a day, isosorbide mononitrate 30 mg daily, insulin, levothyroxine, aspirin 07/24/2024 Patient is status post Lexiscan stress test yesterday revealing stress-induced ischemic changes along inferior lateral wall midportion towards the cardiac apex. No fixed defects evident. Echocardiogram completed revealing ejection fraction 55 to 60%, moderate MR, mild TR, mild to moderate pericardial effusion with no evidence of tamponade. Patient examined this morning at bedside. She denies any further episodes of chest pain or pressure. She denies shortness of breath. Vital signs are stable. PHYSICAL EXAM: VITAL SIGNS: Reviewed. GENERAL: Well-developed in no acute distress. NECK: Supple. No JVD or thyromegaly LUNGS: Respirations even and unlabored. Lungs essentially clear to auscultation bilaterally. HEART: Regular rate and rhythm. S1 and S2 heard. Systolic murmur noted EXTREMITIES: Normal range of motion. No clubbing or cyanosis. Peripheral pulses intact. No lower extremity edema ASSESSMENT: Chest pain, status post abnormal Lexiscan Moderate mitral regurgitation Mild to moderate pericardial effusion with no evidence of tamponade Hypertension Hyperlipidemia Diabetes PLAN: Continue current cardiac medications including aspirin, Lipitor, carvedilol, Zetia, Imdur, losartan Patient to undergo cardiac catheterization today with Dr. Hodgson Further recommendations pending patient course Nurse practitioner note has been reviewed by physician. Signing provider agrees with the documented findings, assessment, and plan of care documented by BARN AND PROPERTY MANAGER as a scribe. Objective - Vital Signs Vital signs: Vital Signs Temp 97.7 F 07/24/24 07:30 Pulse 57 L 07/24/24 07:30 Resp 16 07/24/24 07:30 BP 158/75 07/24/24 07:30 Pulse Ox 96 07/24/24 07:30 FiO2 Intake & Output 07/23/24 07/24/24 07/24/24 18:59 06:59 18:59 Intake Total 118 Balance 118 Intake: Oral 118 Other: Voiding Method Toilet # Voids 4 1 - Labs CBC & Chem 7: 07/24/24 04:56 07/24/24 04:56 Labs: Abnormal Lab Results - Last 24 Hours (Table) 07/23/24 07/24/24 07/24/24 Range/Units 17:12 04:56 04:56 RBC 3.55 L (4.10-5.20) X 10*6/uL Hgb 11.0 L (12.0-15.0) g/dL Hct 34.0 L (37.2-46.3) % RDW 15.4 H (11.5-14.5) % Chloride 111 H (96-109) mmol/L Est GFR (CKD-EPI) 47 L (>=60) Glucose 121 H (70-110) mg/dL POC Glucose (mg/dL) 113 H (70-110) mg/dL Calcium 8.5 L (8.7-10.3) mg/dL 07/24/24 Range/Units 06:09 RBC (4.10-5.20) X 10*6/uL Hgb (12.0-15.0) g/dL Hct (37.2-46.3) % RDW (11.5-14.5) % Chloride (96-109) mmol/L Est GFR (CKD-EPI) (>=60) Glucose (70-110) mg/dL POC Glucose (mg/dL) 112 H (70-110) mg/dL Calcium (8.7-10.3) mg/dL
[2024-07-24] MEDS: HEPARIN SODIUM,PORCINE (1 ML) 2,500 UNIT in SODIUM CHLORIDE 0.9% 250 ML IRRIGATION PRN (12:18)
[2024-07-24] MEDS: HEPARIN SODIUM,PORCINE 10,000 UNIT in SODIUM CHLORIDE 0.9% 1,000 ML IRRIGATION PRN (12:18)
[2024-07-24] MEDS: LIDOCAINE 1% INJ 10MG/ML (20 ML MDV) SQ ONE (12:29)
[2024-07-24] MEDS: VERAPAMIL SYRINGE (5 MG/10 ML) INTRAARTER ONE (12:33)
[2024-07-24] MEDS: HEPARIN SODIUM 1,000 UN/ML (10ML VL) IVP ONE ×4 (12:35→13:03)
[2024-07-24] MEDS: fentaNYL (PF) 50 MCG/1 ML VIAL IVP ONE (12:35)
[2024-07-24] MEDS: NITROGLYCERIN 1000MCG/10ML SYRINGE INTRACORON ONE (12:51)
[2024-07-24] MEDS: CLOPIDOGREL 75 MG TAB PO ONE (12:58)
[2024-07-24] MEDS: IOPAMIDOL-300 100ML BTL INJ ONE (13:04)
[2024-07-24] MEDS ORDERED: MAG HYDROX/AL HYDROX/SIMETH 30 ML CUP PO PRN (13:25)
[2024-07-24] MEDS ORDERED: ZOLPIDEM 5 MG TAB PO PRN (13:25)
[2024-07-24] MEDS ORDERED: NITROGLYCERIN SL TABS 0.4 MG TAB SUBLINGUAL PRN (13:25)
[2024-07-24] MEDS ORDERED: RX INFO: IV CONTRAST WAS GIVEN 1 EACH MISC MISCELLANE PRN (13:25)
[2024-07-24] MEDS ORDERED: ATROPINE SULFATE 0.1 MG/ML 10ML SYRINGE IV PRN (13:25)
--- NOTE | 2024-07-24 13:34 | P.CARDCATH ---
Date of Procedure: 07/24/24 Description of Procedure: Cardiac Catheterization: The patient is a 78-year-old female with a history of hypertension, hyperlipidemia, diabetes mellitus who presented with symptoms of chest discomfort and no evidence of enzymatic changes. She underwent an MPI that showed evidence of stress-induced ischemia. Recommendations were made regarding cardiac catheterization, the risks and the complications were discussed with the patient who is in full understanding and agreement. 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 Using Xylocaine Anesthesia and modified Seldinger technique, a 6-[place] sheath was introduced in the right radial artery . Subsequently, selective coronary angiography was performed using a 5-[place] 3.5 bend Judy catheter. Multiple views of the coronary artery including hemiaxial views were obtained. The 5 [place] pigtail catheter was used to cross the aortic valve and LVEDP was calculated. PCI: After removing the catheters a 6 [place] CLS 3.5 guiding catheter was introduced into the system and after cannulating the left main and Omni Doppler flow wire was advanced and after normalizing and positioned in the LAD IFR was measured at 0.76. At that time the decision was made to proceed with spot angioplasty and stenting. [email or web address] [place] eye IVUS catheter was introduced and revealed diffuse disease throughout the LAD with an area of severe stenosis at the takeoff of the septal shape carver. The lumen after the lesion measured 3.5 mm in diameter. After removing the IVUS a 3.5 x 18 mm Xience Skypoint stent was deployed at 16 nydia. Subsequently the balloon was removed, repeat IVUS imaging was performed and revealed good apposition of the stent with no evidence of dissection. Following that wire was removed, images were obtained and revealed stable successful stenting. Following that, catheter and sheath were removed. Hemostasis was obtained with deployment of vascular band . There was no immediate complication. Patient was returned to room in stable condition. Of note, the patient received a total of 8000 units of intravenous heparin as well as intra-arterial verapamil. She received an oral loading dose of clopidogrel. She had chest discomfort that resolved at the end of the procedure. Her ACT was followed. Findings: Fluoroscopy: Significant calcification was noted in the LAD Left main: This is a large size vessel, bifurcating into LAD and left circumflex, the distal LAD has 20 to 30% plaque. LAD: This is a large size vessel, reaching to the apex with a wraparound apex segment calcified. The proximal LAD from the ostium has diffuse plaquing. The very proximal segment has about a 50% plaque there is an eccentric 80% plaque at the takeoff of the first septal shape carver diffuse disease was noted in the mid and distal segment of 30 to 40%. Left circumflex: This is a large dominant vessel, bifurcating distally to PDA and PLV, giving rise to a large obtuse marginal branch in the midsegment. At the takeoff of the obtuse marginal branch there is 2030% plaque, the rest of the vessel has no high-grade stenosis RCA: This is a small nondominant vessel that has no evidence of high-grade stenosis Left Ventriculogram: Not performed Hemodynamics: There was no gradient across the aortic valve, LVEDP was 12-16 mmHg Conclusion: 1. Calcified LAD 2. Diffuse LAD throughout the vessel from the ostium on to the mid segment with a severe stenosis at the takeoff of the first septal shape carver and abnormal IFR 3. Mild disease in the left circumflex 4. Left dominance 5. Successful stenting of the proximal LAD with reduction of stenosis from 80% to less than 5% with TOMEKA-3 flow and IVUS imaging Recommendations: The patient will continue on dual antiplatelet treatment with aspirin and clopidogrel for 6 months without any interruption in addition to aggressive coronary risks modification, maintaining LDL to less than 70 mg/dL. She underwent spot stenting of the LAD. In view of diffuse pattern of disease medi rome therapy will be continued for the rest of the vessel and depending on her progress further recommendations will be made. The findings and the recommendations were discussed with the patient and the family and they were in full understanding and agreement. Duration of sedation is 41 minutes.
--- NOTE | 2024-07-24 16:16 | P.PN ---
Subjective Progress Note Date: 07/24/24 Hospital course: Patient is a very pleasant 78-year-old female with a past medical history of hypertension, hyperlipidemia, hypothyroidism, insulin-dependent diabetes mellitus, brain meningioma, carotid stenosis, and obstructive sleep apnea CPAP dependent nightly. She presented to the emergency department with a chief complaint of chest pain. Patient reports experiencing intermittent chest pain off and on for the last couple of months but states today it seemed much worse. When asked to describe patient states she is having a difficult time describing stating it feels like a flushing sensation or heaviness throughout her midsternal chest. She reports today she came to the emergency department because the pain extended up into her right lower jaw and down her right arm. She reports this pain continues to be intermittent waxing and waning. She denies anything making it better or worse. She denies experiencing a headache, lightheadedness, dizziness, fevers, chills, diaphoresis, palpitations, shortness of breath, cough or congestion, nausea or vomiting, or noticing any swelling/tingling/numbness/weakness in her lower extremities. Patient currently reports this pain is subsided at the moment. Upon arrival to our facility, patient underwent evaluation in the emergency department. Vital signs upon show blood pressure 194/81, heart rate 63, respiratory rate 22, temp 98.0 F, and SpO2 of 97% on room air. EKG completed showing sinus bradycardia at 56 bpm with no significant T wave or ST abnormality showing no signs of acute ischemia upon personal review and interpretation. Chest x-ray completed negative for acute cardiopulmonary process. Labs completed and reviewed. CBC showing a low hematocrit of 37.1 and MPV of 9.3 otherwise normal findings. Coagulation profile unremarkable. CBC showing prerenal azotemia with BUN of 20 otherwise normal findings. Blood glucose 87. Magnesium slightly low 1.7. Liver profile unremarkable. Lipase normal findings at 98. Troponin was negative at less than 0.012. proBNP 149. Patient admitted under services with consultation to cardiology. Troponins were trended all negative at less than 0.012 x 3 draws. Lexiscan stress test completed showing mild to moderate stress-induced ischemic changes along the inferior lateral wall midportion towards the cardiac apex with no fixed defects evident and reported normal ejection fraction 65% and wall motion. Physical exam: Patient was seen and fully evaluated morning. She was visiting with daughter at bedside and awaiting to be taken down for cardiac cath later this morning. She currently denies any chest pain or complaints. Expresses experiencing mild anxiety regarding undergoing heart cath later today. Vital signs reviewed and stable. General: Nontoxic, no distress and appears stated age. Derm: Skin warm and dry, normal coloration for ethnicity. Head: Atraumatic, normocephalic and symmetric. Eyes: EOM's intact, no lid lag, and anicteric sclera Mouth: no lip lesions, mucus membranes moist Cardiovascular: regular rate and rhythm with normal S1S2, no murmur, positive posterior tibial pulses bilaterally, and cap refill < 2 seconds. Lungs: Respirations even, regular, and unlabored on room air. Lungs CTA bilat erally, no rhonchi, no rales, no wheezing, and no accessory muscle usage. Abdominal: soft, nontender to palpation, no guarding, no appreciable organomegaly Ext: ROM intact. No gross muscle atrophy, scant bilateral lower extremity edema, no contractures Neuro: Speech clear, face symmetrical and CN II-XII grossly intact with no noted focal neuro deficits Psych: Alert and oriented to person, place, time, and situation. Appropriate and pleasant affect. Assessment and Plan of Care: Chest pain, failed Delaney scan stress test Hypertension Hyperlipidemia -Cardiology following, discussed plan of care with cardiac BUSINESS MANAGEMENT ASSOCIATE and patient scheduled for cardiac catheterization later today. -Telemetry monitoring -Troponins were trended all negative at less than 0.012 x 3 draws. -Lexiscan stress test completed showing mild to moderate stress-induced ischemic changes along the inferior lateral wall midportion towards the cardiac apex with no fixed defects evident and reported normal ejection fraction 65% and wall motion. -Aspirin 81 mg daily, atorvastatin 40 mg nightly, Zetia 10 mg nightly, carvedilol 25 mg twice daily, and losartan 100 mg daily -Echocardiogram completed and pending results Hypothyroidism Continue daily medication regimen with levothyroxine 112 mcg daily and 162 mcg on Sundays. Insulin-dependent diabetes mellitus Patient to continue Lantus 29 units nightly and has been placed on glycemic protocol with Humalog sliding scale. Obstructive sleep apnea Continue CPAP nightly and while napping. Data and imaging reviewed: Labs completed and reviewed. CBC showing normocytic anemia with hemoglobin 11.0. BMP showing hyperchloremia chloride of 111. Blood glucose 121. Calcium 8.5. Magnesium 1.7 Vital signs reviewed. Blood pressure 158/75, heart rate 57, respiratory rate 16, temp 97.7 F, and SpO2 of 96% on room air. CODE STATUS: Full code DVT prophylaxis: Heparin Anticipated discharge date: Pending clinical course Anticipated discharge place: Home Patient was seen independently by Nurse Practitioner. This document was prepared using [employer] dictation software. Please allow for errors in blacking machine operator while rare they do occur. Arvind Maldonado BUSINESS MANAGEMENT ASSOCIATE rendered care for this patient independently, reviewed the fin dings and plan as documented in the note above and agree with plan. I did not physically speak with or examine the patient on this date. Objective - Vital Signs Vital signs: Vital Signs Temp 97.7 F 07/24/24 07:30 Pulse 57 L 07/24/24 07:30 Resp 16 07/24/24 07:30 BP 158/75 07/24/24 07:30 Pulse Ox 96 07/24/24 07:30 FiO2 Intake & Output 07/23/24 07/24/24 07/24/24 18:59 06:59 18:59 Intake Total 118 Balance 118 Intake: Oral 118 Other: Voiding Method Toilet # Voids 4 1 - Labs CBC & Chem 7: 07/24/24 04:56 07/24/24 04:56 Labs: Abnormal Lab Results - Last 24 Hours (Table) 07/23/24 07/24/24 07/24/24 Range/Units 17:12 04:56 04:56 RBC 3.55 L (4.10-5.20) X 10*6/uL Hgb 11.0 L (12.0-15.0) g/dL Hct 34.0 L (37.2-46.3) % RDW 15.4 H (11.5-14.5) % Chloride 111 H (96-109) mmol/L Est GFR (CKD-EPI) 47 L (>=60) Glucose 121 H (70-110) mg/dL POC Glucose (mg/dL) 113 H (70-110) mg/dL Calcium 8.5 L (8.7-10.3) mg/dL 07/24/24 Range/Units 06:09 RBC (4.10-5.20) X 10*6/uL Hgb (12.0-15.0) g/dL Hct (37.2-46.3) % RDW (11.5-14.5) % Chloride (96-109) mmol/L Est GFR (CKD-EPI) (>=60) Glucose (70-110) mg/dL POC Glucose (mg/dL) 112 H (70-110) mg/dL Calcium (8.7-10.3) mg/dL
[2024-07-24] MEDS: SODIUM CHLORIDE 0.9% 1,000 ML in EMPTY BAG 1 BAG IV SCH (17:03)
[2024-07-24 17:16] LABS: Glucose,Whole Blood 108 mg/dL (70-110)
[2024-07-24 19:59] LABS: Glucose,Whole Blood 123 mg/dL (70-110)
[2024-07-25 06:00] LABS: Glucose,Whole Blood 111 mg/dL (70-110)
[2024-07-25 06:40] LABS: African American GFR (CKD) 60 (>60 ml/min/1.73 sqM); Anion Gap 10 mmol/L; Blood Urea Nitrogen 17 mg/dL (7-17); Calcium 9.3 mg/dL (8.4-10.2); Carbon Dioxide 23 mmol/L (22-30); Chloride 106 mmol/L (98-107); Glucose 100 mg/dL (74-99); Non-African American GFR(CKD) 52 (>60 ml/min/1.73 sqM); Potassium 3.9 mmol/L (3.5-5.1); Sodium 139 mmol/L (137-145)
[2024-07-25 07:38] VITALS: BP 135/72; PULSE 69; RESP 17; TEMP 98.1
[2024-07-25] MEDS: CLOPIDOGREL 75 MG TAB PO SCH (08:16)
[2024-07-25 08:50] LABS: HCT 34.8 % (37.2-46.3); HGB 11.6 g/dL (12.0-15.0); MCH 31.4 pg (27.0-32.0); MCHC 33.3 g/dL (32.0-37.0); MCV 94.1 FL (80.0-97.0); Mean Platelet Volume 9.8 FL (9.5-12.2); NRBC Per 100 WBC 0 X 10*3/uL (0.00-0.01); Platelet Count 222 X 10*3/uL (140-440); RDW 14.9 % (11.5-14.5)
--- NOTE | 2024-07-25 10:10 | P.PN ---
Subjective HISTORY OF PRESENT ILLNESS: The patient is a 78-year-old female with known history of hypertension and diabetes who is followed by Dr. Pederson who presents with symptoms of chest discomfort and right-sided jaw discomfort. In June she had an episode of feeling hot and sweaty while playing cards that resolved with resting and laying down. She was subsequently evaluated by her icicle machine operator and scheduled to undergo a stress test and an echocardiogram soon. Yesterday after watering her plants she felt some discomfort in the chest with some right jaw discomfort that persisted for over half an hour, came into the emergency room and subsequently admitted. She is relatively active but limited by her hip discomfort. She denies any exertional chest discomfort, dyspnea on exertion, dizziness or palpitations on a regular basis. She has no PND, orthopnea or peripheral edema. On presentation she was in sinus mechanism and her troponin was normal. She is pain-free at this point. She had a cardiac catheterization about 5 years ago that was reported to be normal. Medications: Amaryl, Neurontin, losartan 100 mg daily, ezetimibe 10 mg daily, Coreg 25 mg twice a day, isosorbide mononitrate 30 mg daily, insulin, levothyroxine, aspirin 07/24/2024 Patient is status post Lexiscan stress test yesterday revealing stress-induced ischemic changes along inferior lateral wall midportion towards the cardiac apex. No fixed defects evident. Echocardiogram completed revealing ejection fraction 55 to 60%, moderate MR, mild TR, mild to moderate pericardial effusion with no evidence of tamponade. Patient examined this morning at bedside. She denies any further episodes of chest pain or pressure. She denies shortness of breath. Vital signs are stable. 07/26/2023 Patient examined this morning at bedside. Patient is status post cardiac angle terization revealing diffuse LAD throughout the vessel from the ostium onto the mid segment with severe stenosis at the takeoff of the first septal set off blocker and abnormal IFR, mild disease in left circumflex. Patient underwent stenting of the proximal LAD PHYSICAL EXAM: VITAL SIGNS: Reviewed. GENERAL: Well-developed in no acute distress. NECK: Supple. No JVD or thyromegaly LUNGS: Respirations even and unlabored. Lungs essentially clear to auscultation bilaterally. HEART: Regular rate and rhythm. S1 and S2 heard. Systolic murmur noted EXTREMITIES: Normal range of motion. No clubbing or cyanosis. Peripheral pulses intact. No lower extremity edema ASSESSMENT: Chest pain, status post abnormal Lexiscan, status post stenting of the proximal LAD Moderate mitral regurgitation Mild to moderate pericardial effusion with no evidence of tamponade Hypertension Hyperlipidemia Diabetes PLAN: Continue dual antiplatelet therapy with aspirin and Plavix for 6 months Continue high intensity statin. LDL goal less than 70 Continue additional cardiac medications Patient is stable for discharge home today from a cardiac standpoint Patient to follow-up postdischarge with her primary icicle machine operator Nurse practitioner note has been reviewed by physician. Signing provider agrees with the documented findings, assessment, and plan of care documented by AUTHOR'S AGENT as a scribe. Objective - Vital Signs Vital signs: Vital Signs Temp 98.1 F 07/25/24 07:00 Pulse 69 07/25/24 07:00 Resp 17 07/25/24 07:00 BP 135/72 07/25/24 07:00 Pulse Ox 95 07/25/24 07:00 FiO2 Intake & Output 07/24/24 07/25/24 07/25/24 18:59 06:59 18:59 Intake Total 236 Balance 236 Intake: Oral 236 Other: Voiding Method Toilet # Voids 3 2 - Labs CBC & Chem 7: 07/25/24 05:30 07/25/24 05:30 Labs: Abnormal Lab Results - Last 24 Hours (Table) 07/24/24 07/25/24 07/25/24 Range/Units 19:57 05:30 05:30 RBC 3.70 L (4.10-5.20) X 10*6/uL Hgb 11.6 L (12.0-15.0) g/dL Hct 34.8 L (37.2-46.3) % RDW 14.9 H (11.5-14.5) % Glucose 100 H (74-99) mg/dL POC Glucose (mg/dL) 123 H (70-110) mg/dL 07/25/24 Range/Units 05:59 RBC (4.10-5.20) X 10*6/uL Hgb (12.0-15.0) g/dL Hct (37.2-46.3) % RDW (11.5-14.5) % Glucose (74-99) mg/dL POC Glucose (mg/dL) 111 H (70-110) mg/dL
[2024-07-25 10:26] VITALS: BMI 35.6
--- NOTE | 2024-07-25 11:08 | P.DS ---
Providers Date of admission: 07/22/24 13:42 Expected date of discharge: 07/25/24 Attending physician: Rachele Peralta MD Consults: 07/22/24 13:39 Consult Physician Routine Consulting Provider: Nicolette Matamoros Consult Reason/Comments: chest pain Do you want consulting provider notified?: Yes 07/24/24 13:25 Consult Physician Routine Consulting Provider: Nicolette Matamoros Consult Reason/Comments: Post Interventional Patient Do you want consulting provider notified?: Already Contacted Primary care physician: Mitch Hayes [facility] Course: Discharge Diagnosis: Chest pain, failed Delaney scan stress test. EKG completed showing sinus bradycardia at 56 bpm with no significant T wave or ST abnormality showing no signs of acute ischemia upon personal review and interpretation. Chest x-ray completed negative for acute cardiopulmonary process. Troponins were trended all negative at less than 0.012 x 3 draws. Echocardiogram completed showing preserved EF 55 to 60% with moderate mitral regurgitation and mild tricuspid regurgitation and mild to moderate pericardial effusion with no evidence of tamponade. Lexiscan stress test completed showing mild to moderate stress- induced ischemic changes along the inferior lateral wall midportion towards the cardiac apex with no fixed defects evident and reported normal ejection fraction 65% and wall motion. Cardiac catheterization completed on 07/24/24 showing calcified LAD with diffuse LAD throughout vessel from the ostium to the mid segment with a severe stenosis at the takeoff of the first septal later and abnormal IFR, treating engineer helper performed successful stenting of the proximal LAD with a reported reduction of stenosis from 80% down to less than 5%. Patient discharged home with cardiac medication regimen consisting of Plavix 75 mg daily, aspirin 81 mg daily, atorvastatin 40 mg nightly, Zetia 10 mg nightly, carvedilol 25 mg twice daily, and losartan 100 mg daily. Patient instructed she will need to follow-up outpatient with her PCP in 1 to 2 days and with her primary treating engineer helper, Dr. Pederson in 1 to 2 weeks. Pericardial effusion Hypertension Hyperlipidemia Hypothyroidism. Continue daily medication regimen with levothyroxine 112 mcg daily and 162 mcg on Sundays. Insulin-dependent diabetes mellitus. Patient to continue Lantus 29 units nightly and grams twice daily. Hemoglobin A1c 6.1%. Obstructive sleep apnea. Continue CPAP nightly and while napping. Hospital Course: Patient is a very pleasant 78-year-old female with a past medical history of hypertension, hyperlipidemia, hypothyroidism, insulin-dependent diabetes mellitus, brain meningioma, carotid stenosis, and obstructive sleep apnea CPAP dependent nightly. She presented to the emergency department on 07/22/2024 with a chief complaint of chest pain. Upon arrival to our facility, patient underwent evaluation in the emergency department. Vital signs upon arrival revealed blood pressure 194/81, heart rate 63, respiratory rate 22, temp 98.0 F, and SpO2 of 97% on room air. EKG completed showing sinus bradycardia at 56 bpm with no significant T wave or ST abnormality showing no signs of acute ischemia upon personal review and interpretation. Chest x-ray completed negative for acute cardiopulmonary process. Labs completed and reviewed. CBC showing a low hematocrit of 37.1 and MPV of 9.3 otherwise normal findings. Coagulation profile unremarkable. CBC showing prerenal azotemia with BUN of 20 otherwise normal findings. Blood glucose 87. Magnesium slightly low 1.7. Liver profile unremarkable. Lipase normal findings at 98. Troponin was negative at less than 0.012. proBNP 149. Patient admitted under services with consultation to cardiology. Troponins were trended all negative at less than 0.012 x 3 draws. Echocardiogram completed showing preserved EF 55 to 60% with moderate mitral regurgitation and mild tricuspid regurgitation and mild to moderate pericardial effusion with no evidence of tamponade. Lexiscan stress test completed showing mild to moderate stress-induced ischemic changes along the inferior lateral wall midportion towards the cardiac apex with no fixed defects evident and reported normal ejection fraction 65% and wall motion. Cardiac catheterization completed on 07/24/24 showing calcified LAD with diffuse LAD throughout vessel from the ostium to the mid segment with a severe stenosis at the takeoff of the first septal later and abnormal IFR, treating engineer helper performed successful stenting of the proximal LAD with a reported reduction of stenosis from 80% down to less than 5%. Patient started on dual antiplatelet therapy with aspirin and Plavix. She was cleared from cardiac perspective for discharge. Patient currently remains free from any complaints at this time including headache, lightheadedness, dizziness, chest pain, palpitations, shortness of breath or experiencing any numbness/tingling/weakness in her extremities. Patient medically optimized for discharge blood pressure 35 69, respiratory rate 17, temp 98.1 F, and SpO2 of 95% on room air. Patient to follow-up outpatient with PCP in 1 to 2 days and with treating engineer helper in 1 week. Per patient's request, discharge summary being f axed to her primary treating engineer helper Dr. Fabio Pederson. Physical exam: Vital signs reviewed and stable. General: Nontoxic, no distress and appears stated age. Derm: Skin warm and dry, normal coloration for ethnicity. Head: Atraumatic, normocephalic and symmetric. Eyes: EOM's intact, no lid lag, and anicteric sclera Mouth: no lip lesions, mucus membranes moist Cardiovascular: regular rate and rhythm with normal S1S2, soft systolic murmur, positive posterior tibial pulses bilaterally, and cap refill < 2 seconds. Cardiac cath access site right wrist dressing in place with no noted hematoma, drainage, swelling, or significant bruising. Movement and sensation intact to right hand and fingers. Lungs: Respirations even, regular, and unlabored on room air. Lungs CTA bilaterally, no rhonchi, no rales, no wheezing, and no accessory muscle usage. Abdominal: soft, nontender to palpation, no guarding, no appreciable organomegaly Ext: ROM intact. No gross muscle atrophy, scant bilateral lower extremity edema, no contractures Neuro: Speech clear, face symmetrical and CN II-XII grossly intact with no noted focal neuro deficits Psych: Alert and oriented to person, place, time, and situation. Appropriate and pleasant affect. A total of 37 minutes of time were spent preparing this complex discharge summary. Pt was discharged on 07/25/2024 at 9:53 AM Patient was seen independently by Nurse Practitioner. This document was prepared using [email or web address] dictation software. Please allow for errors in mining captain while rare they do occur. Arvind Maldonado NP rendered care for this patient independently, reviewed the findings and plan as documented in the note above. I did not physically speak with or examine the patient on this date. Patient Condition at Discharge: Stable Plan - Discharge Summary New Discharge Prescriptions: New Atorvastatin [Lipitor] 40 mg PO HS 30 Days #30 tab Clopidogrel [Plavix] 75 mg PO DAILY 30 Days #30 tab Continue Levothyroxine Sodium [Synthroid] 112 mcg PO DAILY@0600 Aspirin 81 mg PO DAILY Omeprazole 20 mg PO DAILY@1800 Isosorbide Mononitrate ER [Imdur] 30 mg PO HS Indapamide [Lozol] 1.25 mg PO MOWEFR carvediloL [Coreg] 25 mg PO BID Glimepiride [Amaryl] 0.5 mg PO AC-BID Gabapentin [Neurontin] 300 mg PO HS Losartan Potassium 100 mg PO DAILY [place]-3 Fatty Acids/Fish Oil [Fish Oil 1,000 mg Softgel] 1 cap PO BID Multivitamins, Thera [Multivitamin (formulary)] 1 tab PO DAILY Ezetimibe [Zetia] 10 mg PO HS allopurinoL [Zyloprim] 100 mg PO DAILY Levothyroxine Sodium [Synthroid] 50 mcg PO DOHERTY@0600 Insulin Glargine,Hum.rec.anlog [Lantus Solostar Pen] 29 unit SQ HS Methotrexate Sodium 25mg/Ml Solution 25 mg IM MO Discontinued methylPREDNISolone Dose Pack [Medrol Dose Pack] See Taper PO DIRECTED PRN PRN Reason: breathing/inflammation Discharge Medication List Aspirin 81 mg PO DAILY 04/25/17 [History] Levothyroxine Sodium [Synthroid] 112 mcg PO DAILY@0600 04/25/17 [History] Omeprazole 20 mg PO DAILY@1800 02/05/18 [History] Ezetimibe [Zetia] 10 mg PO HS 02/20/21 [History] Indapamide [Lozol] 1.25 mg PO MOWEFR 02/20/21 [History] Isosorbide Mononitrate ER [Imdur] 30 mg PO HS 02/20/21 [History] Multivitamins, Thera [Multivitamin (formulary)] 1 tab PO DAILY 02/20/21 [History] [place]-3 Fatty Acids/Fish Oil [Fish Oil 1,000 mg Softgel] 1 cap PO BID 02/20/21 [History] allopurinoL [Zyloprim] 100 mg PO DAILY 02/20/21 [History] Insulin Glargine,Hum.rec.anlog [Lantus Solostar Pen] 29 unit SQ HS 11/23/21 [History] Levothyroxine Sodium [Synthroid] 50 mcg PO DOHERTY@0600 11/23/21 [History] carvediloL [Coreg] 25 mg PO BID 11/23/21 [History] Gabapentin [Neurontin] 300 mg PO HS 07/22/24 [History] Glimepiride [Amaryl] 0.5 mg PO AC-BID 07/22/24 [History] Losartan Potassium 100 mg PO DAILY 07/22/24 [History] Methotrexate Sodium 25mg/Ml Solution 25 mg IM MO 07/22/24 [History] Atorvastatin [Lipitor] 40 mg PO HS 30 Days #30 tab 07/25/24 [Rx] Clopidogrel [Plavix] 75 mg PO DAILY 30 Days #30 tab 07/25/24 [Rx] Follow up Appointment(s)/Referral(s): Grant Hodgson MD [STAFF PHYSICIAN] - 1 Week (Office will call patient with appointment ) Mitch Hayes DO [Primary Care Provider] - 1-2 days Patient Instructions/Handouts: *Surgery [facility] - After Heart Catheterization - Computer Systems Administrator Instructions, Heart Catheterization (GEN) Activity/Diet/Wound Care/Special Instructions: Discharge Instructions After Cardiac Catheterization with Stent Placement: Aspirin as anti-platelet therapy - Aspirin lessens the chance of heart attack and stroke. It helps prevent blood clots from forming, allowing the blood to flow more easily. Each day, you will take one 81 mg (non-enteric coated) tablet daily. Do not stop unless instructed by your doctor. Anti-platelet Therapy. -In addition to aspirin, you will take one additional anti-platelet medication daily. This will help prevent a clot from forming in your stent: Plavix (clopidogrel) -You will need to take your anti-platelet medicine every day for 12 months -Please consult your heart doctor before you stop this medicine. -They may want you to continue for a longer period of time. Statins -A statin medication lowers cholesterol levels in the blood. This helps slow the progression of heart disease. - Please take your statin medication as prescribed by your doctor. -You may be taking one of the following statins: Atorvastatin Beta blockers Your Medication: Carvedilol Is a medication that protects your heart from stress and can prevent future heart attacks. It can slow your heart rate. It can take weeks for your body to get used to a beta abhijit. The dose may need to be changed a few times as your body adjusts Angiotensin receptor abhijit (ARB) Your medication: Losartan is an angiotensin receptor abhijit in the ER used to reduce cardiovascular events and decrease the risk of developing diabetes, these medications are also known to prevent left ventricular remodeling after you have suffered a myocardial infarction. Do not stop taking these medicines without talking to your doctor. -Take all other medicines as directed by your doctor. Do not take any extra aspirin or ibuprofen. They can increase your risk of bleeding. Many uaxd-hqo-gkclyuv drugs contain aspirin. If you are unsure about what the drug contains, check with your pharmacist before taking it. -For mild discomfort, you may take plain Tylenol (acetaminophen). Follow dose directions, but do not take more than 4,000 mg of acetaminophen in 24 hours. Contact your doctor right away or go to the nearest hospital Emergency Room if you have: -Severe angina or chest pain. (This may be a sign of a problem with your stent.) -Excessive bruising, blood in urine/stool or black tarry stools. Healthy LifeStyle It is important to keep a heart healthy lifestyle. This can improve your long- term health and decrease your risk for heart attacks. -Managing your blood cholesterol, blood pressure, weight, and stress. -The importance of regular exercise. -Heart Healthy Diet: Include more plants in your diet. Eat lots of fresh vegetables and fresh fruits. Eat good fats: plant based oils, avocado, nuts, beans, legumes. Eat more seafood. Limit Meat. Switch to whole grains. -Avoid fried foods and animal fats and processed meats Follow up with your PCP, Dr. Nascimento and [facility] with Dr. Hodgson Thank you for allowing us to participate in your care, it was truly a pleasure having you for our patient!!! Hope the wedding turns out wonderfully!! Discharge Disposition: HOME SELF-CARE
[2024-07-27] MEDS ORDERED: LEVOTHYROXINE 50 MCG TAB PO SCH (06:00)
== END 2024-07-25 10:48 | disposition home or self-care (01) | DRG 322 ==
LOC: EC 11:33 → 6NMEDSUR 13:41 → OBSVTOIN 13:42 → 6NMEDSUR 14:53
PROVIDERS: ADMIT Student in an Organized Health Care Education/Training Program; ATTEND Student in an Organized Health Care Education/Training Program
PROC: 4A02XM4 Measurement of Cardiac Total Activity, External Approach (ICD-10-PCS; principal; 2024-07-24 12:30)
PROC: 027034Z Dilation of Coronary Artery, One Artery with Drug-eluting Intraluminal Device, Percutaneous Approach (ICD-10-PCS; principal; 2024-07-24 12:30)
PROC: 4A023N7 Measurement of Cardiac Sampling and Pressure, Left Heart, Percutaneous Approach (ICD-10-PCS; principal; 2024-07-24 12:30)
PROC: B240ZZ3 Ultrasonography of Single Coronary Artery, Intravascular (ICD-10-PCS; principal; 2024-07-24 12:30)
PROC: 4A033BC Measurement of Arterial Pressure, Coronary, Percutaneous Approach (ICD-10-PCS; principal; 2024-07-24 12:30)
PROC: B2111ZZ Fluoroscopy of Multiple Coronary Arteries using Low Osmolar Contrast (ICD-10-PCS; principal; 2024-07-24 12:30)
DX: I25.10 Atherosclerotic heart disease of native coronary artery without angina pectoris (principal); I31.39 Other pericardial effusion (noninflammatory); E87.8 Other disorders of electrolyte and fluid balance, not elsewhere classified; E11.9 Type 2 diabetes mellitus without complications; E03.9 Hypothyroidism, unspecified; I10 Essential (primary) hypertension; I34.0 Nonrheumatic mitral (valve) insufficiency; I65.29 Occlusion and stenosis of unspecified carotid artery; D64.9 Anemia, unspecified; Z79.4 Long term (current) use of insulin; I25.84 Coronary atherosclerosis due to calcified coronary lesion; E78.5 Hyperlipidemia, unspecified; K21.9 Gastro-esophageal reflux disease without esophagitis; G47.33 Obstructive sleep apnea (adult) (pediatric); Z79.82 Long term (current) use of aspirin; Z79.890 Hormone replacement therapy; Z79.84 Long term (current) use of oral hypoglycemic drugs; Z79.899 Other long term (current) drug therapy; Z88.8 Allergy status to other drugs, medicaments and biological substances
CPT/HCPCS: 36415; 71046; 78452; 80048; 80053; 83036; 83690; 83735; 83880; 84484; 85025; 85027; 85610; 85730; 92978; 93005; 93017; 93306; 93458; 93799; 96360; 96372; 99285